=== PATIENT | female | born 1990 | race Caucasian/White ===

== ENCOUNTER → 2016-10-25 | Outpatient (CLI) | payer BC | END | disposition home or self-care (01) | LOC: LABWHC1 12:43 | PROVIDERS: ATTEND Internal Medicine Endocrinology, Diabetes & Metabolism | DX: E03.9 Hypothyroidism, unspecified (principal); E55.9 Vitamin D deficiency, unspecified | CPT/HCPCS: 36415; 82306; 84443 ==

== ENCOUNTER → 2017-03-13 | Outpatient (CLI) | payer BC ==
[2017-03-13 13:31] VITALS: BP 120/85; PULSE 75; RESP 16; TEMP 97.6; BMI 38.8
--- NOTE | 2017-03-13 15:03 | P.HPBAR ---
Bariatric H&P - History & Physicial H&P Date: 03/13/17 History & Physicial: Visit/CC: sleeve consult Patient initial contact: Initial weight: 97.069 kg Initial weight in pounds: 214.00 Height: 5 ft 2.25 in Initial BMI: 38.8 Last weight: Current weight: 97.069 kg Current weight in pounds: 214.00 Current BMI: 38.8 [place] body weight (based on NIH guidelines): 50.462 kg Excess body weight loss: 0.0% The patient is a 26 year-old F who presents for Bariatric Assessment. Patient presents today to discuss bariatric surgery. She has been investigating weight loss surgery for quite some time. She has a close friend who underwent sleeve gastrectomy in the past. She went to a recent bariatric seminar. She is interested in sleeve gastrectomy at this time. She has tried a variety of different weight loss programs thus far without any sustained success. She complains of mild GERD symptoms at times depending on what she eats. No history of DVT or dysphagia. She just recently began her 6 month supervised weight loss program. She has a history of microscopic colitis and was taking Asacol for a while. No history of ulcerative colitis or Crohn's. She has infertility issues and she is hoping that her weight loss will improve that. Review of Systems The patient denies any acute changes in vision or hearing, no dysphagia or odynophagia, no chest pain or shortness of breath, no dysuria or hematuria, no headache, no runny nose, no rectal bleeding or melena, no unexplained weight loss Past Medical History Past Medical History: Sleep Apnea/CPAP/BIPAP, Thyroid Disorder Additional Past Medical History / Comment(s): infertility, "Microscopic" colitis History of Any Multi-Drug Resistant Organisms: None Reported Past Surgical History: Orthopedic Surgery Additional Past Surgical History / Comment(s): bilateral bunyon surgery, plastic surgery from dog attack Past Anesthesia/Blood Transfusion Reactions: Previous Problems w/ Anesthesia Additional Past Anesthesia/Blood Transfusion Reaction / Comm: post anesthesia low heart rate agitation Past Psychological History: No Psychological Hx Reported Smoking Status: Former smoker - Past Family History Mother Additional Family Medical History / Comment(s): morbid obesity, has had bariatric sx Surgical - Exam Vital Signs Temp Pulse Resp BP 97.6 F 75 16 120/85 03/13/17 13:15 03/13/17 13:15 03/13/17 13:15 03/13/17 13:15 Physical exam: General: Well-developed, well-nourished HEENT: Normocephalic, sclerae nonicteric Abdomen: Nontender, nondistended Extremities: No edema Neuro: Alert and oriented Bariatric Assessment & Plan (1) Obesity (BMI 35.0-39.9 without comorbidity) Narrative/Plan: Patient will complete her 6 month supervised weight loss program. We will tentatively schedule patient for upper endoscopy in June. The surgical procedures were once again discussed along with their risks and benefits in detail. All questions were appropriately answered. The patient will contact me if any additional questions arise. Status: Acute Bariatric Checklist Checklist: Plan: Checklist: EGD: 1. Hiatal hernia: 2. H. Pylori: HgbA1c: Vitamin D: Smoking: Former smoker Primary care physician referral: Rafal Goetz Psychiatry clearance: Cardiology clearance: Sleep study: Diet journal: VTE risk score: VTE risk level: Rehab needs at discharge:
== END | disposition home or self-care (01) ==
LOC: BARWHC3 13:03
PROVIDERS: ATTEND Surgery
DX: E66.9 Obesity, unspecified (principal); Z68.38 Body mass index [BMI] 38.0-38.9, adult; Z87.891 Personal history of nicotine dependence
CPT/HCPCS: 99201

== ENCOUNTER → 2017-03-14 | Outpatient (CLI) | payer BC | END | disposition home or self-care (01) | LOC: LABWHC1 07:36 | PROVIDERS: ATTEND Internal Medicine Endocrinology, Diabetes & Metabolism | DX: E55.9 Vitamin D deficiency, unspecified (principal); E03.8 Other specified hypothyroidism; R53.83 Other fatigue; Z13.220 Encounter for screening for lipoid disorders; Z13.1 Encounter for screening for diabetes mellitus | CPT/HCPCS: 36415; 80061; 82306; 82533; 82947; 84443 ==

== ENCOUNTER 2017-05-01 19:21 | Emergency (ER) | payer BC ==
[2017-05-01 19:51] VITALS: RESP 18
[2017-05-01] MEDS ORDERED: SODIUM CHLORIDE 0.9% 1,000 ML IV STA (20:16)
[2017-05-01] MEDS ORDERED: HYDROmorphone 1 MG/ML 1 ML SYRINGE IVP STA (20:16)
[2017-05-01] MEDS ORDERED: ONDANSETRON 4 MG/2 ML VIAL IVP STA (20:16)
--- NOTE | 2017-05-01 20:46 | XR ---
EXAMINATION TYPE: XR KUB DATE OF EXAM: 05/01/2017 COMPARISON: NONE HISTORY: Pain TECHNIQUE: Single supine KUB image of the abdomen is obtained FINDINGS: Small bowel demonstrates no evidence for dilatation or air fluid levels. Gas and fecal material is seen in non-distended colon. No convincing evidence for pneumoperitoneum. No unusual calcifications. The lung bases are clear. The osseous structures are intact. IMPRESSION: 1. Overall nonobstructive bowel gas pattern.
[2017-05-01 20:47] LABS: Basophils # (A) 0.1 k/uL (0-0.2); Basophils % (A) 0 %; CH 31.8; CHCM 34.4; Eosinophils # (A) 0.1 k/uL (0-0.7); Eosinophils % (A) 1 %; HCT 39.3 % (34.0-46.0); HDW 2.61; HGB 13.1 gm/dL (11.4-16.0); Luc # (Auto) 0.16; Luc % (Auto) 1; Lymphocytes # (A) 1.5 k/uL (1.0-4.8); Lymphocytes % (A) 10 %; MCH 31.1 pg (25.0-35.0); MCHC 33.4 g/dL (31.0-37.0); Mean Platelet Volume 7.1; Monocytes # (A) 0.5 k/uL (0-1.0); Monocytes % (A) 3 %; Neutrophils # (A) 12.6 k/uL (1.3-7.7); Neutrophils % (A) 84 %; RBC 4.23 m/uL (3.80-5.40); RDW 13.1 % (11.5-15.5); WBC (Perox) 14.28
[2017-05-01 20:56] LABS: ALT 35 U/L (9-52); AST 20 U/L (14-36); Alkaline Phosphatase 84 U/L (38-126); Amylase 31 U/L (30-110); Anion Gap 9 mmol/L; Blood Urea Nitrogen 12 mg/dL (7-17); Calcium 9.3 mg/dL (8.4-10.2); Carbon Dioxide 24 mmol/L (22-30); Chloride 105 mmol/L (98-107); Glucose 110 mg/dL (74-99); Iron 42 ug/dL (37-170); Non-African American GFR(MDRD) >60 (>60 ml/min/1.73 sqM); Potassium 4.3 mmol/L (3.5-5.1); Sodium 138 mmol/L (137-145); Total Bilirubin 0.4 mg/dL (0.2-1.3); Total Protein 6.9 g/dL (6.3-8.2)
[2017-05-01 20:59] LABS: Appearance,Urine Clear (Clear); Bacteria,Urine Rare /hpf; Bilirubin,Urine Negative (Negative); Glucose,Urine (UA) Negative (Negative); Ketones,Urine Negative (Negative); Leukocyte Esterase,Urine Small (Negative); Mucus,Urine Rare /hpf; Nitrite,Urine Negative (Negative); PH, Urine 5.5 (5.0-8.0); Particle Count 4855; Protein,Urine Trace (Negative); RBC,Urine <1 /hpf (0-5); Specific Gravity,Urine 1.026 (1.001-1.035); Squamous Epithelial Cell,Urine 4 /hpf (0-4); UA Billing (MACRO vs. MICRO) MICRO; Urobilinogen,Urine <2.0 mg/dL (<2.0); WBC,Urine 2 /hpf (0-5)
[2017-05-01 21:05] LABS: % Iron Saturation 13.8 % (20-50); Total Iron Binding Capacity 305 ug/dL (265-497)
--- NOTE | 2017-05-01 22:47 | ED ---
Abdominal Pain HPI <Esau Kelly - Last Filed: 05/02/17 00:18> - General Source: patient, family Mode of arrival: ambulatory Limitations: no limitations <Mabel Weinstein - Last Filed: 05/02/17 04:43> - General Chief Complaint: Abdominal Pain Stated Complaint: Abd Pain Time Seen by Provider: 05/01/17 19:57 - History of Present Illness Initial Comments: 26 year-old female patient presents to emergency department today for complaints of severe lower abdominal pain. The patient states that she had a few episodes of diarrhea and some abdominal cramping while at work today. Patient states when she came home she had a very large forceful liquid bowel movement, and immediate pain across her lower abdomen. Patient states the pain is sharp and severe. Patient states the pain worsens with any movement. 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 Patient denies any dysuria, hematuria, urinary urgency or frequency. Denies any abnormal vaginal discharge. Patient denies any fever, chills, chest pain, shortness of breath, dizziness, weakness, nausea, vomiting, or constipation. Patient states that her bowel movements are usually regular. Mother is in room with patient and is concerned because there is a family history of hemachromatosis. Patient was seen at urgent care clinic today and was sent here for concerns of rule out appendicitis and ectopic as patient has been trying to become . Patient states she has been trying for the last 2 years to become without success. Patient states she did have a procedure done to her right fallopian tube and the pain feels similar to that. Patient denies any history of . (Mabel Weinstein) - Related Data Home Medications Medication Instructions Recorded Confirmed Cholecalciferol [Vitamin D3] 5,000 unit PO DAILY 03/12/17 05/01/17 Levothyroxine Sodium [Synthroid] 50 mcg PO QAM 03/12/17 05/01/17 Ergocalciferol [Vitamin D2] 50,000 unit PO MO 05/01/17 05/01/17 Allergies Allergy/AdvReac Type Severity Reaction Status Date / Time dimethicone Allergy Rash/Hives Verified 05/01/17 20:18 [From A and D Emollient] glycerin Allergy Rash/Hives Verified 05/01/17 20:18 [From A and D Emollient] neomycin Allergy Rash/Hives Verified 05/01/17 19:51 stearyl alcohol Allergy Rash/Hives Verified 05/01/17 20:18 [From A and D Emollient] Review of Systems ROS Other: All systems not noted in ROS Statement are negative. <KellyEsau - Last Filed: 05/02/17 00:18> ROS Other: All systems not noted in ROS Statement are negative. <Mabel Weinstein - Last Filed: 05/02/17 04:43> ROS Statement: Those systems with pertinent positive or pertinent negative responses have been documented in the HPI. Past Medical History Past Medical History: Sleep Apnea/CPAP/BIPAP, Thyroid Disorder Additional Past Medical History / Comment(s): infertility, "Microscopic" colitis History of Any Multi-Drug Resistant Organisms: None Reported Past Surgical History: Orthopedic Surgery Additional Past Surgical History / Comment(s): bilateral bunyon surgery, plastic surgery from dog attack Past Anesthesia/Blood Transfusion Reactions: Previous Problems w/ Anesthesia Additional Past Anesthesia/Blood Transfusion Reaction / Comment(s): post anesthesia low heart rate agitation Past Psychological History: No Psychological Hx Reported Smoking Status: Former smoker Past Alcohol Use History: Rare Past Drug Use History: None Reported - Past Family History Mother Additional Family Medical History / Comment(s): morbid obesity, has had bariatric sx <Mabel Weinstein - Last Filed: 05/02/17 04:43> General Exam Limitations: no limitations General appearance: alert, in distress (Mild) Eye exam: Present: normal appearance, PERRL, EOMI. Absent: scleral icterus, conjunctival injection, periorbital swelling ENT exam: Present: normal exam, mucous membranes moist Neck exam: Present: normal inspection. Absent: tenderness, meningismus, lymphadenopathy Respiratory exam: Present: normal lung sounds bilaterally. Absent: respiratory distress, wheezes, rales, rhonchi, stridor Cardiovascular Exam: Present: regular rate, normal rhythm, normal heart sounds. Absent: systolic murmur, diastolic murmur, rubs, gallop, clicks GI/Abdominal exam: Present: soft, tenderness (Extremely tender to palpation to the right lower quadrant and left lower quadrant.), guarding, normal bowel sounds. Absent: distended, rebound, rigid External exam: Present: normal external exam. Absent: erythema, swelling, lesions, lacerations, ecchymosis Speculum exam: Present: normal speculum exam, vaginal discharge (White physiologic discharge). Absent: erythema, cervical discharge, vaginal bleeding , tissue By manual exam: Present: cervical motion tenderness, adnexal tenderness (Left), uterine tenderness. Absent: normal by manual exam, adnexal mass, uterine enlargement Extremities exam: Present: normal inspection, full ROM, normal capillary refill. Absent: tenderness, pedal edema, joint swelling, calf tenderness Back exam: Present: normal inspection. Absent: CVA tenderness (R), CVA tenderness (L) Neurological exam: Present: alert, oriented X3, CN II-XII intact Psychiatric exam: Present: normal affect, normal mood Skin exam: Present: warm, dry, intact, normal color. Absent: rash <Mabel Weinstein - Last Filed: 05/02/17 04:43> Course <Esau Kelly - Last Filed: 05/02/17 00:18> <Mabel Weinstein - Last Filed: 05/02/17 04:43> Vital Signs 05/01/17 05/01/17 05/02/17 19:48 20:11 00:42 Temperature 99.0 F 98.3 F Pulse Rate 94 71 61 Respiratory 18 18 18 Rate Blood Pressure 133/81 139/89 105/55 O2 Sat by Pulse 100 100 99 Oximetry - Reevaluation(s) Reevaluation #1: 05/02/17 00:18 Patient reevaluated by myself, Dr. Kelly. Patient resting comfortably in bed. Abdomen is soft with mild left lower pelvic tenderness. Patient is made aware of ultrasound findings. Patient is also aware of beta hCG. Case was discussed in detail with Dr. Skinner, covering for Dr. zaldivar to yair who does recommend repeat beta hCG in 48 hours and follow up following that. Patient is made aware specifically that ectopic has not been ruled out at this time. Patient is advised to return if she has increased pain, vaginal bleeding, shortness of breath, lightheadedness or dizziness, feeling like she is going to pass out or worsening symptoms. (Esau Kelly) Medical Decision Making - Lab Data Result diagrams: 05/01/17 20:32 05/01/17 20:32 <Esau Kelly - Last Filed: 05/02/17 00:18> - Lab Data Result diagrams: 05/01/17 20:32 05/01/17 20:32 - Radiology Data Radiology results: report reviewed, image reviewed <Mabel Weinstein - Last Filed: 05/02/17 04:43> - Medical Decision Making 26 year-old female patient presented for evaluation of pelvic pain and diarrhea. KUB x-ray of the abdomen was obtained prior to hCG showed no overall nonobstructive bowel gas pattern. Lab work was unremarkable but did show a beta hCG level of 76, and a white blood cell count was elevated at 15. Urine was sent for culture. Pelvic ultrasound was obtained and did show a 4.6 cm mass on the left ovary, there was also some free fluid in the pelvis thought to possibly a ruptured hemorrhagic cyst. They were unable to rule out ectopic . Dr. Kelly my attending did speak to Dr. Skinner the chief station engineer on- call for Dr. Larson who states that patient can be discharged home at this time to follow-up in the office after repeat B-HCG. Also recommended a repeat beta hCG Quant in 48 hours. Patient was instructed to use Tylenol for pain control. Instructed to follow-up with her primary care physician as well as Dr. INSURANCE LOSS ADJUSTER in one to 2 days. Instructed to return here immediately for any new , worsening, or concerning symptoms. Patient verbalized understanding and agreed with this plan. (Mabel Weinstein) - Lab Data Lab Results 05/01/17 05/01/17 05/01/17 Range/Units 20:32 20:32 20:32 WBC 15.0 H (3.8-10.6) k/uL RBC 4.23 (3.80-5.40) m/uL Hgb 13.1 (11.4-16.0) gm/dL Hct 39.3 (34.0-46.0) % MCV 93.0 (80.0-100.0) fL MCH 31.1 (25.0-35.0) pg MCHC 33.4 (31.0-37.0) g/dL RDW 13.1 (11.5-15.5) % Plt Count 338 (150-450) k/uL Neutrophils % 84 % Lymphocytes % 10 % Monocytes % 3 % Eosinophils % 1 % Basophils % 0 % Neutrophils # 12.6 H (1.3-7.7) k/uL Lymphocytes # 1.5 (1.0-4.8) k/uL Monocytes # 0.5 (0-1.0) k/uL Eosinophils # 0.1 (0-0.7) k/uL Basophils # 0.1 (0-0.2) k/uL Sodium 138 (137-145) mmol/L Potassium 4.3 (3.5-5.1) mmol/L Chloride 105 (98-107) mmol/L Carbon Dioxide 24 (22-30) mmol/L Anion Gap 9 mmol/L BUN 12 (7-17) mg/dL Creatinine 0.70 (0.52-1.04) mg/dL Est GFR (MDRD) Af Amer >60 (>60 ml/min/1.73 sqM) Est GFR (MDRD) Non-Af >60 (>60 ml/min/1.73 sqM) Glucose 110 H (74-99) mg/dL Plasma Lactic Acid Peter (0.7-2.0) mmol/L Calcium 9.3 (8.4-10.2) mg/dL Iron 42 (37-170) ug/dL TIBC 305 (265-497) ug/dL % Saturation 13.8 L (20-50) % Total Bilirubin 0.4 (0.2-1.3) mg/dL AST 20 (14-36) U/L ALT 35 (9-52) U/L Alkaline Phosphatase 84 (38-126) U/L Total Protein 6.9 (6.3-8.2) g/dL Albumin 4.2 (3.5-5.0) g/dL Amylase 31 (30-110) U/L Lipase 22 L (23-300) U/L HCG, Quant mIU/mL Urine Color Yellow Urine Appearance Clear (Clear) Urine pH 5.5 (5.0-8.0) Ur Specific Parker 1.026 (1.001-1.035) Urine Protein Trace H (Negative) Urine Glucose (UA) Negative (Negative) Urine Ketones Negative (Negative) Urine Blood Negative (Negative) Urine Nitrite Negative (Negative) Urine Bilirubin Negative (Negative) Urine Urobilinogen <2.0 (<2.0) mg/dL Ur Leukocyte Esterase Small H (Negative) Urine RBC <1 (0-5) /hpf Urine WBC 2 (0-5) /hpf Ur Squamous Epith Cells 4 (0-4) /hpf Urine Bacteria Rare H (None) /hpf Urine Mucus Rare H (None) /hpf Urine HCG, Qual (Not Detectd) 05/01/17 05/01/17 05/01/17 Range/Units 20:32 20:32 20:32 WBC (3.8-10.6) k/uL RBC (3.80-5.40) m/uL Hgb (11.4-16.0) gm/dL Hct (34.0-46.0) % MCV (80.0-100.0) fL MCH (25.0-35.0) pg MCHC (31.0-37.0) g/dL RDW (11.5-15.5) % Plt Count (150-450) k/uL Neutrophils % % Lymphocytes % % Monocytes % % Eosinophils % % Basophils % % Neutrophils # (1.3-7.7) k/uL Lymphocytes # (1.0-4.8) k/uL Monocytes # (0-1.0) k/uL Eosinophils # (0-0.7) k/uL Basophils # (0-0.2) k/uL Sodium (137-145) mmol/L Potassium (3.5-5.1) mmol/L Chloride (98-107) mmol/L Carbon Dioxide (22-30) mmol/L Anion Gap mmol/L BUN (7-17) mg/dL Creatinine (0.52-1.04) mg/dL Est GFR (MDRD) Af Amer (>60 ml/min/1.73 sqM) Est GFR (MDRD) Non-Af (>60 ml/min/1.73 sqM) Glucose (74-99) mg/dL Plasma Lactic Acid Peter 1.4 (0.7-2.0) mmol/L Calcium (8.4-10.2) mg/dL Iron (37-170) ug/dL TIBC (265-497) ug/dL % Saturation (20-50) % Total Bilirubin (0.2-1.3) mg/dL AST (14-36) U/L ALT (9-52) U/L Alkaline Phosphatase (38-126) U/L Total Protein (6.3-8.2) g/dL Albumin (3.5-5.0) g/dL Amylase (30-110) U/L Lipase (23-300) U/L HCG, Quant 76.2 mIU/mL Urine Color Urine Appearance (Clear) Urine pH (5.0-8.0) Ur Specific Parker (1.001-1.035) Urine Protein (Negative) Urine Glucose (UA) (Negative) Urine Ketones (Negative) Urine Blood (Negative) Urine Nitrite (Negative) Urine Bilirubin (Negative) Urine Urobilinogen (<2.0) mg/dL Ur Leukocyte Esterase (Negative) Urine RBC (0-5) /hpf Urine WBC (0-5) /hpf Ur Squamous Epith Cells (0-4) /hpf Urine Bacteria (None) /hpf Urine Mucus (None) /hpf Urine HCG, Qual Detected (Not Detectd) - Radiology Data KUB x-ray of the abdomen shows small bowel damages no evidence for dilation or air-fluid levels. Gas and fecal material seen in nondistended colon. No convincing evidence for pneumoperitoneum. No unusual calcifications. The lung bases are clear. The osseous structures are intact. Impression by Dr. Dugan showed overall nonobstructive bowel gas pattern. Transvaginal ultrasound of the pelvis shows there is no IUP seen at this time. Cannot exclude ectopic . Placenta and amniotic fluid cannot be adequately evaluated due to the early gestational age. Uterus and cervix are unremarkable with no myometrial mass. Ovaries show 4.6 sonometer isoechoic mass to the left ovary could reflect a complex cyst. No sonographic findings of torsion. Right ovary is not identified. No clear adnexal mass. There is complex material in the pelvic cul-de-sac, likely blood clot surrounded by serosanguineous fluid. Impression by Dr. Edwards shows no IUP. Complex free pelvic fluid is likely hemorrhagic. Question rupture of a 4.6 on May left ovarian mass, potentially a complex cyst. Ruptured ectopic is not fully excluded, but seems unlikely with a beta hCG of less than 100. Recommend clinical follow-up. (Mabel Weinstein) Disposition <Esau Kelly - Last Filed: 05/02/17 00:18> Time of Disposition: 00:29 <Mabel Weinstein - Last Filed: 05/02/17 04:43> Clinical Impression: Pelvic pain Disposition: HOME SELF-CARE Condition: Good Instructions: Ectopic (ED), Pelvic Pain in Women (ED), Abdominal Pain in (ED) Additional Instructions: Return to lab for repeat hCG level in 48 hours. Ectopic has not been ruled out at this point. Also concerned for ruptured ovarian cyst. Call tomorrow to make appointment for follow-up with Dr. Larson. Follow up with primary care physician for recheck in 1-2 days. Return immediately for any new , worsening, or concerning symptoms. Referrals: Rafal Goetz MD [Primary Care Provider] - 1-2 days Elsy Larson MD [STAFF PHYSICIAN] - 1-2 days
--- NOTE | 2017-05-01 23:41 | US ---
EXAM: US , Transvaginal CLINICAL HISTORY: Reason: Pain TECHNIQUE: Real-time transvaginal obstetrical ultrasound of the maternal pelvis and a first trimester with image documentation. Transvaginal imaging was used for better evaluation of the fetus and adnexa. COMPARISON: No relevant prior studies available. FINDINGS: Gestation: No IUP. Cannot exclude ectopic . Placenta/amniotic fluid: Cannot be adequately evaluated due to the early gestational age. Uterus/cervix: Unremarkable. No myometrial mass. Ovaries: 4.6 cm isoechoic mass to the left ovary could reflect a complex cyst. No sonographic findings of torsion. Right ovary is not identified. No clear adnexal mass. Free fluid: Complex material in the pelvic cul-de-sac, likely blood clot surrounded by serosanguinous fluid. IMPRESSION: No IUP. Complex free pelvic fluid is likely hemorrhagic. Question rupture of a 4.6 cm left ovarian mass, potentially a complex cyst. Ruptured ectopic is not fully excluded, but seems unlikely with a beta-hCG of less than 100. Recommend clinical follow-up. Critical Value Communications 05/01/17 23:26 Call From [facility] 05/01/17 23:46 Verify Receipt Verified receipt with FLORENCIO Zuñiga in the ER for SUZI Xie @ [phone]
[2017-05-01] MEDS ORDERED: MORPHINE SULFATE 4 MG/ML SYRINGE IVP STA (23:42)
[2017-05-02 00:44] VITALS: BP 105/55; PULSE 61; TEMP 98.3
== END 2017-05-02 00:43 | disposition home or self-care (01) ==
LOC: EC 19:21
DX: R10.2 Pelvic and perineal pain (principal); R10.30 Lower abdominal pain, unspecified; R19.7 Diarrhea, unspecified; E07.9 Disorder of thyroid, unspecified; N83.9 Noninflammatory disorder of ovary, fallopian tube and broad ligament, unspecified; G47.30 Sleep apnea, unspecified; Z87.891 Personal history of nicotine dependence; Z99.89 Dependence on other enabling machines and devices; Z98.890 Other specified postprocedural states; Z79.899 Other long term (current) drug therapy; Z88.1 Allergy status to other antibiotic agents; Z88.8 Allergy status to other drugs, medicaments and biological substances; Z53.9 Procedure and treatment not carried out, unspecified reason
CPT/HCPCS: 96375 ×3; 96361 ×3; 96374 ×2; 99284 ×2; 36415; 80053; 82150; 83540; 83550; 83605; 83690; 85025; 81001; 81025; 84702; 87086; 74000; 76817; J2270; J2405; J1170; 76801

== ENCOUNTER → 2017-05-03 | Outpatient (CLI) | payer BC | END | disposition home or self-care (01) | LOC: LABWHC1 12:53 | PROVIDERS: ATTEND Nurse Practitioner | DX: R10.2 Pelvic and perineal pain (principal) | CPT/HCPCS: 36415; 84702 ==

== ENCOUNTER → 2017-05-05 | Outpatient (CLI) | payer BC | END | disposition home or self-care (01) | LOC: LABWHC1 14:31 | PROVIDERS: ATTEND Obstetrics & Gynecology Obstetrics | DX: N91.2 Amenorrhea, unspecified (principal) | CPT/HCPCS: 36415; 84144; 84439; 84443; 84702 ==

== ENCOUNTER → 2017-05-16 | Outpatient (CLI) | payer BC ==
--- NOTE | 2017-05-16 11:21 | US ---
EXAMINATION TYPE: US OB <=14 wks transvag DATE OF EXAM: 05/16/2017 COMPARISON: 05/01/2017 CLINICAL HISTORY: R68.89 LT LOWER QUADRANT PAIN,ABN CLINICAL FINDINGS. EXAM PERFORMED: Transvaginal (TV) and Transabdominal (TA) EXAM MEASUREMENTS: GESTATIONAL AGE / DATING Physician Established: none Dates by LMP: (7 weeks/3 days) EDC: 12/30/2017 Dates by First Scan: no previous Dates by Current Scan for: (5 weeks/5 days) EDC: 01/11/2018 MATERNAL ANATOMY Uterus: 9.8 x 4.3 x 5.3 cm Right Ovary: not visualized Left Ovary: 5.7 x 4.0 x 5.4 cm Post CDS / Adnexa: wnl Presence of free fluid: no Presence of corpus luteal cyst: probable, 2 simple cyst, 1 hemorraghic cyst Presence of subchorionic bleed: no GESTATION / SURVEY CRL: 0.2 (5 weeks/5 days) MSD: 1.4 (5 weeks/4 days) Yolk Sac (normal less than 6mm): 4 Heart Rate: 106 bpm Rhythm: Normal IUP: Viable IUP Date of LMP: 03/25/2017 3 cysts on left ovary 2 simple measuring 2.9 x 2.9 x 2.8 cm and 2.0 x 1.7 x 2.2 cm, hemorraghic measu ring 3.3 x 3.1 x 2.5 cm Single live intrauterine gestation is now identified as gestational sac, yolk sac, and pole are present. No free fluid is seen in pelvic cul-de-sac. Right ovary is not clearly seen on today's study. Left ovary is identified. Within left ovary on curr ent study there is 3.3 cm oval anechoic lesion with internal low lying echoes felt to reflect new hem orrhagic cyst. 2 additional small simple appearing cysts in left ovary are identified. IMPRESSION: Single live intrauterine gestation is now confirmed. There is new 3.3 cm hemorrhagic cyst within left ovary. There is interval resolution of nonsimple fluid in the pelvic cul-de-sac.
== END | disposition home or self-care (01) ==
LOC: RADUSWWP 10:03
PROVIDERS: ATTEND Obstetrics & Gynecology Obstetrics
DX: O26.891 Other specified pregnancy related conditions, first trimester (principal); N83.202 Unspecified ovarian cyst, left side; Z3A.01 Less than 8 weeks gestation of pregnancy
CPT/HCPCS: 76801; 76817

== ENCOUNTER → 2017-06-07 | Outpatient (CLI) | payer BC | END | disposition home or self-care (01) | LOC: LABWHC1 09:50 | PROVIDERS: ATTEND Internal Medicine Endocrinology, Diabetes & Metabolism | DX: E03.8 Other specified hypothyroidism (principal) | CPT/HCPCS: 36415; 84443 ==

== ENCOUNTER → 2017-10-06 | Outpatient (CLI) | payer BC ==
[~2017-10-06] MED LIST: Pre Op ABX Message 1 EACH MISC MISCELLANE ONE
== END | disposition home or self-care (01) ==
LOC: LABWHC1 08:21
PROVIDERS: ATTEND Internal Medicine Endocrinology, Diabetes & Metabolism
DX: E55.9 Vitamin D deficiency, unspecified (principal); E03.8 Other specified hypothyroidism
CPT/HCPCS: 36415; 82306; 84443

== ENCOUNTER → 2017-11-14 | Outpatient (CLI) | payer BC | END | disposition home or self-care (01) | LOC: LABWHC1 08:21 | PROVIDERS: ATTEND Internal Medicine Endocrinology, Diabetes & Metabolism | DX: E55.9 Vitamin D deficiency, unspecified (principal); E03.8 Other specified hypothyroidism | CPT/HCPCS: 36415; 82306; 84443 ==

== ENCOUNTER 2017-12-28 23:08 | Outpatient (CLI) | payer BC ==
[2017-12-29 00:02] VITALS: BP 124/79; PULSE 75; RESP 16; TEMP 98
--- NOTE | 2018-01-01 08:12 | P.MSEPDOC ---
Presenting Problems - Arrival Data Date of Arrival on Unit: 12/28/17 Time of Arrival on Unit: 23:08 Mode of Transport: Ambulatory - Complaint OB-Reason for Admission/Chief Complaint: Decreased Movement Medical History - Information : 1 Para: 0 Term: 0 : 0 Abortions: Spontaneous or Elective: 0 Number of Living Children: 0 - Gestational Age Gestational Age by SHABBIR (wks/days): 38 Weeks and 1 Days Review of Systems - Review of Systems Constitutional: No problems Breast: No problems ENT: No problems Cardiovascular: No problems Respiratory: No problems Gastrointestinal: No problems Genitourinary: No problems Musculoskeletal: No problems Neurological: No problems Skin: No problems Vital Signs - Temperature Temperature: 98.0 F - Pulse Right Supine Brachial Pulse Rate: 75 Pulse Assessment Method: Automatic Cuff - Respirations Respiratory Rate: 16 Oxygen Delivery Method: Room Air O2 Sat by Pulse Oximetry: 99 - Blood Pressure Right Arm Supine Blood Pressure: 124/79 Blood Pressure Mean: 94 Medical Screen Scoring (Pre) - Cervical Exam Dilation: Exam Deferred Effacement: Exam Deferred Membranes: Intact - Uterine Contractions Frequency: > 5 minutes apart = 1 - Maternal Vital Signs Maternal Temperature: N/A Maternal Blood Pressure: N/A Signs of Preeclampsia: N/A Maternal Respirations: N/A - Pain Assessment Pain Scale Used: Numeric (1 - 10) Pain Intensity: 0 Pain Behavior: None Exhibited - Maternal Trauma Maternal Trauma: N/A - Assessment Baseline FHR: 125 Heart Rate - NICHD Category: Category I (Normal) = 0 NST: Reactive Station: N/A - Total Score Total Score (Pre): 1 - Level of Risk Level of Risk: Low (0-5) Physician Notification (Pre) - Physician Notified Physician Notified Date: 12/28/17 Physician Notified Time: 23:41 Physician/Practitioner Notifed:: Susanne Spoke With: Susanne New Order Received: Yes - Notification Comment Comment: Discharge to home Disposition - Disposition OB Disposition: Discharge to home Transferred to:: Home Discharge Date: 12/28/17 Discharge Time: 23:45 I agree with the RN Medical Screening Exam: Yes Risk & Benefit of care provided described in d/c instruction: Yes Diagnosis: DECREASED MOVEMENTS, THIRD TRIMESTER, UNSP
== END 2017-12-28 23:45 | disposition home or self-care (01) ==
LOC: FBPOP 23:08
PROVIDERS: ATTEND Obstetrics & Gynecology Obstetrics
DX: O36.8130 Decreased fetal movements, third trimester, not applicable or unspecified (principal); Z3A.38 38 weeks gestation of pregnancy
CPT/HCPCS: 59025; 99213

== ENCOUNTER 2017-12-29 12:36 | Outpatient (CLI) | payer BC ==
[2017-12-29 13:59] LABS: Appearance,Urine Cloudy (Clear); Bacteria,Urine Rare /hpf; Bilirubin,Urine Negative (Negative); Blood,Urine Negative (Negative); Color,Urine Yellow; Glucose,Urine (UA) Negative (Negative); Ketones,Urine Negative (Negative); Leukocyte Esterase,Urine Large (Negative); Mucus,Urine Occasional /hpf; Nitrite,Urine Negative (Negative); PH, Urine 5.5 (5.0-8.0); Protein,Urine Trace (Negative); RBC,Urine 2 /hpf (0-5); Specific Gravity,Urine 1.019 (1.001-1.035); Squamous Epithelial Cell,Urine 4 /hpf (0-4); Urobilinogen,Urine <2.0 mg/dL (<2.0); WBC,Urine 10 /hpf (0-5)
[2017-12-29 14:04] VITALS: BP 125/84; PULSE 69; RESP 16; TEMP 97.7
[2017-12-29 14:07] LABS: Basophils % (A) 0 %; Eosinophils # (A) 0.1 k/uL (0-0.7); Eosinophils % (A) 1 %; HCT 36.2 % (34.0-46.0); HGB 11.6 gm/dL (11.4-16.0); Lymphocytes # (A) 1.6 k/uL (1.0-4.8); Lymphocytes % (A) 17 %; MCH 27.7 pg (25.0-35.0); MCV 86.6 fL (80.0-100.0); Mean Platelet Volume 7.6; Monocytes # (A) 0.5 k/uL (0-1.0); Monocytes % (A) 5 %; Neutrophils % (A) 75 %; Platelet Count 247 k/uL (150-450); RBC 4.18 m/uL (3.80-5.40); RDW 13.6 % (11.5-15.5); WBC 9.3 k/uL (3.8-10.6)
[2017-12-29 14:17] LABS: ALT 27 U/L (9-52); AST 21 U/L (14-36); Blood Urea Nitrogen 7 mg/dL (7-17); LDH 510 U/L (313-618); Uric Acid 5.2 mg/dL (3.7-7.4)
--- NOTE | 2018-01-01 08:11 | P.MSEPDOC ---
Presenting Problems - Arrival Data Date of Arrival on Unit: 12/29/17 Time of Arrival on Unit: 12:50 Mode of Transport: Ambulatory - Complaint OB-Reason for Admission/Chief Complaint: Decreased Movement, Headache, Visual Disturbances, Other Comment: lt eye line through Medical History - Information : 1 Para: 0 Term: 0 : 0 Abortions: Spontaneous or Elective: 0 Number of Living Children: 0 - Gestational Age Gestational Age by SHABBIR (wks/days): 38 Weeks and 1 Days - History Comment: no preg. complications Review of Systems - Review of Systems Constitutional: No problems Breast: No problems ENT: No problems Cardiovascular: No problems Respiratory: No problems Gastrointestinal: No problems Genitourinary: No problems Musculoskeletal: No problems Neurological: No problems Skin: No problems Vital Signs - Temperature Temperature: 97.7 F Temperature Source: Oral - Pulse Apical Pulse Rate: 69 Pulse Assessment Method: Auscultation - Respirations Respiratory Rate: 16 Oxygen Delivery Method: Room Air O2 Sat by Pulse Oximetry: 98 - Blood Pressure Right Arm Blood Pressure: 125/84 Blood Pressure Mean: 97 Blood Pressure Source: Automatic Cuff Medical Screen Scoring (Pre) - Cervical Exam Dilation: Exam Deferred - Uterine Contractions Frequency: N/A Duration: N/A Intensity: N/A - Maternal Vital Signs Maternal Temperature: N/A Maternal Blood Pressure: N/A Signs of Preeclampsia: N/A Maternal Respirations: N/A - Pain Assessment Pain Location and Character: Head Pain Scale Used: Numeric (1 - 10) Pain Intensity: 5 Pain Description: Aching Pain Frequency: today, increasing Pain Behavior: Vocalization Pain Aggravating Factors: Activity, Bright Light Non-Pharmacological Interventions: Darkened Room - Maternal Trauma Maternal Trauma: N/A - Assessment Baseline FHR: 120 Heart Rate - NICHD Category: Category I (Normal) = 0 NST: Reactive Position: N/A Station: N/A - Total Score Total Score (Pre): 0 - Level of Risk Level of Risk: Low (0-5) Physician Notification (Pre) - Physician Notified Physician Notified Date: 12/29/17 Physician Notified Time: 13:15 Physician/Practitioner Notifed:: kelly/ ya Spoke With: jannie New Order Received: Yes (triage /lab work) Medical Screen Scoring (Post) - Uterine Contractions Frequency: N/A Duration: N/A Intensity: N/A - Maternal Vital Signs Maternal Temperature: N/A Maternal Blood Pressure: N/A Signs of Preeclampsia: N/A Maternal Respirations: N/A - Pain Assessment Pain Location and Character: Head Pain Scale Used: Numeric (1 - 10) Pain Intensity: 3 Pain Description: *Acute, Aching Pain Frequency: decreasing Pain Behavior: Vocalization - Maternal Trauma Maternal Trauma: N/A - Assessment Heart Rate: 120 Heart Rate - NICHD Category: Category I (Normal) = 0 NST: Reactive Position: N/A Station: N/A - Total Score Total Score (Post): 0 - Post Treatment Level of Risk Post Treatment Level of Risk: Low (0-5) Physician Notification (Post) - Physician Notified Physician Notified Date: 12/29/17 Physician Notified Time: 15:05 Physician/Practitioner Notified:: ya Spoke With: ya New Order Received: Yes (discharge home) Disposition - Disposition OB Disposition: Discharge to home Discharge Date: 12/29/17 Discharge Time: 15:05 I agree with the RN Medical Screening Exam: Yes Risk & Benefit of care provided described in d/c instruction: Yes Diagnosis: DECREASED MOVEMENTS, THIRD TRIMESTER, UNSP
== END 2017-12-29 15:05 | disposition home or self-care (01) ==
LOC: FBPOP 12:36
PROVIDERS: ATTEND Obstetrics & Gynecology Obstetrics
DX: O36.8190 Decreased fetal movements, unspecified trimester, not applicable or unspecified (principal); Z3A.38 38 weeks gestation of pregnancy
CPT/HCPCS: 59025; 81001; 82565; 83615; 84450; 84460; 84520; 84550; 85025; 99215

== ENCOUNTER 2018-01-04 22:26 | Inpatient (IN) | payer BC ==
[2018-01-04] MEDS ORDERED: CARBOPROST TROMETHAMINE 250 MCG/ML 1 ML AMP IM PRN (23:14)
[2018-01-04] MEDS ORDERED: TERBUTALINE 1 MG/ML VIAL SQ PRN (23:14)
[2018-01-04] MEDS ORDERED: OXYTOCIN 10 UNIT/ML 1 ML VIAL IM PRN (23:14)
[2018-01-04] MEDS ORDERED: LIDOCAINE 1% (PF) 10 MG/ML (30 ML SDV) SQ PRN (23:14)
[2018-01-04] MEDS ORDERED: METHYLERGONOVINE 0.2 MG/ML 1 ML AMP IM PRN (23:14)
[2018-01-04] MEDS: LACTATED RINGERS 1,000 ML IV SCH (23:41)
[2018-01-04 23:43] VITALS: BMI 41.8
[2018-01-05 00:08] LABS: Basophils % (A) 0 %; Eosinophils # (A) 0.1 k/uL (0-0.7); Eosinophils % (A) 1 %; HCT 33.6 % (34.0-46.0); HGB 11.3 gm/dL (11.4-16.0); Lymphocytes # (A) 1.6 k/uL (1.0-4.8); Lymphocytes % (A) 13 %; MCH 29.2 pg (25.0-35.0); MCHC 33.7 g/dL (31.0-37.0); MCV 86.6 fL (80.0-100.0); Mean Platelet Volume 7.6; Monocytes # (A) 0.5 k/uL (0-1.0); Monocytes % (A) 5 %; Neutrophils # (A) 9.5 k/uL (1.3-7.7); Neutrophils % (A) 79 %; Platelet Count 249 k/uL (150-450); RBC 3.88 m/uL (3.80-5.40); RDW 13.8 % (11.5-15.5)
[2018-01-05] MEDS ORDERED: BUTORPHANOL 1 MG/ML 1 ML VIAL IV PRN (00:46)
[2018-01-05] MEDS ORDERED: OXYTOCIN 20 UNITS/1000 ML NS 1,000 ML IV SCH ×2 (05:45→16:45)
[2018-01-05] MEDS: LACTATED RINGERS 1,000 ML IV SCH ×3 (06:37→17:57)
[2018-01-05] MEDS ORDERED: ePHEDrine SULFATE/0.9% NACL/PF 50 MG/5 ML SYRINGE IV ONE (09:37)
[2018-01-05] MEDS ORDERED: fentaNYL (PF) 50 MCG/ML 5 ML AMP ONE (09:37)
[2018-01-05] MEDS ORDERED: BUPIVACAINE (PF) 0.25% 30 ML VIAL ONE (09:37)
[2018-01-05] MEDS ORDERED: SODIUM CHLORIDE 0.9% 100 ML BAG ONE (09:37)
--- NOTE | 2018-01-05 09:55 | P.HPOB ---
History of Present Illness H&P Date: 01/05/18 Chief Complaint: IUP at 39 and 1, This is a 27-year-old 1 para 0 at 39 1/7 weeks EDC of 01/11/2018. that presented to labor and delivery last evening with complaints of contractions. She progressed slowly and this morning was noted to be 4 cm. On admission she was approximately 2-3 cms. She denied loss of fluid or vaginal bleeding, and is noting good movement. Her care has been uneventful. On blood work her blood type was noted to be O+, rubella immune, RPR nonreactive, hepatitis B surface antigen negative, HIV negative, she did pass her GDS, group beta strep negative on 12/11/2017. Review of Systems Constitutional: Reports fatigue, Denies chills, Denies fever Cardiovascular: Reports edema, Denies chest pain Respiratory: Denies cough, Denies dyspnea Gastrointestinal: Denies constipation, Denies diarrhea Genitourinary: Reports Past Medical History Past Medical History: Sleep Apnea/CPAP/BIPAP, Thyroid Disorder Additional Past Medical History / Comment(s): infertility, "Microscopic" colitis History of Any Multi-Drug Resistant Organisms: None Reported Past Surgical History: Orthopedic Surgery Additional Past Surgical History / Comment(s): bilateral bunyon surgery, plastic surgery from dog attack Past Anesthesia/Blood Transfusion Reactions: Previous Problems w/ Anesthesia Additional Past Anesthesia/Blood Transfusion Reaction / Comment(s): post anesthesia low heart rate agitation Past Psychological History: No Psychological Hx Reported Smoking Status: Never smoker Past Alcohol Use History: Rare Additional Past Alcohol Use History / Comment(s): quit with Past Drug Use History: None Reported - Past Family History Mother Additional Family Medical History / Comment(s): morbid obesity, has had bariatric sx Medications and Allergies Home Medications Medication Instructions Recorded Confirmed Type Levothyroxine Sodium [Synthroid] 75 mcg PO QAM 03/12/17 01/04/18 History Ranitidine HCl [Zantac] 150 mg PO BID 12/28/17 01/04/18 History Allergies Allergy/AdvReac Type Severity Reaction Status Date / Time dimethicone Allergy Rash/Hives Verified 01/04/18 23:10 [From A and D Emollient] glycerin Allergy Rash/Hives Verified 01/04/18 23:10 [From A and D Emollient] neomycin Allergy Rash/Hives Verified 01/04/18 23:10 stearyl alcohol Allergy Rash/Hives Verified 01/04/18 23:10 [From A and D Emollient] Exam Osteopathic Statement: *. No significant issues noted on an osteopathic structural exam other than those noted in the History and Physical/Consult. - Vital Signs Vital signs: Vital Signs Temp Pulse Resp BP Pulse Ox 01/04/18 23:13 96.7 F L 66 16 131/83 01/04/18 23:09 96.7 F L 66 16 131/83 100 Intake and Output 01/04/18 01/05/18 01/05/18 22:59 06:59 14:59 Intake Total 1000 Balance 1000 Intake: Intake, IV Titration 1000 Amount Oxytocin 20 Units/1000 ml 1000 Ns 1,000 ml @ 1 MILLIUNIT/MIN 3 mls/hr IV .Q24H [facility] Rx#:[id number] Other: Weight 103.873 kg - OBG Physical Exam Abdomen: gravid Cervix: 4/70/-2 amniotomy with clear fluid noted. Uterus: enlarged Results Result Diagrams: 01/04/18 23:52 Abnormal Lab Results - Last 24 Hours (Table) 01/04/18 Range/Units 23:52 WBC 12.0 H (3.8-10.6) k/uL Hgb 11.3 L (11.4-16.0) gm/dL Hct 33.6 L (34.0-46.0) % Neutrophils # 9.5 H (1.3-7.7) k/uL Assessment and Plan (1) Term Current Visit: Yes Status: Acute Code(s): Z34.80 - ENCOUNTER FOR SUPRVSN OF NORMAL , UNSP TRIMESTER SNOMED Code(s): 60829886 Plan: Pitocin augmentation of labor was started this morning. Amniotomy was performed this morning clear fluid was obtained. Epidural as requested per patient. Anticipate spontaneous vaginal delivery later this afternoon Time with Patient: Less than 30
[2018-01-05] MEDS ORDERED: HYDROCORTISONE 2.5% RECTAL CREAM 30 GM TUBE RECTAL PRN (16:35)
[2018-01-05] MEDS ORDERED: diphenhydrAMINE 50 MG/ML 1 ML VIAL IVP PRN ×2 (16:35)
[2018-01-05] MEDS ORDERED: diphenhydrAMINE 50 MG CAP PO PRN (16:35)
[2018-01-05] MEDS ORDERED: WITCH HAZEL 1 EACH MED..PAD TOPICAL PRN (16:35)
[2018-01-05] MEDS ORDERED: SIMETHICONE 80 MG CHEWABLE PO PRN (16:35)
[2018-01-05] MEDS ORDERED: ZOLPIDEM 5 MG TAB PO PRN (16:35)
[2018-01-05] MEDS ORDERED: BENZOCAINE/MENTHOL SPRAY 1 GM/SPRAY AEROSOL TOPICAL PRN (16:35)
[2018-01-05] MEDS ORDERED: diphenhydrAMINE 25 MG CAP PO PRN (16:35)
[2018-01-05] MEDS ORDERED: IBUPROFEN 600 MG TAB PO PRN (16:35)
[2018-01-05] MEDS ORDERED: LANOLIN CREAM 5 GM TUBE TOPICAL PRN (16:35)
--- NOTE | 2018-01-05 16:40 | P.PROBDLV ---
Vaginal Delivery Note - . Vaginal Delivery Note: This is a very pleasant 27-year-old 1 para 0 that presented last night and latent labor. Patient progressed slowly through labor Pitocin augmentation of labor was begun early this morning. Patient progressed through labor amniotomy was performed and clear fluid was obtained. She eventually requested an epidural which was placed without difficulty by the anesthesia department. She progressed to complete and began pushing and had a normal spontaneous vaginal delivery of a viable male at 1613. Weight of 7 lbs. 12 oz. Apgars of 9 and 9 at one and 5 minutes respectively. Next para patient was noted to be the head was delivered without difficulty, slight downward traction delivered the anterior shoulder followed by post slight upward traction for delivery of the posterior shoulder. The the infant's body was then delivered and placed on the maternal abdomen. A spontaneous cry was noted at . The cord was then doubly clamped and cut after a 2 minute delay. The placenta was then delivered intact and inspected with three-vessel cord. The vaginal vault was then inspected, a second-degree midline vaginal laceration was was noted, and repaired in the usual fashion with 3-0 Rapide. Estimated blood loss was 300 mL, the bladder was drained after the repair was complete for approximately 100 mL of clear yellow urine. A rectal exam was performed and normal sphincter tone and mucosa was noted no defects were appreciated. Mother and tolerated delivery well and are resting comfortably.
[2018-01-05] MEDS: ACETAMINOPHEN TAB 325 MG TAB PO PRN (16:57)
[2018-01-05] MEDS ORDERED: MISOPROSTOL 200 MCG TAB RECTAL STA (17:41)
[2018-01-05] MEDS ORDERED: IBUPROFEN IV 800 MG in SODIUM CHLORIDE 0.9% 250 ML IV ONE (17:44)
[2018-01-05] MEDS: SENNOSIDES-DOCUSATE SODIUM 1 EACH TAB PO SCH (22:21)
[2018-01-06 05:38] LABS: Basophils % (A) 0 %; Eosinophils % (A) 0 %; HCT 23.3 % (34.0-46.0); Lymphocytes # (A) 1.9 k/uL (1.0-4.8); Lymphocytes % (A) 15 %; MCH 28.9 pg (25.0-35.0); MCHC 33.6 g/dL (31.0-37.0); MCV 86.2 fL (80.0-100.0); Mean Platelet Volume 8.3; Monocytes # (A) 0.7 k/uL (0-1.0); Monocytes % (A) 5 %; Neutrophils # (A) 10.3 k/uL (1.3-7.7); Neutrophils % (A) 79 %; Platelet Count 196 k/uL (150-450); WBC 13.1 k/uL (3.8-10.6)
[2018-01-06 05:44] LABS: HGB 7.8 gm/dL (11.4-16.0)
[2018-01-06] MEDS: ACETAMINOPHEN TAB 325 MG TAB PO PRN (06:25)
[2018-01-06] MEDS ORDERED: LEVOTHYROXINE 75 MCG TAB PO SCH (06:30)
--- NOTE | 2018-01-06 08:32 | P.DS ---
Providers Date of admission: 01/04/18 22:43 Expected date of discharge: 01/06/18 Attending physician: Rabia Skinner Primary care physician: Rabia Skinner - Discharge Diagnosis(es) (1) Term Current Visit: Yes Status: Acute (2) Status post vaginal delivery Current Visit: Yes Status: Acute (3) Acute blood loss anemia Current Visit: Yes Status: Acute (4) hemorrhage Current Visit: Yes Status: Acute Hospital Course: This is a very pleasant 27-year-old 1 para 0 that presented on 4:30 with complaints of contractions. She was admitted to labor and delivery made slow progress through labor Pitocin augmentation of labor was needed to enter the active phase of labor. Amniotomy was performed clear fluid was obtained, epidural was requested per patient for analgesia. Patient progressed to complete and had a normal spontaneous vaginal delivery of a viable male weight of 7 lbs. 13 oz. Apgars of 9 and 9 at one and 5 minutes respectively. Patient's course was complicated with hemorrhage. Approximately 1 hour after delivery patient was noted to be uncomfortable, painful with continued bleeding noted. Manual extraction was done for a large amount of clot 700 mL of blood was noted total. Afterwards patient felt well and bleeding was minimal. Patient's post course following manual extraction has been uneventful. This morning she is ambulating and voiding without difficulty she denies dizziness. She is breast-feeding without difficulty. She is tolerating a regular diet without nausea or vomiting. She does desire discharge home at 24 hours. Patient Condition at Discharge: Good Plan - Discharge Summary New Discharge Prescriptions: No Action Levothyroxine Sodium [Synthroid] 75 mcg PO QAM Ranitidine HCl [Zantac] 150 mg PO BID Discharge Medication List Levothyroxine Sodium [Synthroid] 75 mcg PO QAM 03/12/17 [History] Ranitidine HCl [Zantac] 150 mg PO BID 12/28/17 [History] Follow up Appointment(s)/Referral(s): Rabia Skinner DO [Primary Care Provider] - 4 Weeks Patient Instructions/Handouts: Vaginal Delivery (DC) Discharge Disposition: HOME SELF-CARE
[2018-01-06] MEDS: SENNOSIDES-DOCUSATE SODIUM 1 EACH TAB PO SCH (08:37)
[2018-01-06 15:31] VITALS: BP 120/68; PULSE 95; RESP 18; TEMP 97.9
--- NOTE | 2018-01-08 08:47 | P.MSEPDOC ---
Presenting Problems - Arrival Data Date of Arrival on Unit: 01/04/18 Time of Arrival on Unit: 22:34 Mode of Transport: Wheelchair - Complaint OB-Reason for Admission/Chief Complaint: Possible Onset of Labor Comment: contractions since 2129 Medical History - Information : 1 Para: 0 Term: 0 : 0 Abortions: Spontaneous or Elective: 0 Number of Living Children: 0 - Gestational Age Gestational Age by SHABBIR (wks/days): 39 Weeks and 2 Days Review of Systems - Review of Systems Constitutional: No problems Breast: No problems ENT: No problems Cardiovascular: No problems Respiratory: No problems Gastrointestinal: No problems Genitourinary: No problems Musculoskeletal: No problems Neurological: No problems Skin: No problems Vital Signs - Temperature Temperature: 97.9 F Temperature Source: Axillary - Pulse Right Brachial Pulse Rate: 95 Pulse Assessment Method: Automatic Cuff - Respirations Respiratory Rate: 18 Oxygen Delivery Method: Room Air - Blood Pressure Right Arm Blood Pressure: 120/68 Blood Pressure Mean: 85 Blood Pressure Source: Automatic Cuff Medical Screen Scoring (Pre) - Cervical Exam Dilation: 1-3 cm = 1 Effacement: More than 50% = 2 Membranes: Intact - Uterine Contractions Frequency: > or = 36 weeks =2 Duration: > 40 seconds = 2 Intensity: N/A - Maternal Vital Signs Maternal Temperature: N/A Maternal Blood Pressure: N/A Signs of Preeclampsia: N/A Maternal Respirations: N/A - Pain Assessment Pain Location and Character: Abdomen Pain Scale Used: Numeric (1 - 10) Pain Intensity: 6 Pain Management Goal: 2 Pain Description: *Acute, Tightness Pain Frequency: Intermittent Pain Duration: 1 Pain Duration Units: Hours Pain Behavior: None Exhibited Pain Aggravating Factors: Contractions - Assessment Baseline FHR: 140 Heart Rate - NICHD Category: Category I (Normal) = 0 NST: Reactive Position: N/A Station: N/A - Total Score Total Score (Pre): 7 - Level of Risk Level of Risk: Medium (6-9) Physician Notification (Pre) - Physician Notified Physician Notified Date: 01/04/18 Physician Notified Time: 22:38 Spoke With: Jeb New Order Received: Yes (admit for labor) - Notification Comment Comment: may have stadol and then epidural when making change or water breaks Disposition - Disposition OB Disposition: Admit, Triage Discharge Date: 01/06/18 Discharge Time: 18:50 I agree with the RN Medical Screening Exam: Yes Risk & Benefit of care provided described in d/c instruction: Yes Diagnosis: ENCOUNTER FOR FULL-TERM UNCOMPLICATED DELIVERY
== END 2018-01-06 18:50 | disposition home or self-care (01) | DRG 774 ==
LOC: FBPOP 22:26 → 4FBP 22:43
PROVIDERS: ADMIT Obstetrics & Gynecology; ATTEND Obstetrics & Gynecology Obstetrics
PROC: 0KQM0ZZ Repair Perineum Muscle, Open Approach (ICD-10-PCS; principal; 2018-01-05)
PROC: 10E0XZZ Delivery of Products of Conception, External Approach (ICD-10-PCS; 2018-01-05)
PROC: 10907ZC Drainage of Amniotic Fluid, Therapeutic from Products of Conception, Via Natural or Artificial Opening (ICD-10-PCS; 2018-01-05)
PROC: 0UC97ZZ Extirpation of Matter from Uterus, Via Natural or Artificial Opening (ICD-10-PCS; 2018-01-05)
PROC: 00HU33Z Insertion of Infusion Device into Spinal Canal, Percutaneous Approach (ICD-10-PCS; 2018-01-05)
PROC: 3E0R3NZ Introduction of Analgesics, Hypnotics, Sedatives into Spinal Canal, Percutaneous Approach (ICD-10-PCS; 2018-01-05)
DX: O70.1 Second degree perineal laceration during delivery (principal); O72.1 Other immediate postpartum hemorrhage; Z37.0 Single live birth; D62 Acute posthemorrhagic anemia; O99.284 Endocrine, nutritional and metabolic diseases complicating childbirth; E07.9 Disorder of thyroid, unspecified; G47.30 Sleep apnea, unspecified; O99.52 Diseases of the respiratory system complicating childbirth; Z3A.39 39 weeks gestation of pregnancy; Z79.890 Hormone replacement therapy; Z79.899 Other long term (current) drug therapy; Z99.89 Dependence on other enabling machines and devices; Z88.1 Allergy status to other antibiotic agents; Z88.8 Allergy status to other drugs, medicaments and biological substances
CPT/HCPCS: 85025; 88307

== ENCOUNTER 2018-01-21 11:02 | Emergency (ER) | payer BC ==
[2018-01-21] MEDS ORDERED: SODIUM CHLORIDE 0.9% 1,000 ML IV STA (11:21)
--- NOTE | 2018-01-21 11:25 | ED ---
General Adult HPI - General Chief complaint: Abdominal Pain Stated complaint: Abdominal pain Time Seen by Provider: 01/21/18 11:12 Source: patient, RN notes reviewed Mode of arrival: ambulatory Limitations: no limitations - History of Present Illness Initial comments: Patient's a 27-year-old female exposed post treatment today with a chief complaint of abdominal pain with episode of nausea. Patient states pain on the sides of the abdomen around the around to the front. Patient denies any other complaints. States had similar symptoms when she was in the hospital 2 weeks ago. Patient denies any other complaints. Currently Rates Pain 4/10. States Pain Seems to Come and Go. Patient denies any recent fever, chills, shortness of breath, chest pain, numbness or tingling, dysuria or hematuria, constipation or diarrhea, headaches or visual changes, or any other complaints. - Related Data Home Medications Medication Instructions Recorded Confirmed Levothyroxine Sodium [Synthroid] 75 mcg PO QAM 03/12/17 01/21/18 Dicloxacillin Sodium 500 mg PO Q6HR 01/21/18 01/21/18 Ferrous Sulfate [Feosol] 325 mg PO BID 01/21/18 01/21/18 Allergies Allergy/AdvReac Type Severity Reaction Status Date / Time dimethicone Allergy Rash/Hives Verified 01/21/18 11:36 [From A and D Emollient] glycerin Allergy Rash/Hives Verified 01/21/18 11:36 [From A and D Emollient] neomycin Allergy Rash/Hives Verified 01/21/18 11:36 stearyl alcohol Allergy Rash/Hives Verified 01/21/18 11:36 [From A and D Emollient] Review of Systems ROS Statement: Those systems with pertinent positive or pertinent negative responses have been documented in the HPI. ROS Other: All systems not noted in ROS Statement are negative. Past Medical History Past Medical History: Sleep Apnea/CPAP/BIPAP, Thyroid Disorder Additional Past Medical History / Comment(s): infertility, "Microscopic" colitis History of Any Multi-Drug Resistant Organisms: None Reported Past Surgical History: Orthopedic Surgery Additional Past Surgical History / Comment(s): bilateral bunyon surgery, plastic surgery from dog attack Past Anesthesia/Blood Transfusion Reactions: Previous Problems w/ Anesthesia Additional Past Anesthesia/Blood Transfusion Reaction / Comment(s): post anesthesia low heart rate agitation Past Psychological History: No Psychological Hx Reported Smoking Status: Never smoker Past Alcohol Use History: Rare Past Drug Use History: None Reported - Past Family History Mother Additional Family Medical History / Comment(s): morbid obesity, has had bariatric sx General Exam - General Exam Comments Initial Comments: General: The patient is awake and alert, in no distress, and does not appear acutely ill. Eye: Pupils are equal, round and reactive to light, extra-ocular movements are intact. No nystagmus. There is normal conjunctiva bilaterally. Ears, nose, mouth and throat: There are moist mucous membranes and no oral lesions. Neck: The neck is supple, there is no tenderness or JVD. Cardiovascular: There is a regular rate and rhythm. No murmur, rub or gallop is appreciated. Respiratory: Lungs are clear to auscultation, respirations are non-labored, breath sounds are equal. No wheezes, stridor, rales, or rhonchi. Gastrointestinal: Abdomen soft on palpation. No specific tenderness. No rebound tenderness. No CVA tenderness. Musculoskeletal: Normal ROM, no tenderness. Strength 5/5. Sensation intact. Neurological: A&O x 3. CN II-XII intact, There are no obvious motor or sensory deficits. Coordination appears grossly intact. Speech is normal. Skin: Skin is warm and dry and no rashes or lesions are noted. Psychiatric: Cooperative, appropriate mood & affect, normal judgment. Limitations: no limitations Course Vital Signs 01/21/18 11:07 Temperature 99.5 F Pulse Rate 82 Respiratory 20 Rate Blood Pressure 131/81 O2 Sat by Pulse 100 Oximetry Medical Decision Making - Medical Decision Making Case discussed in detail with attending physician Dr. Hutton. Patient reexamined at this time shows no signs of distress resting comfortably. Labs reviewed shows hemoglobin 9.3. This is improved from previous lab draw approximately 2 weeks ago. Patient urinalysis shows possible infection. Patient is currently on antibiotics. We will wait for culture. Patient's ultrasound shows no evidence of retained products or other acute abnormalities. Results were discussed with patient. - Lab Data Result diagrams: 01/21/18 11:30 01/21/18 11:30 Lab Results 01/21/18 01/21/18 01/21/18 Range/Units 11:30 11:30 11:30 WBC 6.4 (3.8-10.6) k/uL RBC 3.41 L (3.80-5.40) m/uL Hgb 9.3 L D (11.4-16.0) gm/dL Hct 29.2 L (34.0-46.0) % MCV 85.6 (80.0-100.0) fL MCH 27.4 (25.0-35.0) pg MCHC 32.0 (31.0-37.0) g/dL RDW 13.4 (11.5-15.5) % Plt Count 415 D (150-450) k/uL Neutrophils % 68 % Lymphocytes % 22 % Monocytes % 4 % Eosinophils % 3 % Basophils % 0 % Neutrophils # 4.3 (1.3-7.7) k/uL Lymphocytes # 1.4 (1.0-4.8) k/uL Monocytes # 0.3 (0-1.0) k/uL Eosinophils # 0.2 (0-0.7) k/uL Basophils # 0.0 (0-0.2) k/uL Hypochromasia Moderate PT (9.0-12.0) sec INR (<1.2) APTT (22.0-30.0) sec Sodium 144 (137-145) mmol/L Potassium 4.4 (3.5-5.1) mmol/L Chloride 107 (98-107) mmol/L Carbon Dioxide 26 (22-30) mmol/L Anion Gap 11 mmol/L BUN 13 (7-17) mg/dL Creatinine 0.81 (0.52-1.04) mg/dL Est GFR (CKD-EPI)AfAm >90 (>60 ml/min/1.73 sqM) Est GFR (CKD-EPI)NonAf >90 (>60 ml/min/1.73 sqM) Glucose 88 (74-99) mg/dL Calcium 8.6 (8.4-10.2) mg/dL Total Bilirubin 0.2 (0.2-1.3) mg/dL AST 18 (14-36) U/L ALT 32 (9-52) U/L Alkaline Phosphatase 90 (38-126) U/L Total Protein 6.1 L (6.3-8.2) g/dL Albumin 3.7 (3.5-5.0) g/dL Urine Color Yellow Urine Appearance Clear (Clear) Urine pH 6.0 (5.0-8.0) Ur Specific [place] 1.021 (1.001-1.035) Urine Protein Negative (Negative) Urine Glucose (UA) Negative (Negative) Urine Ketones Negative (Negative) Urine Blood Moderate H (Negative) Urine Nitrite Negative (Negative) Urine Bilirubin Negative (Negative) Urine Urobilinogen <2.0 (<2.0) mg/dL Ur Leukocyte Esterase Large H (Negative) Urine RBC 6 H (0-5) /hpf Urine WBC 32 H (0-5) /hpf Ur Squamous Epith Cells 10 H (0-4) /hpf Urine Bacteria Occasional H (None) /hpf Urine Mucus Rare H (None) /hpf 01/21/18 Range/Units 11:30 WBC (3.8-10.6) k/uL RBC (3.80-5.40) m/uL Hgb (11.4-16.0) gm/dL Hct (34.0-46.0) % MCV (80.0-100.0) fL MCH (25.0-35.0) pg MCHC (31.0-37.0) g/dL RDW (11.5-15.5) % Plt Count (150-450) k/uL Neutrophils % % Lymphocytes % % Monocytes % % Eosinophils % % Basophils % % Neutrophils # (1.3-7.7) k/uL Lymphocytes # (1.0-4.8) k/uL Monocytes # (0-1.0) k/uL Eosinophils # (0-0.7) k/uL Basophils # (0-0.2) k/uL Hypochromasia PT 11.4 (9.0-12.0) sec INR 1.2 H (<1.2) APTT 23.0 (22.0-30.0) sec Sodium (137-145) mmol/L Potassium (3.5-5.1) mmol/L Chloride (98-107) mmol/L Carbon Dioxide (22-30) mmol/L Anion Gap mmol/L BUN (7-17) mg/dL Creatinine (0.52-1.04) mg/dL Est GFR (CKD-EPI)AfAm (>60 ml/min/1.73 sqM) Est GFR (CKD-EPI)NonAf (>60 ml/min/1.73 sqM) Glucose (74-99) mg/dL Calcium (8.4-10.2) mg/dL Total Bilirubin (0.2-1.3) mg/dL AST (14-36) U/L ALT (9-52) U/L Alkaline Phosphatase (38-126) U/L Total Protein (6.3-8.2) g/dL Albumin (3.5-5.0) g/dL Urine Color Urine Appearance (Clear) Urine pH (5.0-8.0) Ur Specific [place] (1.001-1.035) Urine Protein (Negative) Urine Glucose (UA) (Negative) Urine Ketones (Negative) Urine Blood (Negative) Urine Nitrite (Negative) Urine Bilirubin (Negative) Urine Urobilinogen (<2.0) mg/dL Ur Leukocyte Esterase (Negative) Urine RBC (0-5) /hpf Urine WBC (0-5) /hpf Ur Squamous Epith Cells (0-4) /hpf Urine Bacteria (None) /hpf Urine Mucus (None) /hpf Disposition Clinical Impression: Abdominal pain Disposition: HOME SELF-CARE Condition: Good Instructions: Abdominal Pain (ED) Additional Instructions: Please follow-up with PROCESSING REP/family doctor in the next 2 days of symptoms have not improved. Please return to emergency room if the symptoms increase or worsen or for any other concerns. Is patient prescribed a controlled substance at d/c from ED?: No Referrals: Rafal Goetz MD [Primary Care Provider] - 1-2 days Time of Disposition: 13:50
[2018-01-21 11:43] LABS: Basophils % (A) 0 %; Eosinophils # (A) 0.2 k/uL (0-0.7); Eosinophils % (A) 3 %; HCT 29.2 % (34.0-46.0); Hypochromasia Moderate; Lymphocytes # (A) 1.4 k/uL (1.0-4.8); Lymphocytes % (A) 22 %; MCH 27.4 pg (25.0-35.0); MCV 85.6 fL (80.0-100.0); Mean Platelet Volume 6.2; Monocytes # (A) 0.3 k/uL (0-1.0); Monocytes % (A) 4 %; Neutrophils # (A) 4.3 k/uL (1.3-7.7); Neutrophils % (A) 68 %; RBC 3.41 m/uL (3.80-5.40); RDW 13.4 % (11.5-15.5); WBC 6.4 k/uL (3.8-10.6)
[2018-01-21 11:46] LABS: Appearance,Urine Clear (Clear); Bacteria,Urine Occasional /hpf; Bilirubin,Urine Negative (Negative); Blood,Urine Moderate (Negative); Color,Urine Yellow; Glucose,Urine (UA) Negative (Negative); Ketones,Urine Negative (Negative); Leukocyte Esterase,Urine Large (Negative); Mucus,Urine Rare /hpf; Nitrite,Urine Negative (Negative); Protein,Urine Negative (Negative); RBC,Urine 6 /hpf (0-5); Specific Gravity,Urine 1.021 (1.001-1.035); Squamous Epithelial Cell,Urine 10 /hpf (0-4); Urobilinogen,Urine <2.0 mg/dL (<2.0); WBC,Urine 32 /hpf (0-5)
[2018-01-21 11:49] LABS: HGB 9.3 gm/dL (11.4-16.0); Platelet Count 415 k/uL (150-450)
[2018-01-21 11:50] LABS: ALT 32 U/L (9-52); AST 18 U/L (14-36); Albumin 3.7 g/dL (3.5-5.0); Alkaline Phosphatase 90 U/L (38-126); Anion Gap 11 mmol/L; Blood Urea Nitrogen 13 mg/dL (7-17); Calcium 8.6 mg/dL (8.4-10.2); Carbon Dioxide 26 mmol/L (22-30); Chloride 107 mmol/L (98-107); Glucose 88 mg/dL (74-99); Potassium 4.4 mmol/L (3.5-5.1); Sodium 144 mmol/L (137-145); Total Bilirubin 0.2 mg/dL (0.2-1.3); Total Protein 6.1 g/dL (6.3-8.2)
[2018-01-21 11:58] LABS: INR 1.2 (<1.2); Prothrombin Time 11.4 sec (9.0-12.0)
--- NOTE | 2018-01-21 13:27 | US ---
EXAMINATION TYPE: US transvaginal DATE OF EXAM: 01/21/2018 COMPARISON: US 2017 CLINICAL HISTORY: pain. Post x 2 weeks, c/o MUQ pain TECHNIQUE: . Transvaginal sonographic images were medically necessary to better assess the followi ng anatomy: Date of LMP: Post bleeding ongoing EXAM MEASUREMENTS: Uterus: 10.7 x 7.6 x6.9 cm Endometrial Stripe: 1.0 cm Right Ovary: 2.1 x 1.9 x 1.6 cm Left Ovary: 2.7 x 1.9 x 1.9 cm 1. Uterus: Myometrium heterogeneous and hyper vascular. Cervical cyst = 1.4 x 1.3 x 1.2 cm 2. Endometrium: fluid filled with echogenic foci within. 3. Right Ovary: Obscured by overlying bowel gas, very poor visualization. Unable to see arterial [place] w. 4. Left Ovary: wnl, with follicles Spectral, color and waveform doppler imaging shows good arterial and venous flow within the ovaries ; 5. Bilateral Adnexa: wnl 6. Posterior cul-de-sac: wnl Suboptimal exam of right ovary. Patient unable to tolerate TV exam of right side. Technologist barron 1.3 cm nabothian cyst in cervix. There is fluid in the endometrial canal. Fluid is not completely anechoic suggesting possible blood product. Uterine myometrium is heterogeneous with vascularity not overtly suspicious in patient that was recently . No suspicious thickening or vascularity of the endometrium is identified. No free fluid is seen in pelvis. Left ovary is unremarkable. Right ovary towards end of study appears within normal limits. IMPRESSION: No ultrasound evidence for retained products of conception, no significant ultrasound fin ding is seen to account for patient's symptoms of pain and ongoing bleeding.
[2018-01-21 14:09] VITALS: BP 109/70; PULSE 62; RESP 18; TEMP 97.9
== END 2018-01-21 14:10 | disposition home or self-care (01) ==
LOC: EC 11:02
DX: R10.9 Unspecified abdominal pain (principal); R11.0 Nausea; G47.30 Sleep apnea, unspecified; E07.9 Disorder of thyroid, unspecified; Z99.89 Dependence on other enabling machines and devices; Z98.890 Other specified postprocedural states; Z87.19 Personal history of other diseases of the digestive system; Z79.899 Other long term (current) drug therapy; Z88.1 Allergy status to other antibiotic agents; Z88.8 Allergy status to other drugs, medicaments and biological substances
CPT/HCPCS: 36415; 76830; 80053; 81001; 85025; 85610; 85730; 87086; 93975; 99284

== ENCOUNTER → 2018-01-26 | Outpatient (CLI) | payer BC | LOC: LABWHC1 13:28 | PROVIDERS: ATTEND Internal Medicine Endocrinology, Diabetes & Metabolism | DX: E03.8 Other specified hypothyroidism (principal); E55.9 Vitamin D deficiency, unspecified | CPT/HCPCS: 36415; 82306; 84443 ==

== ENCOUNTER → 2018-04-03 | Outpatient (CLI) | payer BC | END | disposition home or self-care (01) | LOC: LABWHC1 08:19 | PROVIDERS: ATTEND Internal Medicine Endocrinology, Diabetes & Metabolism | DX: E03.9 Hypothyroidism, unspecified (principal) | CPT/HCPCS: 36415; 84443 ==

== ENCOUNTER → 2018-04-15 | Outpatient (CLI) | payer BC ==
[2018-04-15 18:16] LABS: T4, Free (Free Thyroxine) 1.15 ng/dL (0.78-2.19)
== END | disposition home or self-care (01) ==
LOC: LABWHC1 17:07
PROVIDERS: ATTEND Internal Medicine Endocrinology, Diabetes & Metabolism
DX: E55.9 Vitamin D deficiency, unspecified (principal); E03.8 Other specified hypothyroidism
CPT/HCPCS: 36415; 84439; 84443; 84481

== ENCOUNTER → 2018-05-19 | Outpatient (CLI) | payer BC ==
--- NOTE | 2018-05-19 08:07 | US ---
EXAMINATION TYPE: US abdomen complete DATE OF EXAM: 05/19/2018 COMPARISON: NONE CLINICAL HISTORY: R10.9 abd pain. Pt states lower ABD pain and cramping EXAM MEASUREMENTS: Liver Length: 16.5 cm Gallbladder Wall: 0.2 cm CBD: 0.3 cm Spleen: 12.4 cm Right Kidney: 10.2 x 4.3 x 5.2 cm Left Kidney: 10.9 x 3.9 x 4.9 cm Pancreas: Obscured by bowel gas Liver: Heterogeneous Gallbladder: wnl Evidence for sonographic Wooten's sign: No CBD: wnl Spleen: wnl Right Kidney: wnl Left Kidney: wnl Upper IVC: wnl Abd Aorta: wnl . IMPRESSION: 1. Liver is heterogeneous which is nonspecific and be seen with fatty infiltration, hepatitis or diff use hepatocellular disease.
--- NOTE | 2018-05-19 08:15 | US ---
EXAMINATION TYPE: US pelvic complete DATE OF EXAM: 05/19/2018 COMPARISON: 01/21/2018 CLINICAL HISTORY: R10.9 abd pain. Pelvic pain, cramping TECHNIQUE: Transabdominal (TA). Transabdominal sonographic images of the pelvis were acquired. Date of LMP: March 2017 EXAM MEASUREMENTS: Uterus: 8.0 x 3.3 x 4.0 cm Endometrial Stripe: 0.8 cm Right Ovary: 3.6 x 1.7 x 2.6 cm Left Ovary: 2.2 x 2.4 x 2.5 cm 1. Uterus: Anteverted Heterogeneous 2. Endometrium: Calcifications within endo 3. Right Ovary: wnl, follicles 4. Left Ovary: wnl, follicles 5. Bilateral Adnexa: wnl 6. Posterior cul-de-sac: wnl No abnormality visualized to account for pt's symptoms IMPRESSION: 1. Uterine myometrium is heterogeneous which is nonspecific. Additionally there are calcifications wi thin the endometrium. Correlate clinically. Findings were also noted on the previous exam.
== END | disposition home or self-care (01) ==
LOC: RADUSWWP 07:04
PROVIDERS: ATTEND Family Medicine
DX: K76.89 Other specified diseases of liver (principal)
CPT/HCPCS: 76700; 76856

== ENCOUNTER → 2018-06-05 | Outpatient (CLI) | payer BC ==
--- NOTE | 2018-06-05 18:50 | NM ---
EXAMINATION TYPE: NM hepatobiliary w EF DATE OF EXAM: 06/05/2018 COMPARISON: NONE HISTORY: TECHNIQUE: After the intravenous administration of 5 mCi Tc 99m Mebrofenin hepatobiliary scintigraphy is performed. Immediate images post injection. FINDINGS: There is satisfactory initial accumulation of tracer by the liver. The gallbladder is visualized wit hin 8 minutes. The small bowel activity is noted within 38 minutes. At one hour 8 ounces of oral en sure plus is given to mimic CCK and gallbladder ejection fraction is calculated at 80 %, in the george l range. Therefore there is no scintigraphic evidence of cystic or common bile duct obstruction to s uggest acute cholecystitis or gallbladder dyskinesia. There is no focal liver defect. IMPRESSION: Normal exam. Normal gallbladder ejection fraction.
== END | disposition home or self-care (01) ==
LOC: RADNMMAIN 14:46
PROVIDERS: ATTEND Family Medicine
DX: R10.9 Unspecified abdominal pain (principal)
CPT/HCPCS: 78226; A9537

== ENCOUNTER → 2018-09-28 | Outpatient (CLI) | payer BC | END | disposition home or self-care (01) | LOC: LABWHC1 09:26 | PROVIDERS: ATTEND Internal Medicine Endocrinology, Diabetes & Metabolism | DX: E03.8 Other specified hypothyroidism (principal); E55.9 Vitamin D deficiency, unspecified | CPT/HCPCS: 36415; 82306; 84443 ==

== ENCOUNTER → 2019-01-15 | Outpatient (CLI) | payer BC | LOC: LABWHC1 16:58 | PROVIDERS: ATTEND Internal Medicine Endocrinology, Diabetes & Metabolism | DX: E03.9 Hypothyroidism, unspecified (principal) | CPT/HCPCS: 36415; 84443 ==

== ENCOUNTER → 2019-01-26 | Outpatient (CLI) | payer BC | LOC: LABWHC1 11:20 | PROVIDERS: ATTEND Obstetrics & Gynecology Obstetrics | DX: O20.0 Threatened abortion (principal) | CPT/HCPCS: 36415; 84702 ==

== ENCOUNTER → 2019-01-28 | Outpatient (CLI) | payer BC | END | disposition home or self-care (01) | LOC: LABWHC1 08:34 | PROVIDERS: ATTEND Obstetrics & Gynecology Obstetrics | DX: O20.0 Threatened abortion (principal); Z3A.00 Weeks of gestation of pregnancy not specified | CPT/HCPCS: 36415; 84702 ==

== ENCOUNTER → 2019-04-28 | Outpatient (CLI) | payer BC | END | disposition home or self-care (01) | LOC: LABWHC1 08:59 | PROVIDERS: ATTEND Internal Medicine Endocrinology, Diabetes & Metabolism | DX: E03.8 Other specified hypothyroidism (principal) | CPT/HCPCS: 36415; 84443 ==

== ENCOUNTER → 2019-05-17 | Outpatient (CLI) | payer BC | END | disposition home or self-care (01) | LOC: LABWHC1 09:16 | PROVIDERS: ATTEND Internal Medicine Endocrinology, Diabetes & Metabolism | DX: E03.8 Other specified hypothyroidism (principal) | CPT/HCPCS: 36415; 84443 ==

== ENCOUNTER 2019-05-20 14:54 | Outpatient (CLI) | payer BC ==
[2019-05-20] MEDS ORDERED: ONDANSETRON 4 MG/2 ML VIAL IVP STA (15:56)
[2019-05-20] MEDS: LACTATED RINGERS 1,000 ML IV SCH ×2 (16:13→17:43)
[2019-05-20 16:17] LABS: Appearance,Urine Cloudy (Clear); Bacteria,Urine Rare /hpf; Bilirubin,Urine Negative (Negative); Blood,Urine Negative (Negative); Color,Urine Yellow; Glucose,Urine (UA) Negative (Negative); Ketones,Urine Negative (Negative); Leukocyte Esterase,Urine Large (Negative); Mucus,Urine Rare /hpf; Nitrite,Urine Negative (Negative); PH, Urine 6.5 (5.0-8.0); Protein,Urine Negative (Negative); RBC,Urine <1 /hpf (0-5); Specific Gravity,Urine 1.023 (1.001-1.035); Squamous Epithelial Cell,Urine 5 /hpf (0-4); Urobilinogen,Urine <2.0 mg/dL (<2.0); WBC,Urine 7 /hpf (0-5)
[2019-05-20 17:09] VITALS: BP 111/69; PULSE 62; RESP 16; TEMP 96.8
[2019-05-20] MEDS ORDERED: PROMETHAZINE SUPPOSITORY 25 MG SUPP RECTAL STA (17:19)
--- NOTE | 2019-06-27 10:18 | P.MSEPDOC ---
Presenting Problems - Arrival Data Date of Arrival on Unit: 05/20/19 Time of Arrival on Unit: 14:54 Mode of Transport: Ambulatory - Complaint OB-Reason for Admission/Chief Complaint: Hyperemesis Comment: nausea, vomitting, po zofran not working Medical History - Information : 2 Para: 1 Term: 1 : 0 Abortions: Spontaneous or Elective: 0 Number of Living Children: 1 - Gestational Age Gestational Age by SHABBIR (wks/days): 22 Weeks and 2 Days Review of Systems - Review of Systems Constitutional: No problems Breast: No problems ENT: No problems Cardiovascular: No problems Respiratory: No problems Gastrointestinal: No problems Genitourinary: No problems Musculoskeletal: No problems Neurological: No problems Skin: No problems Vital Signs - Temperature Temperature: 96.8 F Temperature Source: Oral - Pulse Right Brachial Pulse Rate: 62 Pulse Assessment Method: Automatic Cuff - Respirations Respiratory Rate: 16 Oxygen Delivery Method: Room Air - Blood Pressure Right Arm Blood Pressure: 111/69 Blood Pressure Mean: 83 Blood Pressure Source: Automatic Cuff Medical Screen Scoring (Pre) - Uterine Contractions Frequency: N/A Duration: N/A Intensity: N/A - Maternal Vital Signs Maternal Temperature: N/A Maternal Blood Pressure: N/A Signs of Preeclampsia: N/A Maternal Respirations: N/A - Maternal Trauma Maternal Trauma: N/A - Assessment - Baby A Baseline FHR: 142 Heart Rate - NICHD Category: Category I (Normal) = 0 - Total Score - Baby A Total Score - Baby A: 0 - Total Score - Baby B Total Score - Baby B: 0 - Total Score - Baby C Total Score - Baby C: 0 - Level of Risk - Baby A Level of Risk - Baby A: Low (0-5) - Level of Risk - Baby B Level of Risk - Baby B: Low (0-5) - Level of Risk - Baby C Level of Risk - Baby C: Low (0-5) Physician Notification (Pre) - Physician Notified Spoke With: ya New Order Received: Yes - Notification Comment Comment: discharge home Medical Screen Scoring (Post) - Cervical Exam Dilation: Exam Deferred Effacement: Exam Deferred Membranes: Intact - Uterine Contractions Frequency: N/A Duration: N/A Intensity: N/A - Maternal Vital Signs Maternal Temperature: N/A Maternal Blood Pressure: N/A Signs of Preeclampsia: N/A Maternal Respirations: N/A - Pain Assessment Pain Scale Used: Numeric (1 - 10) Pain Intensity: 0 - Maternal Trauma Maternal Trauma: N/A - Assessment - Baby A Heart Rate - NICHD Category: Category I (Normal) = 0 Position: N/A Station: N/A - Total Score Total Score - Baby A: 0 Total Score - Baby B: 0 Total Score - Baby C: 0 - Post Treatment Level of Risk Post Treatment Level of Risk - Baby A: Low (0-5) Post Treatment Level of Risk - Baby B: N/A Post Treatment Level of Risk - Baby C: N/A Physician Notification (Post) - Physician Notified Physician Notified Date: 05/20/19 Physician Notified Time: 18:25 Physician/Practitioner Notified:: yes Spoke With: ya New Order Received: Yes - Notification Comment Comment: disch home. 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 if ineffective to call office in am before noon for phen supp script. to eat lightly and small frqu meals and to advance slowly. to stop if n/v resumes until under control. discussed fluid intake with ptKofi pacheco Disposition - Disposition OB Disposition: Discharge to home Discharge Date: 05/20/19 Discharge Time: 18:30 I agree with the RN Medical Screening Exam: Yes Risk & Benefit of care provided described in d/c instruction: Yes Diagnosis: VOMITING OF , UNSPECIFIED
== END 2019-05-20 18:30 | disposition home or self-care (01) ==
LOC: FBPOP 14:54
PROVIDERS: ATTEND Obstetrics & Gynecology Obstetrics
DX: O21.9 Vomiting of pregnancy, unspecified (principal); Z3A.22 22 weeks gestation of pregnancy
CPT/HCPCS: 81001; J2405

== ENCOUNTER 2019-06-15 09:49 | Outpatient (CLI) | payer BC ==
[2019-06-15] MEDS ORDERED: ACETAMINOPHEN IV (For NPO) 1,000 MG in EMPTY BAG 1 BAG IVPB STA (10:24)
[2019-06-15] MEDS ORDERED: PROMETHAZINE SUPPOSITORY 25 MG SUPP RECTAL STA (10:26)
[2019-06-15] MEDS ORDERED: LACTATED RINGERS 1,000 ML IV SCH ×2 (10:30→11:15)
[2019-06-15 11:10] LABS: Basophils % (A) 0 %; Eosinophils % (A) 0 %; HCT 29.3 % (34.0-46.0); HGB 9.5 gm/dL (11.4-16.0); Hypochromasia Slight; Lymphocytes # (A) 0.8 k/uL (1.0-4.8); Lymphocytes % (A) 9 %; MCH 27.1 pg (25.0-35.0); MCHC 32.5 g/dL (31.0-37.0); MCV 83.4 fL (80.0-100.0); Mean Platelet Volume 5.9; Monocytes # (A) 0.3 k/uL (0-1.0); Monocytes % (A) 4 %; Neutrophils # (A) 8.2 k/uL (1.3-7.7); Neutrophils % (A) 86 %; Platelet Count 263 k/uL (150-450); RBC 3.51 m/uL (3.80-5.40); WBC 9.6 k/uL (3.8-10.6)
[2019-06-15 11:11] LABS: Appearance,Urine Clear (Clear); Bacteria,Urine Few /hpf; Bilirubin,Urine Negative (Negative); Blood,Urine Negative (Negative); Color,Urine Yellow; Glucose,Urine (UA) Trace (Negative); Ketones,Urine Negative (Negative); Leukocyte Esterase,Urine Moderate (Negative); Mucus,Urine Moderate /hpf; Nitrite,Urine Negative (Negative); PH, Urine 6.5 (5.0-8.0); Protein,Urine Trace (Negative); RBC,Urine <1 /hpf (0-5); Specific Gravity,Urine 1.029 (1.001-1.035); Squamous Epithelial Cell,Urine 6 /hpf (0-4); Urobilinogen,Urine <2.0 mg/dL (<2.0); WBC,Urine 6 /hpf (0-5)
[2019-06-15 11:37] VITALS: BP 114/69; PULSE 91; RESP 16; TEMP 99.5
--- NOTE | 2019-06-27 10:39 | P.MSEPDOC ---
Presenting Problems - Arrival Data Date of Arrival on Unit: 06/15/19 Time of Arrival on Unit: 09:49 Mode of Transport: Ambulatory - Complaint OB-Reason for Admission/Chief Complaint: Hyperemesis, Headache Medical History - Information : 2 Para: 1 Term: 1 : 0 Abortions: Spontaneous or Elective: 0 Number of Living Children: 1 - Gestational Age Gestational Age by SHABBIR (wks/days): 26 Weeks and 0 Days Review of Systems - Review of Systems Constitutional: Fever Breast: No problems ENT: No problems Cardiovascular: No problems Respiratory: No problems Genitourinary: No problems Musculoskeletal: No problems Neurological: No problems Skin: No problems Comment: N/V Vital Signs - Temperature Temperature: 99.5 F Temperature Source: Temporal Artery Scan - Pulse Pulse Oximetery Pulse Rate: 91 Pulse Assessment Method: Pulse Oximetry - Respirations Respiratory Rate: 16 Oxygen Delivery Method: Room Air O2 Sat by Pulse Oximetry: 97 - Blood Pressure Right Arm Blood Pressure: 114/69 Blood Pressure Mean: 84 Blood Pressure Source: Automatic Cuff Medical Screen Scoring (Pre) - Cervical Exam Dilation: Exam Deferred Effacement: Exam Deferred Membranes: Intact - Uterine Contractions Frequency: N/A Duration: N/A Intensity: N/A - Maternal Vital Signs Maternal Temperature: N/A Maternal Blood Pressure: N/A Signs of Preeclampsia: N/A Maternal Respirations: N/A - Maternal Trauma Maternal Trauma: N/A - Assessment - Baby A Baseline FHR: 180 Heart Rate - NICHD Category: Category II (Indeterminate) = 3 Position: N/A Station: N/A - Total Score - Baby A Total Score - Baby A: 3 - Total Score - Baby B Total Score - Baby B: 0 - Total Score - Baby C Total Score - Baby C: 0 - Level of Risk - Baby A Level of Risk - Baby A: Low (0-5) - Level of Risk - Baby B Level of Risk - Baby B: Low (0-5) - Level of Risk - Baby C Level of Risk - Baby C: Low (0-5) Physician Notification (Pre) - Physician Notified Physician Notified Date: 06/15/19 Physician Notified Time: 10:05 Physician/Practitioner Notifed:: Dr. Skinner Spoke With: Dr. Skinner New Order Received: Yes (1L LR, flu swab, ofirmev, phenergan suppository, 2g IV kefzol, CBC, urine) - Notification Comment Comment: Dr. Skinner on unit. Report given on maternal status, vital signs, BP 114/69,. Temp 99.5, FHR 190s, pt complains of a headache x2 days and vomitting last night. Orders. to start IV, send a urine and CBC, give 1L LR, and ofirmev. Physician Notification (Post) - Physician Notified Physician Notified Date: 06/15/19 Physician Notified Time: 12:40 Spoke With: Dr Skinner New Order Received: Yes - Notification Comment Comment: pt may go home and f/u in office on . pt needs to pick up driver her prescription on her way home Disposition - Disposition OB Disposition: Triage, Discharge to home, Written follow up instructions reviewed Discharge Date: 06/15/19 Discharge Time: 12:50 I agree with the RN Medical Screening Exam: Yes Risk & Benefit of care provided described in d/c instruction: Yes Diagnosis: VOMITING OF , UNSPECIFIED
== END 2019-06-15 12:50 | disposition home or self-care (01) ==
LOC: FBPOP 09:49
PROVIDERS: ATTEND Obstetrics & Gynecology Obstetrics
DX: O21.9 Vomiting of pregnancy, unspecified (principal); Z3A.26 26 weeks gestation of pregnancy
CPT/HCPCS: 99214; 96360; 96366; 96367; 85025; 81001; 87502; J0690; J0131; 96361

== ENCOUNTER 2019-06-17 09:35 | Observation (INO) | payer BC ==
[2019-06-17] MEDS ORDERED: ONDANSETRON 4 MG/2 ML VIAL IVP STA (09:54)
[2019-06-17] MEDS: LACTATED RINGERS 1,000 ML IV SCH ×3 (10:10→19:10)
[2019-06-17 10:46] LABS: Basophils % (A) 0 %; Eosinophils % (A) 0 %; HGB 8.6 gm/dL (11.4-16.0); Hypochromasia Slight; Lymphocytes # (A) 0.8 k/uL (1.0-4.8); Lymphocytes % (A) 9 %; MCH 27.5 pg (25.0-35.0); MCV 83.5 fL (80.0-100.0); Mean Platelet Volume 5.7; Monocytes # (A) 0.3 k/uL (0-1.0); Monocytes % (A) 3 %; Neutrophils # (A) 7.6 k/uL (1.3-7.7); Neutrophils % (A) 86 %; Platelet Count 213 k/uL (150-450); RBC 3.11 m/uL (3.80-5.40); RDW 15.1 % (11.5-15.5); WBC 8.8 k/uL (3.8-10.6)
[2019-06-17 10:57] LABS: Appearance,Urine Cloudy (Clear); Bacteria,Urine Rare /hpf; Bilirubin,Urine Negative (Negative); Blood,Urine Negative (Negative); Color,Urine Yellow; Glucose,Urine (UA) Negative (Negative); Ketones,Urine 4+ (Negative); Leukocyte Esterase,Urine Moderate (Negative); Mucus,Urine Many /hpf; Nitrite,Urine Negative (Negative); Protein,Urine 1+ (Negative); Specific Gravity,Urine 1.032 (1.001-1.035); Squamous Epithelial Cell,Urine 7 /hpf (0-4); WBC,Urine 5 /hpf (0-5)
[2019-06-17 11:01] LABS: ALT 9 U/L (9-52); AST 10 U/L (14-36); African American GFR (CKD) >90 (>60 ml/min/1.73 sqM); Albumin 2.8 g/dL (3.5-5.0); Alkaline Phosphatase 70 U/L (38-126); Anion Gap 8 mmol/L; Blood Urea Nitrogen 5 mg/dL (7-17); Calcium 7.7 mg/dL (8.4-10.2); Carbon Dioxide 21 mmol/L (22-30); Chloride 105 mmol/L (98-107); Glucose 80 mg/dL (74-99); Potassium 3.4 mmol/L (3.5-5.1); Sodium 134 mmol/L (137-145); Total Bilirubin 0.3 mg/dL (0.2-1.3); Total Protein 5.4 g/dL (6.3-8.2)
[2019-06-17] MEDS ORDERED: ONDANSETRON 4 MG/2 ML VIAL IVP PRN (12:00)
[2019-06-17] MEDS: FAMOTIDINE 20 MG/2 ML VIAL IV SCH (14:24)
--- NOTE | 2019-06-17 17:01 | P.HPOB ---
History of Present Illness H&P Date: 06/17/19 Chief Complaint: IUP 26 3/7 weeks, hyperemesis This is a 28 yo at 26 weeks that presents with c/o continued nausea and vomitting. she was seen in triage for hydration earlier in the week, and hydrated with IVF, and treated for UTI. she has been unable to keep down anything since last evening and noted a temp of 101 last PM as well. she did take tylenol and temp was normal this am at her routine visit. she is noting good FM, and denies CTX. she has been using phenergan suppositories for n/v, but they make her extremely sleepy. she states zofran stopped working for her nausea. she has a noted 3 # weight loss in the last week as well. UA done in triage today revealing 4+ ketones, labs with electrolyte abnormalities as well. she did ahve a negative flu swab this week in triage as well. Review of Systems Constitutional: Reports fatigue, Reports fever, Reports weight loss, Denies chills Ears, nose, mouth and throat: Denies headache Cardiovascular: Denies edema, Denies lightheadedness Respiratory: Denies congestion, Denies cough, Denies dyspnea Gastrointestinal: Reports nausea, Reports vomiting Genitourinary: Reports Past Medical History Past Medical History: Sleep Apnea/CPAP/BIPAP, Thyroid Disorder Additional Past Medical History / Comment(s): infertility, "Microscopic" colitis History of Any Multi-Drug Resistant Organisms: None Reported Past Surgical History: Orthopedic Surgery Additional Past Surgical History / Comment(s): bilateral bunyon surgery, plastic surgery from dog attack Past Anesthesia/Blood Transfusion Reactions: Previous Problems w/ Anesthesia Additional Past Anesthesia/Blood Transfusion Reaction / Comment(s): post anesthesia low heart rate agitation Smoking Status: Never smoker - Past Family History Mother Additional Family Medical History / Comment(s): morbid obesity, has had bariatric sx Medications and Allergies Home Medications Medication Instructions Recorded Confirmed Type Levothyroxine Sodium 88 mcg PO DAILY 05/20/19 06/17/19 History Ondansetron [Zofran] 4 mg PO Q12HR PRN 05/20/19 06/17/19 History Ranitidine HCl [Zantac] 150 mg PO DAILY PRN 05/20/19 06/17/19 History Sertraline HCl [Zoloft] 150 mg PO DAILY 05/20/19 06/17/19 History Cephalexin [Keflex] 500 mg PO Q12HR 06/17/19 06/17/19 History Promethazine Suppository 25 mg RECTAL Q12HR 06/17/19 06/17/19 History [Phenergan] Allergies Allergy/AdvReac Type Severity Reaction Status Date / Time dimethicone Allergy Rash/Hives Verified 06/17/19 09:53 [From A and D Emollient] glycerin Allergy Rash/Hives Verified 06/17/19 09:53 [From A and D Emollient] neomycin Allergy Rash/Hives Verified 06/17/19 09:53 stearyl alcohol Allergy Rash/Hives Verified 06/17/19 09:53 [From A and D Emollient] Exam Osteopathic Statement: *. No significant issues noted on an osteopathic structural exam other than those noted in the History and Physical/Consult. Vital Signs Pulse Resp BP Pulse Ox 06/17/19 14:45 96 18 106/65 99 Intake and Output 06/17/19 06/17/19 06/17/19 06:59 14:59 22:59 Other: Weight 93.44 kg in genereal this an ill appearing female in [facility], she has non labored breathing and heart has a RRR, abdomen is gravid and FHTS are reassuring for GA, no ctx are noted cervical exam is deferred at this time. Results Result Diagrams: 06/17/19 10:26 06/17/19 10:26 Abnormal Lab Results - Last 24 Hours (Table) 06/17/19 06/17/19 06/17/19 Range/Units 10:08 10:26 10:26 RBC 3.11 L (3.80-5.40) m/uL Hgb 8.6 L (11.4-16.0) gm/dL Hct 26.0 L (34.0-46.0) % Lymphocytes # 0.8 L (1.0-4.8) k/uL Sodium 134 L (137-145) mmol/L Potassium 3.4 L (3.5-5.1) mmol/L Carbon Dioxide 21 L (22-30) mmol/L BUN 5 L (7-17) mg/dL Creatinine 0.47 L (0.52-1.04) mg/dL Calcium 7.7 L (8.4-10.2) mg/dL AST 10 L (14-36) U/L Total Protein 5.4 L (6.3-8.2) g/dL Albumin 2.8 L (3.5-5.0) g/dL Urine Appearance Cloudy H (Clear) Urine Protein 1+ H (Negative) Urine Ketones 4+ H (Negative) Ur Leukocyte Esterase Moderate H (Negative) Ur Squamous Epith Cells 7 H (0-4) /hpf Urine Bacteria Rare H (None) /hpf Urine Mucus Many H (None) /hpf Assessment and Plan (1) 26 weeks gestation of Current Visit: Yes Status: Acute Code(s): Z3A.26 - 26 WEEKS GESTATION OF SNOMED Code(s): 39708190 (2) Anemia Current Visit: Yes Status: Acute Code(s): D64.9 - ANEMIA, UNSPECIFIED SNOMED Code(s): 592507716 (3) Hyperemesis Current Visit: Yes Status: Acute Code(s): R11.10 - VOMITING, UNSPECIFIED SNOMED Code(s): 692898584 Plan: patient is admitted for IVF, and monitoring she will be given her antibiotic IV (for her UTI) as she isnt able to tolerate them po due to vomitting will start with clear liquid diet as she can tolerate and advance diet slowly. plan is discussed with pt and all questions answered.
[2019-06-17 17:27] VITALS: BP 94/52; PULSE 64; RESP 16; TEMP 96.9; BMI 37.6
[2019-06-17] MEDS ORDERED: PROMETHAZINE SUPPOSITORY 25 MG SUPP RECTAL PRN (21:00)
[2019-06-18] MEDS: FAMOTIDINE 20 MG/2 ML VIAL IV SCH ×2 (00:02→09:24)
[2019-06-18] MEDS: LACTATED RINGERS 1,000 ML IV SCH ×5 (00:04→08:15)
[2019-06-18] MEDS: ACETAMINOPHEN TAB 500 MG TAB PO PRN ×3 (01:37→12:33)
[2019-06-18] MEDS ORDERED: LEVOTHYROXINE 88 MCG TAB PO SCH (06:30)
[2019-06-18] MEDS ORDERED: SERTRALINE 50 MG TAB PO SCH (09:00)
--- NOTE | 2019-06-18 09:44 | P.DS ---
Providers Date of admission: 06/17/19 12:03 Expected date of discharge: 06/18/19 Attending physician: Rabia Skinner Primary care physician: Stated None - Discharge Diagnosis(es) (1) 26 weeks gestation of Current Visit: Yes Status: Acute (2) Anemia Current Visit: Yes Status: Acute (3) Hyperemesis Current Visit: Yes Status: Acute Hospital Course: This 28-year-old 2 para 1001 at 26-3/7 weeks presented to labor and delivery from the office with complaints of continued nausea and vomiting. Patient has been seen in triage a few times for nausea and vomiting throughout this are ready. Patient was noted to have a 3 pound weight loss, and electively abnormalities on initial lab work. Patient has been taking Zofran as needed, and Phenergan suppositories at night for continued nausea. Patient in addition was diagnosed with a urinary tract infection earlier in the week and was taking Keflex but was unable to keep it down secondary to her excessive vomiting. Patient was admitted IV fluids were started along with IV antibiotics. Patient did well overnight no vomiting has been noted since she has been admitted. IV Zofran along with Pepcid and Phenergan suppositories were continued. Patient is trying to advance diet currently. Good movement is noted along with reassuring heart tones. She denies contractions or vaginal bleeding. We'll continue to monitor today should she tolerate a bland diet she can go home and follow-up in the office early next week. Patient Condition at Discharge: Good Plan - Discharge Summary New Discharge Prescriptions: No Action Ranitidine HCl [Zantac] 150 mg PO DAILY PRN PRN Reason: Indigestion Ondansetron [Zofran] 4 mg PO Q12HR PRN PRN Reason: Nausea Sertraline HCl [Zoloft] 150 mg PO DAILY Levothyroxine Sodium 88 mcg PO DAILY Cephalexin [Keflex] 500 mg PO Q12HR Promethazine Suppository [Phenergan] 25 mg RECTAL Q12HR Discharge Medication List Levothyroxine Sodium 88 mcg PO DAILY 05/20/19 [History] Ondansetron [Zofran] 4 mg PO Q12HR PRN 05/20/19 [History] Ranitidine HCl [Zantac] 150 mg PO DAILY PRN 05/20/19 [History] Sertraline HCl [Zoloft] 150 mg PO DAILY 05/20/19 [History] Cephalexin [Keflex] 500 mg PO Q12HR 06/17/19 [History] Promethazine Suppository [Phenergan] 25 mg RECTAL Q12HR 06/17/19 [History] Follow up Appointment(s)/Referral(s): Rabia Skinner DO [Doctor of Osteopathic Medicine] - (fri/ ) Patient Instructions/Handouts: Nausea and Vomiting in (ED), Nausea and Vomiting in (GEN) Activity/Diet/Wound Care/Special Instructions: Patient is to continue Zofran every 8 hours scheduled, along with Phenergan suppositories at at bedtime. Patient is encouraged to continue taking Pepcid daily in addition. Glands diet is discussed with patient and his rice applesauce toast and incorporation of bleeding protein such as growth chicken. Patient is to follow-up in the office Friday/Friday for close continued follow- up Discharge Disposition: HOME SELF-CARE
[2019-06-18 11:07] LABS: T4, Free (Free Thyroxine) 0.91 ng/dL (0.78-2.19)
[2019-06-18 20:22] LABS: Hemoglobin A1C 5.1 % (4.0-6.0)
== END 2019-06-18 15:10 | disposition home or self-care (01) ==
LOC: FBPOP 09:35 → 4FBP 12:03
PROVIDERS: ADMIT Obstetrics & Gynecology Obstetrics; ATTEND Obstetrics & Gynecology Obstetrics
DX: O21.2 Late vomiting of pregnancy (principal); Z3A.26 26 weeks gestation of pregnancy; O99.012 Anemia complicating pregnancy, second trimester; D64.9 Anemia, unspecified; O23.42 Unspecified infection of urinary tract in pregnancy, second trimester; O99.282 Endocrine, nutritional and metabolic diseases complicating pregnancy, second trimester; O09.02 Supervision of pregnancy with history of infertility, second trimester; E07.9 Disorder of thyroid, unspecified; O99.512 Diseases of the respiratory system complicating pregnancy, second trimester; G47.30 Sleep apnea, unspecified; Z79.890 Hormone replacement therapy; Z79.899 Other long term (current) drug therapy; Z88.1 Allergy status to other antibiotic agents; Z88.8 Allergy status to other drugs, medicaments and biological substances; Z91.048 Other nonmedicinal substance allergy status; Z87.19 Personal history of other diseases of the digestive system; Z99.89 Dependence on other enabling machines and devices
CPT/HCPCS: 96376; 99214; 96361; 96365; 96375; 84439; 80053; 84443; 85025; 81001; 83036; G0378 ×2; J2405 ×2; J0690 ×2; 96374

== ENCOUNTER 2019-07-07 16:48 | Outpatient (CLI) | payer BC ==
[2019-07-07] MEDS ORDERED: ONDANSETRON 4 MG/2 ML VIAL IM STA (17:13)
[2019-07-07] MEDS ORDERED: LACTATED RINGERS 1,000 ML IV SCH (17:15)
[2019-07-07 18:55] VITALS: BP 113/74; PULSE 70; RESP 16; TEMP 96.3
--- NOTE | 2019-07-15 14:27 | P.MSEPDOC ---
Presenting Problems - Arrival Data Date of Arrival on Unit: 07/07/19 Time of Arrival on Unit: 16:48 Mode of Transport: Ambulatory - Complaint OB-Reason for Admission/Chief Complaint: Hyperemesis Comment: Nausea and vomitting unrelieved by disha Medical History - Information : 2 Para: 1 Term: 1 : 0 Abortions: Spontaneous or Elective: 0 Number of Living Children: 1 - Gestational Age Gestational Age by SHABBIR (wks/days): 29 Weeks and 1 Days Review of Systems - Review of Systems Constitutional: No problems Breast: No problems ENT: No problems Cardiovascular: No problems Respiratory: No problems Gastrointestinal: No problems Genitourinary: No problems Musculoskeletal: No problems Neurological: No problems Skin: No problems Vital Signs - Temperature Temperature: 96.3 F Temperature Source: Temporal Artery Scan - Pulse Right Sitting Brachial Pulse Rate: 70 Pulse Assessment Method: Automatic Cuff - Respirations Respiratory Rate: 16 Oxygen Delivery Method: Room Air O2 Sat by Pulse Oximetry: 100 - Blood Pressure Right Arm Sitting Blood Pressure: 113/74 Blood Pressure Mean: 87 Blood Pressure Source: Automatic Cuff Medical Screen Scoring (Pre) - Cervical Exam Dilation: Exam Deferred Effacement: Exam Deferred Membranes: Intact - Uterine Contractions Frequency: N/A Duration: N/A Intensity: N/A - Maternal Vital Signs Maternal Temperature: N/A Maternal Blood Pressure: N/A Signs of Preeclampsia: N/A Maternal Respirations: N/A - Maternal Trauma Maternal Trauma: N/A - Assessment - Baby A Baseline FHR: 130 Heart Rate - NICHD Category: Category I (Normal) = 0 NST: Reactive Position: N/A Station: N/A - Total Score - Baby A Total Score - Baby A: 0 - Total Score - Baby B Total Score - Baby B: 0 - Total Score - Baby C Total Score - Baby C: 0 - Level of Risk - Baby A Level of Risk - Baby A: Low (0-5) - Level of Risk - Baby B Level of Risk - Baby B: Low (0-5) - Level of Risk - Baby C Level of Risk - Baby C: Low (0-5) Physician Notification (Pre) - Physician Notified Physician Notified Date: 07/07/19 Physician Notified Time: 18:45 Physician/Practitioner Notifed:: Susanne Spoke With: Susanne New Order Received: Yes - Notification Comment Comment: Spk c\Dr. Skinner, advsd pts nausea has improved, after 1L LR bolus and Zofran 4mg IVP, tolerating saltines and ice chips; Order to be d/c home, follow up as scheduled. Disposition - Disposition OB Disposition: Triage, Discharge to home, Written follow up instructions reviewed Discharge Date: 07/07/19 Discharge Time: 18:54 I agree with the RN Medical Screening Exam: Yes Risk & Benefit of care provided described in d/c instruction: Yes Diagnosis: VOMITING OF , UNSPECIFIED
== END 2019-07-07 18:55 | disposition home or self-care (01) ==
LOC: FBPOP 16:48
PROVIDERS: ATTEND Obstetrics & Gynecology Obstetrics
DX: O21.9 Vomiting of pregnancy, unspecified (principal); Z3A.29 29 weeks gestation of pregnancy
CPT/HCPCS: 59025; 99213; 96361; 96365; J2405; 96374; 99214

== ENCOUNTER 2019-07-14 22:41 | Outpatient (CLI) | payer BC ==
[2019-07-14] MEDS ORDERED: ONDANSETRON 4 MG/2 ML VIAL IVP STA (23:15)
[2019-07-14] MEDS: LACTATED RINGERS 1,000 ML IV SCH (23:25)
[2019-07-14 23:49] LABS: Appearance,Urine Cloudy (Clear); Bilirubin,Urine 1+ (Negative); Blood,Urine Negative (Negative); Color,Urine Yellow; Glucose,Urine (UA) Negative (Negative); Ketones,Urine Trace (Negative); Leukocyte Esterase,Urine Large (Negative); Mucus,Urine Few /hpf; Nitrite,Urine Negative (Negative); Protein,Urine 1+ (Negative); RBC,Urine 1 /hpf (0-5); Specific Gravity,Urine 1.028 (1.001-1.035); Squamous Epithelial Cell,Urine 5 /hpf (0-4); WBC,Urine 2 /hpf (0-5)
[2019-07-14 23:54] VITALS: BP 112/74; PULSE 89; RESP 18; TEMP 96.6
[2019-07-15] MEDS: LACTATED RINGERS 1,000 ML IV SCH (00:05)
--- NOTE | 2019-07-15 14:51 | P.MSEPDOC ---
Presenting Problems - Arrival Data Date of Arrival on Unit: 07/14/19 Time of Arrival on Unit: 22:41 Mode of Transport: Wheelchair - Complaint OB-Reason for Admission/Chief Complaint: Acute Nausea/Vomiting Comment: pt presents to triage for hyperemesis, not been able to keep anything down since last night, has a headache rating at 6/10 Medical History - Information : 2 Para: 1 Term: 1 : 0 Abortions: Spontaneous or Elective: 0 Number of Living Children: 1 - Gestational Age Gestational Age by SHABBIR (wks/days): 30 Weeks and 1 Days Review of Systems - Review of Systems Constitutional: No problems Breast: No problems ENT: No problems Cardiovascular: No problems Respiratory: No problems Gastrointestinal: Constipation Genitourinary: No problems Musculoskeletal: No problems Neurological: No problems Skin: No problems Comment: constipation due to zofran per pt Vital Signs - Temperature Temperature: 96.6 F Temperature Source: Temporal Artery Scan - Pulse Right Brachial Pulse Rate: 89 Pulse Assessment Method: Automatic Cuff - Respirations Respiratory Rate: 18 Oxygen Delivery Method: Room Air - Blood Pressure Right Arm Blood Pressure: 112/74 Blood Pressure Mean: 86 Blood Pressure Source: Automatic Cuff Medical Screen Scoring (Pre) - Cervical Exam Dilation: Exam Deferred Effacement: Exam Deferred Membranes: Intact - Uterine Contractions Frequency: N/A Duration: N/A Intensity: N/A - Maternal Vital Signs Maternal Temperature: N/A Signs of Preeclampsia: N/A Maternal Respirations: N/A - Maternal Trauma Maternal Trauma: N/A - Assessment - Baby A Baseline FHR: 145 Heart Rate - NICHD Category: Category I (Normal) = 0 NST: Reactive Position: N/A Station: N/A - Total Score - Baby A Total Score - Baby A: 0 - Total Score - Baby B Total Score - Baby B: 0 - Total Score - Baby C Total Score - Baby C: 0 - Level of Risk - Baby A Level of Risk - Baby A: Low (0-5) - Level of Risk - Baby B Level of Risk - Baby B: Low (0-5) - Level of Risk - Baby C Level of Risk - Baby C: Low (0-5) Physician Notification (Pre) - Physician Notified Physician Notified Date: 07/14/19 Physician Notified Time: 23:12 New Order Received: Yes - Notification Comment Comment: give IVF bolus and obtain ua, may have zofran iv Medical Screen Scoring (Post) - Uterine Contractions Frequency: N/A - Maternal Vital Signs Maternal Temperature: N/A Maternal Blood Pressure: N/A Signs of Preeclampsia: N/A Maternal Respirations: N/A - Maternal Trauma Maternal Trauma: N/A - Total Score Total Score - Baby A: 0 Total Score - Baby B: 0 Total Score - Baby C: 0 - Post Treatment Level of Risk Post Treatment Level of Risk - Baby A: Low (0-5) Post Treatment Level of Risk - Baby B: Low (0-5) Post Treatment Level of Risk - Baby C: Low (0-5) Physician Notification (Post) - Physician Notified Physician Notified Date: 07/15/19 Physician Notified Time: 00:32 Physician/Practitioner Notified:: ya Spoke With: ya New Order Received: Yes - Notification Comment Comment: pt treated with LR fluid bolus, and IV zofran, eating ice chips and soda crackers, ua was sent Disposition - Disposition OB Disposition: Discharge to home, Written follow up instructions reviewed Discharge Date: 07/15/19 Discharge Time: 00:43 I agree with the RN Medical Screening Exam: Yes Risk & Benefit of care provided described in d/c instruction: Yes Diagnosis: VOMITING OF , UNSPECIFIED
== END 2019-07-15 00:43 | disposition home or self-care (01) ==
LOC: FBPOP 22:41
PROVIDERS: ATTEND Obstetrics & Gynecology Obstetrics
DX: O21.9 Vomiting of pregnancy, unspecified (principal); Z3A.30 30 weeks gestation of pregnancy
CPT/HCPCS: 59025; 99214; 96361; 96374; 84112; 81001; J2405

== ENCOUNTER 2019-07-23 10:47 | Outpatient (CLI) | payer BC ==
[2019-07-23] MEDS ORDERED: ONDANSETRON 4 MG/2 ML VIAL IVP PRN (10:59)
[2019-07-23] MEDS ORDERED: LACTATED RINGERS 1,000 ML IV SCH (11:00)
[2019-07-23 11:56] VITALS: BP 112/73; PULSE 93; RESP 18; TEMP 96.6
--- NOTE | 2019-09-09 10:17 | P.MSEPDOC ---
Presenting Problems - Arrival Data Date of Arrival on Unit: 07/23/19 Time of Arrival on Unit: 10:47 Mode of Transport: Ambulatory - Complaint OB-Reason for Admission/Chief Complaint: Hyperemesis Comment: n\v and TEJADA. Medical History - Information : 2 Para: 1 Term: 1 : 0 Abortions: Spontaneous or Elective: 0 Number of Living Children: 1 - Gestational Age Gestational Age by SHABBIR (wks/days): 31 Weeks and 3 Days Review of Systems - Review of Systems Constitutional: No problems Breast: No problems ENT: No problems Cardiovascular: No problems Respiratory: No problems Gastrointestinal: No problems Genitourinary: No problems Musculoskeletal: No problems Neurological: No problems Skin: No problems Vital Signs - Temperature Temperature: 96.6 F Temperature Source: Temporal Artery Scan - Pulse Right Pulse Rate: 93 Pulse Assessment Method: Pulse Oximetry - Respirations Respiratory Rate: 18 Oxygen Delivery Method: Room Air O2 Sat by Pulse Oximetry: 96 - Blood Pressure Right Arm Blood Pressure: 112/73 Blood Pressure Mean: 86 Blood Pressure Source: Automatic Cuff Medical Screen Scoring (Pre) - Cervical Exam Dilation: Exam Deferred Effacement: Exam Deferred Membranes: Intact - Uterine Contractions Frequency: N/A Duration: N/A Intensity: N/A - Maternal Vital Signs Maternal Temperature: N/A Signs of Preeclampsia: Headache = 1, Nausea/Vomiting = 1 Maternal Respirations: N/A - Maternal Trauma Maternal Trauma: N/A - Assessment - Baby A Baseline FHR: 135 Heart Rate - NICHD Category: Category I (Normal) = 0 NST: Reactive Position: N/A Station: N/A - Total Score - Baby A Total Score - Baby A: 2 - Total Score - Baby B Total Score - Baby B: 2 - Total Score - Baby C Total Score - Baby C: 2 - Level of Risk - Baby A Level of Risk - Baby A: Low (0-5) - Level of Risk - Baby B Level of Risk - Baby B: Low (0-5) - Level of Risk - Baby C Level of Risk - Baby C: Low (0-5) Physician Notification (Pre) - Physician Notified Physician Notified Date: 07/23/19 Physician Notified Time: 11:07 New Order Received: Yes (IV hydration/zofran.) Medical Screen Scoring (Post) - Uterine Contractions Frequency: N/A - Maternal Vital Signs Maternal Temperature: N/A Maternal Respirations: N/A - Pain Assessment Pain Scale Used: Numeric (1 - 10) Pain Intensity: 0 Pain Management Goal: 0 - Maternal Trauma Maternal Trauma: N/A - Assessment - Baby A Heart Rate: 120 Heart Rate - NICHD Category: Category I (Normal) = 0 - Total Score Total Score - Baby A: 0 Total Score - Baby B: 0 Total Score - Baby C: 0 - Post Treatment Level of Risk Post Treatment Level of Risk - Baby A: Low (0-5) Post Treatment Level of Risk - Baby B: Low (0-5) Post Treatment Level of Risk - Baby C: Low (0-5) Disposition - Disposition OB Disposition: Discharge to home, Written follow up instructions reviewed Discharge Date: 07/23/19 Discharge Time: 13:29 I agree with the RN Medical Screening Exam: Yes Risk & Benefit of care provided described in d/c instruction: Yes Diagnosis: VOMITING OF , UNSPECIFIED
== END 2019-07-23 13:30 | disposition home or self-care (01) ==
LOC: FBPOP 10:47
PROVIDERS: ATTEND Obstetrics & Gynecology Obstetrics
DX: O21.2 Late vomiting of pregnancy (principal); Z3A.31 31 weeks gestation of pregnancy
CPT/HCPCS: 59025; 99214; 96360; 96361; 96375; J2405

== ENCOUNTER 2019-07-30 13:17 | Observation (INO) | payer BC ==
[2019-07-30 13:54] LABS: Appearance,Urine Cloudy (Clear); Bacteria,Urine Occasional /hpf; Bilirubin,Urine 1+ (Negative); Blood,Urine Negative (Negative); Color,Urine Yellow; Glucose,Urine (UA) Negative (Negative); Ketones,Urine 1+ (Negative); Leukocyte Esterase,Urine Large (Negative); Mucus,Urine Many /hpf; Nitrite,Urine Negative (Negative); Protein,Urine 1+ (Negative); RBC,Urine 3 /hpf (0-5); Specific Gravity,Urine 1.027 (1.001-1.035); Squamous Epithelial Cell,Urine 19 /hpf (0-4); WBC,Urine 74 /hpf (0-5)
[2019-07-30] MEDS ORDERED: ONDANSETRON 4 MG/2 ML VIAL IVP STA (14:03)
[2019-07-30] MEDS ORDERED: DEXTROSE 5%-LACTATED RINGERS 1,000 ML IV ONE (14:15)
[2019-07-30] MEDS: BETAMET ACET-BETAMETH SOD PHOS 6 MG/ML VIAL IM SCH (15:05)
[2019-07-30] MEDS ORDERED: LACTATED RINGERS 1,000 ML IV ONE (15:45)
--- NOTE | 2019-07-30 16:06 | P.HPOB ---
History of Present Illness H&P Date: 07/30/19 Chief Complaint: Nausea and vomiting This is a 28-year-old white female 2 para 1001 left menstrual period in November, 09/21/2019 confirmed by 19 week ultrasound who presents at 32-3/7 weeks' gestation. Patient states this is her ninth or 10th admission with the current for repetitive emesis. She says she has had nothing solid to eat since 5 PM yesterday. She is making urine and tears. Fetus is been very active. She denies vaginal bleeding or fluid leakage. She has occasional Tulio Norman contractions but nothing of significance per her report. ALLERGIES include a and D Ointment which reports a rash. Past medical history significant for hypothyroidism. Social history patient is , she has never been a smoker, she denies alcohol the pain or any drug use. Her 's name is Aníbal and he is at the bedside. She works for [employer] Past surgical history bunions removed of the feet many years ago. On exam this is a very pleasant white female who is 5 foot 2 inches, 204 pounds, blood pressure 112/74, pulse 72, respirations 16, temp 96.2.'s daily, the general physical exam is within normal limits. There is no peripheral edema. Abdomen is soft and nontender. No CVA tenderness. heart rate in the 110 to 120s baseline with overall excellent variability and prolonged accelerations into the 150 to 160s range. However upon monitoring, there are 2 or 3 episodes of heart rate decelerating to the 90s range. For this reason, biophysical profile is performed and score is 8 out of 8. Again, fetus is very active to auscultation and palpation as well as to maternal perception. Current medications Zoloft 150 mg daily, Zofran 4 mg twice daily, and Phenergan suppositories at bedtime. Impression: 32-3/7 weeks intrauterine with potentially concerning heart rate monitoring. Excellent recovery and biophysical profile score of 8 out of 8 is documented with reactive NST at this time. 16 pound weight loss with the due to repetitive episodes of emesis and dehydration. Plan: Patient will be admitted at this time. Betamethasone injection has been given. We will repeat betamethasone tomorrow and do more prolonged monitoring tonight. Advanced diet as tolerated. Residential Appraiser aware of patient's status. Likely discharge home tomorrow. Patient and her aware of and in agreement with plan. Review of Systems Constitutional: Reports as per HPI Past Medical History Past Medical History: Sleep Apnea/CPAP/BIPAP, Thyroid Disorder Additional Past Medical History / Comment(s): infertility, "Microscopic" colitis History of Any Multi-Drug Resistant Organisms: None Reported Past Surgical History: Orthopedic Surgery Additional Past Surgical History / Comment(s): bilateral bunyon surgery, plastic surgery from dog attack Past Anesthesia/Blood Transfusion Reactions: Previous Problems w/ Anesthesia Additional Past Anesthesia/Blood Transfusion Reaction / Comment(s): post anesthesia low heart rate agitation Smoking Status: Never smoker - Past Family History Mother Additional Family Medical History / Comment(s): morbid obesity, has had bariatric sx Medications and Allergies Home Medications Medication Instructions Recorded Confirmed Type Levothyroxine Sodium 75 mcg PO DAILY 05/20/19 07/30/19 History Ondansetron [Zofran] 4 mg PO Q12HR PRN 05/20/19 07/30/19 History Sertraline HCl [Zoloft] 150 mg PO DAILY 05/20/19 07/30/19 History Promethazine Suppository 25 mg RECTAL Q12HR 06/17/19 07/30/19 History [Phenergan] Famotidine [Pepcid] 40 mg PO HS 07/07/19 07/30/19 History Allergies Allergy/AdvReac Type Severity Reaction Status Date / Time dimethicone Allergy Rash/Hives Verified 07/30/19 13:26 [From A and D Emollient] glycerin Allergy Rash/Hives Verified 07/30/19 13:26 [From A and D Emollient] neomycin Allergy Rash/Hives Verified 07/30/19 13:26 stearyl alcohol Allergy Rash/Hives Verified 07/30/19 13:26 [From A and D Emollient] Exam Intake and Output 07/30/19 07/30/19 07/30/19 06:59 14:59 22:59 Other: Weight 92.533 kg See dictation under HPI please Results Abnormal Lab Results - Last 24 Hours (Table) 07/30/19 Range/Units 13:29 Urine Appearance Cloudy H (Clear) Urine Protein 1+ H (Negative) Urine Ketones 1+ H (Negative) Urine Bilirubin 1+ H (Negative) Ur Leukocyte Esterase Large H (Negative) Urine WBC 74 H (0-5) /hpf Ur Squamous Epith Cells 19 H (0-4) /hpf Urine Bacteria Occasional H (None) /hpf Urine Mucus Many H (None) /hpf Assessment and Plan Assessment: 32-3/7 weeks intrauterine , here for emesis and dehydration. heart rate monitoring potentially with area of concern. Biophysical profile 10 out of 10. Plan: Admit patient 23 hour stay. Betamethasone given now and will repeat tomorrow. Continued monitoring through the evening. Likely discharge home tomorrow. Time with Patient: Greater than 30
[2019-07-30 16:18] VITALS: PULSE 71; RESP 16; TEMP 97.3; BMI 37.3
[2019-07-30] MEDS ORDERED: ONDANSETRON 4 MG/2 ML VIAL IVP PRN (16:25)
--- NOTE | 2019-07-30 16:25 | US ---
EXAMINATION TYPE: US OB BPP wo non-stress DATE OF EXAM: 07/30/2019 COMPARISON: NONE CLINICAL HISTORY: non reassuring heart tones. EXAM PERFORMED: Transabdominal (TA) BPP PARAMETERS: PRESENTATION: Vertex HEART RATE: 144 bpm RHYTHM: Normal MARGARET: 11.6 DIAPHRAGM IMAGED: Yes BPP SCORIN. Breathin (1 episode of breathing of 30 second duration in 30 minutes of scanning time) 2. Movement: 2 (at least 3 discrete body movements in 30 minutes) 3. Tone: 2 (1 episode of active flexion/extension of limb) 4. MARGARET: 2 (MARGARET index > 5cm) IMPRESSION: Normal exam. TOTAL SCORE: 8 / 8
[2019-07-30 17:28] VITALS: BP 112/74
[2019-07-30] MEDS ORDERED: PROMETHAZINE SUPPOSITORY 12.5 MG SUPP RECTAL SCH (21:00)
[2019-07-31] MEDS: BETAMET ACET-BETAMETH SOD PHOS 6 MG/ML VIAL IM SCH (10:46)
--- NOTE | 2019-07-31 11:04 | P.DS ---
Providers Date of admission: 07/30/19 15:55 Expected date of discharge: 07/31/19 Attending physician: Zara Russ Primary care physician: Rabia Skinner [facility] Course: This is a 28-year-old white female 2 para 1001 EDC 09/21/2019 32-3/7 weeks' gestation. Patient presented yesterday with a complaint of nausea and vomiting. Fetus is been active throughout the . She denied vaginal bleeding or fluid leakage. Upon IV hydration and monitoring, there were several episodes of heart rate that decelerated into the 90s. Overall variability was excellent. Biophysical profile was performed and received 8 out of 8 score. Betamethasone was given prophylactically. Patient was monitored through the night for continuous monitoring. Please see dictated history and physical for details. Patient did very well through the night. heart rate was reassuring throughout. She received her second dose of betamethasone this morning. Fetus is been active. She feels improved, no further nausea or vomiting. She is judged to be in very good condition for discharge home. She will follow-up with Dr. Skinner in the office this week. She will continue to monitor activity. Dietary recommendations are reviewed. Return with any decreased movement, persistent nausea vomiting, or any difficulties or concerns. Patient Condition at Discharge: Good Plan - Discharge Summary Discharge Rx Participant: No New Discharge Prescriptions: No Action Ondansetron [Zofran] 4 mg PO Q12HR PRN PRN Reason: Nausea Sertraline HCl [Zoloft] 150 mg PO DAILY Levothyroxine Sodium 75 mcg PO DAILY Promethazine Suppository [Phenergan] 25 mg RECTAL Q12HR Famotidine [Pepcid] 40 mg PO HS Discharge Medication List Levothyroxine Sodium 75 mcg PO DAILY 05/20/19 [History] Ondansetron [Zofran] 4 mg PO Q12HR PRN 05/20/19 [History] Sertraline HCl [Zoloft] 150 mg PO DAILY 05/20/19 [History] Promethazine Suppository [Phenergan] 25 mg RECTAL Q12HR 06/17/19 [History] Famotidine [Pepcid] 40 mg PO HS 07/07/19 [History] Follow up Appointment(s)/Referral(s): Rabia Skinner DO [Primary Care Provider] - 2 Weeks Discharge Disposition: HOME SELF-CARE
== END 2019-07-31 11:01 | disposition home or self-care (01) ==
LOC: FBPOP 13:17 → 4FBP 15:55
PROVIDERS: ADMIT Obstetrics & Gynecology; ATTEND Obstetrics & Gynecology
DX: O21.2 Late vomiting of pregnancy (principal); Z3A.32 32 weeks gestation of pregnancy; E86.0 Dehydration; O36.8330 Maternal care for abnormalities of the fetal heart rate or rhythm, third trimester, not applicable or unspecified; O47.03 False labor before 37 completed weeks of gestation, third trimester; R63.4 Abnormal weight loss; G47.30 Sleep apnea, unspecified; E03.9 Hypothyroidism, unspecified; Z99.89 Dependence on other enabling machines and devices; Z79.890 Hormone replacement therapy; Z79.899 Other long term (current) drug therapy; Z88.8 Allergy status to other drugs, medicaments and biological substances; Z91.09 Other allergy status, other than to drugs and biological substances
CPT/HCPCS: 59025; 96376; 99214; 96361; 96372 ×2; 96374; 81001; 76819; G0378 ×2; J0702 ×2; J2405 ×2; 96360; 96375

== ENCOUNTER 2019-08-04 06:39 | Outpatient (CLI) | payer BC ==
[2019-08-04] MEDS ORDERED: ONDANSETRON 4 MG/2 ML VIAL IVP STA (07:20)
[2019-08-04] MEDS ORDERED: FAMOTIDINE 20 MG/2 ML VIAL IV STA (07:21)
[2019-08-04 07:22] LABS: Glucose,Whole Blood 100 mg/dL (75-99)
[2019-08-04] MEDS ORDERED: LACTATED RINGERS 1,000 ML IV ONE (07:30)
[2019-08-04 08:33] VITALS: BP 113/77; PULSE 73; RESP 16; TEMP 96.9
== END 2019-08-04 08:55 | disposition home or self-care (01) ==
LOC: FBPOP 06:39
PROVIDERS: ATTEND Obstetrics & Gynecology Obstetrics
DX: O21.2 Late vomiting of pregnancy (principal); Z3A.33 33 weeks gestation of pregnancy
CPT/HCPCS: 59025; 99214; 96360; 96375; J2405; 96361

== ENCOUNTER 2019-08-06 09:21 | Outpatient (CLI) | payer BC ==
[2019-08-06 09:38] VITALS: BP 109/67; PULSE 88; RESP 17; TEMP 97.4
== END 2019-08-06 10:05 | disposition home or self-care (01) ==
LOC: FBPOP 09:21
PROVIDERS: ATTEND Obstetrics & Gynecology
DX: O21.2 Late vomiting of pregnancy (principal); Z3A.33 33 weeks gestation of pregnancy
CPT/HCPCS: 59025

== ENCOUNTER 2019-08-13 14:56 | Outpatient (CLI) | payer BC ==
[2019-08-13] MEDS ORDERED: ONDANSETRON 4 MG/2 ML VIAL IVP STA (15:11)
[2019-08-13] MEDS ORDERED: LACTATED RINGERS 1,000 ML IV SCH (15:15)
[2019-08-13 17:07] VITALS: BP 109/70; PULSE 67; RESP 16; TEMP 96.6
--- NOTE | 2019-09-09 10:20 | P.MSEPDOC ---
Presenting Problems - Arrival Data Date of Arrival on Unit: 08/13/19 Time of Arrival on Unit: 14:57 Mode of Transport: Ambulatory - Complaint OB-Reason for Admission/Chief Complaint: Hyperemesis Medical History - Information : 2 Para: 1 Term: 1 : 0 Abortions: Spontaneous or Elective: 0 Number of Living Children: 1 - Gestational Age Gestational Age by SHABBIR (wks/days): 34 Weeks and 3 Days Review of Systems - Review of Systems Constitutional: Recent weight loss, Fatigue Breast: No problems ENT: No problems Cardiovascular: No problems Respiratory: No problems Gastrointestinal: No problems Genitourinary: No problems Musculoskeletal: No problems Neurological: No problems Skin: No problems Vital Signs - Temperature Temperature: 96.6 F Temperature Source: Temporal Artery Scan - Pulse Right Brachial Pulse Rate: 67 Pulse Assessment Method: Automatic Cuff - Respirations Respiratory Rate: 16 Oxygen Delivery Method: Room Air O2 Sat by Pulse Oximetry: 99 - Blood Pressure Right Arm Sitting Blood Pressure: 109/70 Blood Pressure Mean: 83 Blood Pressure Source: Automatic Cuff Medical Screen Scoring (Pre) - Cervical Exam Dilation: Exam Deferred Effacement: Exam Deferred Membranes: Intact - Uterine Contractions Frequency: > 5 minutes apart = 1 Duration: N/A Intensity: N/A - Maternal Vital Signs Maternal Temperature: N/A Maternal Blood Pressure: N/A Signs of Preeclampsia: N/A Maternal Respirations: N/A - Maternal Trauma Maternal Trauma: N/A - Assessment - Baby A Baseline FHR: 125 Heart Rate - NICHD Category: Category I (Normal) = 0 NST: Reactive Position: N/A Station: N/A - Total Score - Baby A Total Score - Baby A: 1 - Total Score - Baby B Total Score - Baby B: 1 - Total Score - Baby C Total Score - Baby C: 1 - Level of Risk - Baby A Level of Risk - Baby A: Low (0-5) - Level of Risk - Baby B Level of Risk - Baby B: Low (0-5) - Level of Risk - Baby C Level of Risk - Baby C: Low (0-5) Physician Notification (Pre) - Physician Notified Physician Notified Date: 08/13/19 Physician Notified Time: 16:21 New Order Received: Yes - Notification Comment Comment: pt fluid bolus complete, pt. feeling much better, wants to go eat. Reported fhts. reactive Disposition - Disposition OB Disposition: Triage, Discharge to home, Written follow up instructions reviewed Discharge Date: 08/13/19 Discharge Time: 16:26 I agree with the RN Medical Screening Exam: Yes Risk & Benefit of care provided described in d/c instruction: Yes Diagnosis: VOMITING OF , UNSPECIFIED
== END 2019-08-13 16:30 | disposition home or self-care (01) ==
LOC: FBPOP 14:56
PROVIDERS: ATTEND Obstetrics & Gynecology Obstetrics
DX: O21.9 Vomiting of pregnancy, unspecified (principal); Z3A.34 34 weeks gestation of pregnancy
CPT/HCPCS: 59025; 99214; 96360; J2405; 96375

== ENCOUNTER 2019-08-22 09:56 | Outpatient (CLI) | payer BC ==
[2019-08-22] MEDS ORDERED: ONDANSETRON 4 MG/2 ML VIAL IVP STA (10:22)
[2019-08-22 10:33] LABS: Appearance,Urine Turbid (Clear); Bacteria,Urine Few /hpf; Bilirubin,Urine Negative (Negative); Blood,Urine Negative (Negative); Color,Urine Yellow; Glucose,Urine (UA) Negative (Negative); Ketones,Urine 2+ (Negative); Leukocyte Esterase,Urine Large (Negative); Mucus,Urine Many /hpf; Nitrite,Urine Negative (Negative); Protein,Urine 1+ (Negative); RBC,Urine 2 /hpf (0-5); Specific Gravity,Urine 1.027 (1.001-1.035); Squamous Epithelial Cell,Urine 57 /hpf (0-4); WBC,Urine >182 /hpf (0-5)
[2019-08-22] MEDS ORDERED: DEXTROSE 5%-LACTATED RINGERS 1,000 ML IV SCH (10:45)
[2019-08-22 12:50] VITALS: BP 122/84; PULSE 97; RESP 15; TEMP 97
--- NOTE | 2019-08-30 11:00 | P.MSEPDOC ---
Presenting Problems - Arrival Data Date of Arrival on Unit: 08/22/19 Time of Arrival on Unit: 09:56 Mode of Transport: Ambulatory - Complaint OB-Reason for Admission/Chief Complaint: Hyperemesis Medical History - Information : 2 Para: 1 Term: 1 : 0 Abortions: Spontaneous or Elective: 0 Number of Living Children: 1 - Gestational Age Gestational Age by SHABBIR (wks/days): 35 Weeks and 5 Days Review of Systems - Review of Systems Constitutional: No problems Breast: No problems ENT: No problems Cardiovascular: No problems Respiratory: No problems Gastrointestinal: No problems Genitourinary: No problems Musculoskeletal: No problems Neurological: Dizziness Skin: No problems Vital Signs - Temperature Temperature: 97.0 F Temperature Source: Temporal Artery Scan - Pulse Sitting Brachial Pulse Rate: 97 Pulse Assessment Method: Automatic Cuff - Respirations Respiratory Rate: 15 Oxygen Delivery Method: Room Air O2 Sat by Pulse Oximetry: 98 - Blood Pressure Right Arm Sitting Blood Pressure: 122/84 Blood Pressure Mean: 96 Blood Pressure Source: Automatic Cuff Medical Screen Scoring (Pre) - Cervical Exam Dilation: Exam Deferred Effacement: Exam Deferred Membranes: Intact - Uterine Contractions Frequency: > 5 minutes apart = 1 Duration: N/A Intensity: N/A - Maternal Vital Signs Maternal Temperature: N/A Maternal Blood Pressure: N/A Signs of Preeclampsia: N/A Maternal Respirations: N/A - Maternal Trauma Maternal Trauma: N/A - Assessment - Baby A Baseline FHR: 125 Heart Rate - NICHD Category: Category I (Normal) = 0 NST: Reactive Position: N/A Station: N/A - Total Score - Baby A Total Score - Baby A: 1 - Total Score - Baby B Total Score - Baby B: 1 - Total Score - Baby C Total Score - Baby C: 1 - Level of Risk - Baby A Level of Risk - Baby A: Low (0-5) - Level of Risk - Baby B Level of Risk - Baby B: Low (0-5) - Level of Risk - Baby C Level of Risk - Baby C: Low (0-5) Physician Notification (Pre) - Physician Notified Physician Notified Date: 08/22/19 Physician Notified Time: 10:11 New Order Received: Yes - Notification Comment Comment: PT HERE FOR HYPEREMESIS, GIVEN 1L D5/LR AND 4MG ZOFRAN IVP Disposition - Disposition OB Disposition: Triage, Discharge to home, Written follow up instructions reviewed Discharge Date: 08/22/19 Discharge Time: 11:10 I agree with the RN Medical Screening Exam: Yes Risk & Benefit of care provided described in d/c instruction: Yes Diagnosis: MILD HYPEREMESIS GRAVIDARUM
== END 2019-08-22 11:10 | disposition home or self-care (01) ==
LOC: FBPOP 09:56
PROVIDERS: ATTEND Obstetrics & Gynecology
DX: O21.0 Mild hyperemesis gravidarum (principal); Z3A.35 35 weeks gestation of pregnancy
CPT/HCPCS: 59025; 99214; 96361; 96375; 81001; J2405

== ENCOUNTER 2019-08-25 11:22 | Outpatient (CLI) | payer BC ==
[2019-08-25] MEDS ORDERED: ONDANSETRON 4 MG/2 ML VIAL IM STA (11:53)
[2019-08-25] MEDS ORDERED: LACTATED RINGERS 1,000 ML IV SCH ×2 (12:00)
[2019-08-25 13:39] LABS: Basophils # (A) 0.1 k/uL (0-0.2); Basophils % (A) 1 %; Eosinophils # (A) 0.1 k/uL (0-0.7); Eosinophils % (A) 1 %; HCT 31.7 % (34.0-46.0); HGB 9.9 gm/dL (11.4-16.0); Hypochromasia Slight; Lymphocytes % (A) 13 %; MCH 25.8 pg (25.0-35.0); MCHC 31.1 g/dL (31.0-37.0); MCV 82.9 fL (80.0-100.0); Monocytes # (A) 0.3 k/uL (0-1.0); Monocytes % (A) 3 %; Neutrophils # (A) 6.6 k/uL (1.3-7.7); Neutrophils % (A) 81 %; Platelet Count 247 k/uL (150-450); RBC 3.82 m/uL (3.80-5.40); RDW 15.3 % (11.5-15.5); WBC 8.2 k/uL (3.8-10.6)
[2019-08-25 13:45] LABS: ALT 8 U/L (4-34); AST 21 U/L (14-36); African American GFR (CKD) >90 (>60 ml/min/1.73 sqM); Albumin 3.1 g/dL (3.5-5.0); Alkaline Phosphatase 141 U/L (38-126); Anion Gap 5 mmol/L; Blood Urea Nitrogen 7 mg/dL (7-17); Calcium 8.3 mg/dL (8.4-10.2); Carbon Dioxide 23 mmol/L (22-30); Chloride 109 mmol/L (98-107); Glucose 79 mg/dL (74-99); Non-African American GFR(CKD) >90 (>60 ml/min/1.73 sqM); Sodium 137 mmol/L (137-145); Total Bilirubin 0.5 mg/dL (0.2-1.3); Total Protein 6.1 g/dL (6.3-8.2)
[2019-08-25 14:18] LABS: Appearance,Urine Clear (Clear); Bilirubin,Urine Negative (Negative); Blood,Urine Negative (Negative); Color,Urine Yellow; Glucose,Urine (UA) Negative (Negative); Ketones,Urine Trace (Negative); Leukocyte Esterase,Urine Trace (Negative); Mucus,Urine Moderate /hpf; Nitrite,Urine Negative (Negative); PH, Urine 6.5 (5.0-8.0); Protein,Urine 1+ (Negative); Specific Gravity,Urine 1.026 (1.001-1.035); Squamous Epithelial Cell,Urine <1 /hpf (0-4); Urobilinogen,Urine <2.0 mg/dL (<2.0); WBC,Urine 1 /hpf (0-5)
[2019-08-25 17:05] VITALS: BP 106/72; PULSE 85; RESP 16; TEMP 97.3
--- NOTE | 2019-09-09 11:35 | P.MSEPDOC ---
Presenting Problems - Arrival Data Date of Arrival on Unit: 08/25/19 Time of Arrival on Unit: 11:23 Mode of Transport: Ambulatory - Complaint OB-Reason for Admission/Chief Complaint: Observation/Evaluation Medical History - Information : 2 Para: 1 Term: 1 : 0 Abortions: Spontaneous or Elective: 0 Number of Living Children: 1 - Gestational Age Gestational Age by SHABBIR (wks/days): 36 Weeks and 1 Days Review of Systems - Review of Systems Constitutional: No problems Breast: No problems ENT: No problems Cardiovascular: No problems Respiratory: No problems Gastrointestinal: No problems Genitourinary: No problems Musculoskeletal: No problems Neurological: No problems Skin: No problems Vital Signs - Temperature Temperature: 97.3 F Temperature Source: Temporal Artery Scan - Pulse Right Sitting Pulse Rate: 85 Pulse Assessment Method: Automatic Cuff - Respirations Respiratory Rate: 16 Oxygen Delivery Method: Room Air - Blood Pressure Right Arm Blood Pressure: 106/72 Blood Pressure Mean: 83 Blood Pressure Source: Automatic Cuff Medical Screen Scoring (Pre) - Cervical Exam Dilation: Exam Deferred Effacement: Exam Deferred Membranes: Intact - Uterine Contractions Frequency: N/A Duration: N/A Intensity: N/A - Maternal Vital Signs Maternal Temperature: N/A Maternal Blood Pressure: N/A Signs of Preeclampsia: N/A Maternal Respirations: N/A - Maternal Trauma Maternal Trauma: N/A - Assessment - Baby A Baseline FHR: 145 Heart Rate - NICHD Category: Category I (Normal) = 0 NST: Reactive Position: N/A Station: N/A - Total Score - Baby A Total Score - Baby A: 0 - Total Score - Baby B Total Score - Baby B: 0 - Total Score - Baby C Total Score - Baby C: 0 - Level of Risk - Baby A Level of Risk - Baby A: Low (0-5) - Level of Risk - Baby B Level of Risk - Baby B: Low (0-5) - Level of Risk - Baby C Level of Risk - Baby C: Low (0-5) Physician Notification (Pre) - Physician Notified Physician Notified Date: 08/25/19 Physician Notified Time: 14:25 New Order Received: Yes (D/c home after iv fluids infused) Disposition - Disposition OB Disposition: Discharge to home Discharge Date: 08/25/19 Discharge Time: 15:05 I agree with the RN Medical Screening Exam: Yes Risk & Benefit of care provided described in d/c instruction: Yes Diagnosis: VOMITING OF , UNSPECIFIED
== END 2019-08-25 15:10 | disposition home or self-care (01) ==
LOC: FBPOP 11:22
PROVIDERS: ATTEND Obstetrics & Gynecology Obstetrics
DX: O21.9 Vomiting of pregnancy, unspecified (principal); Z3A.36 36 weeks gestation of pregnancy
CPT/HCPCS: 59025; 99213; 96365; 96375; 80053; 85025; 81001; J2405; 96360; 99214

== ENCOUNTER 2019-09-02 01:55 | Outpatient (CLI) | payer BC ==
[2019-09-02 03:33] VITALS: BP 111/72; PULSE 93; RESP 16; TEMP 97.8
--- NOTE | 2019-09-10 08:00 | P.MSEPDOC ---
Presenting Problems - Arrival Data Date of Arrival on Unit: 09/02/19 Time of Arrival on Unit: 01:55 Mode of Transport: Wheelchair - Complaint OB-Reason for Admission/Chief Complaint: Possible Onset of Labor Medical History - Information : 2 Para: 1 Term: 1 : 0 Abortions: Spontaneous or Elective: 0 Number of Living Children: 1 - Gestational Age Gestational Age by SHABBIR (wks/days): 37 Weeks and 2 Days Review of Systems - Review of Systems Constitutional: No problems Breast: No problems ENT: No problems Cardiovascular: No problems Respiratory: No problems Gastrointestinal: No problems Genitourinary: No problems Musculoskeletal: No problems Neurological: No problems Skin: No problems Vital Signs - Temperature Temperature: 97.8 F Temperature Source: Temporal Artery Scan - Pulse Right Brachial Pulse Rate: 93 Pulse Assessment Method: Automatic Cuff - Respirations Respiratory Rate: 16 Oxygen Delivery Method: Room Air - Blood Pressure Right Arm Blood Pressure: 111/72 Blood Pressure Mean: 85 Blood Pressure Source: Automatic Cuff Medical Screen Scoring (Pre) - Cervical Exam Dilation: 1-3 cm = 1 Membranes: Intact - Uterine Contractions Frequency: > 5 minutes apart = 1 - Maternal Vital Signs Maternal Temperature: N/A Maternal Blood Pressure: N/A Signs of Preeclampsia: N/A Maternal Respirations: N/A - Maternal Trauma Maternal Trauma: N/A - Assessment - Baby A Baseline FHR: 140 Heart Rate - NICHD Category: Category I (Normal) = 0 NST: Reactive Position: N/A Station: N/A - Total Score - Baby A Total Score - Baby A: 2 - Total Score - Baby B Total Score - Baby B: 2 - Total Score - Baby C Total Score - Baby C: 2 - Level of Risk - Baby A Level of Risk - Baby A: Low (0-5) - Level of Risk - Baby B Level of Risk - Baby B: Low (0-5) - Level of Risk - Baby C Level of Risk - Baby C: Low (0-5) Physician Notification (Pre) - Physician Notified Physician Notified Date: 09/02/19 Physician Notified Time: 02:25 New Order Received: Yes - Notification Comment Comment: RN spoke with Dr. Russ. RN reported patients cervical exam of 1.5/50/- 2 and. contractions every three to five minutes. Patient reported contractions since 16:00. Patients vital signs WNL. Reactive NST. RN instructed to recheck patients cervix in one. hour and if patient remains unchanged patient may be discharged. If change occurs,. physician would like a call back. Patient updated on plan of care and is in agreement.After one hour, cervical exam remains unchanged. Patient instructed that she needs pelvic rest, increase oral fluids, and keep follow up appointment with Dr. Skinner. Disposition - Disposition OB Disposition: Physician follow up in office, Discharge to home Discharge Date: 09/02/19 Discharge Time: 03:15 I agree with the RN Medical Screening Exam: Yes Risk & Benefit of care provided described in d/c instruction: Yes Diagnosis: FALSE LABOR AT OR AFTER 37 COMPLETED WEEKS OF GESTATION
== END 2019-09-02 03:15 | disposition home or self-care (01) ==
LOC: FBPOP 01:55
PROVIDERS: ATTEND Obstetrics & Gynecology
DX: O47.1 False labor at or after 37 completed weeks of gestation (principal); Z3A.37 37 weeks gestation of pregnancy
CPT/HCPCS: 59025; 99213

== ENCOUNTER 2019-09-07 06:00 | Inpatient (IN) | payer BC ==
[2019-09-07] MEDS ORDERED: TERBUTALINE 1 MG/ML VIAL SQ PRN (06:08)
[2019-09-07] MEDS ORDERED: CARBOPROST TROMETHAMINE 250 MCG/ML 1 ML AMP IM PRN (06:08)
[2019-09-07] MEDS ORDERED: OXYTOCIN 10 UNIT/ML 1 ML VIAL IM PRN (06:08)
[2019-09-07] MEDS ORDERED: LIDOCAINE 0.5% (PF) 5 MG/ML (50 ML SDV) SQ PRN (06:08)
[2019-09-07] MEDS ORDERED: METHYLERGONOVINE 0.2 MG/ML 1 ML AMP IM PRN (06:08)
[2019-09-07] MEDS ORDERED: OXYTOCIN 30 UNITS/500 ML NS 30 UNIT in SALINE 1 500ML.BAG IV SCH (06:15)
[2019-09-07] MEDS ORDERED: LACTATED RINGERS 1,000 ML IV SCH (06:15)
[2019-09-07] MEDS: LACTATED RINGERS 1,000 ML IV SCH ×2 (06:30→10:38)
[2019-09-07] MEDS ORDERED: AMPICILLIN 2,000 MG in SODIUM CHLORIDE 0.9% 100 ML IVPB STA (06:44)
[2019-09-07 07:03] LABS: Basophils % (A) 0 %; Eosinophils # (A) 0.1 k/uL (0-0.7); Eosinophils % (A) 1 %; HGB 8.9 gm/dL (11.4-16.0); Hypochromasia Slight; Lymphocytes # (A) 1.7 k/uL (1.0-4.8); Lymphocytes % (A) 16 %; MCH 25.5 pg (25.0-35.0); MCHC 31.8 g/dL (31.0-37.0); MCV 80.3 fL (80.0-100.0); Mean Platelet Volume 7.7; Monocytes # (A) 0.4 k/uL (0-1.0); Monocytes % (A) 4 %; Neutrophils # (A) 8.1 k/uL (1.3-7.7); Neutrophils % (A) 78 %; Platelet Count 225 k/uL (150-450); RBC 3.49 m/uL (3.80-5.40); WBC 10.4 k/uL (3.8-10.6)
[2019-09-07] MEDS ORDERED: BUTORPHANOL 1 MG/ML 1 ML VIAL IV PRN (08:41)
--- NOTE | 2019-09-07 09:41 | P.HPOB ---
History of Present Illness H&P Date: 09/07/19 Chief Complaint: IUP at 30-0/7 weeks, advanced cervical dilation This is a pleasant 28-year-old at 38-0/7 weeks that presents to labor and delivery for induction of labor. Patient has been struggling with hyperemesis gravidarum throughout the . She has noted weight loss since the beginning of the , she has been on leave from work since the second trimester. Patient has had multiple triage visits for IV hydration and IV Zofran. Patient has routinely taken by mouth Zofran, and Phenergan suppositories at night. Patient was seen in the office yesterday noted to be /-2 station with complaints of contractions and a triage visit for rule out labor over the weekend. Induction of labor secondary to advanced cervical dilation and hyperemesis symptoms were reviewed patient wished induction. On blood work she has a blood type of O+, rubella immune, RPR nonreactive, B surface engine negative, HIV negative. She does have a history of hypothyroidism which has been stable through the . She did vomit her Glucola and hemoglobin A1c throughout the have been normal. She received T On 07/13 in the flu shot in addition on 07/13. Group beta strep was positive on 08/25/19. She has been followed closely with testing all NSTs and ultrasounds have been normal in nature. Last estimated weight was 38th percentile. Review of Systems Constitutional: Denies chills, Denies fatigue, Denies fever Ears, nose, mouth and throat: Denies headache Cardiovascular: Reports leg edema Respiratory: Denies dyspnea Gastrointestinal: Reports constipation, Reports nausea, Reports vomiting, Denies diarrhea Genitourinary: Reports Past Medical History Past Medical History: Sleep Apnea/CPAP/BIPAP, Thyroid Disorder Additional Past Medical History / Comment(s): infertility, "Microscopic" colitis History of Any Multi-Drug Resistant Organisms: None Reported Past Surgical History: Orthopedic Surgery Additional Past Surgical History / Comment(s): bilateral bunyon surgery, plastic surgery from dog attack Past Anesthesia/Blood Transfusion Reactions: Previous Problems w/ Anesthesia Additional Past Anesthesia/Blood Transfusion Reaction / Comment(s): post a nesthesia low heart rate agitation Past Psychological History: Depression Smoking Status: Never smoker Past Alcohol Use History: Rare Additional Past Alcohol Use History / Comment(s): quit with Past Drug Use History: None Reported - Past Family History Mother Additional Family Medical History / Comment(s): morbid obesity, has had bariatric sx Medications and Allergies Home Medications Medication Instructions Recorded Confirmed Type Levothyroxine Sodium 75 mcg PO DAILY 05/20/19 09/07/19 History Ondansetron [Zofran] 4 mg PO Q12HR PRN 05/20/19 09/07/19 History Sertraline HCl [Zoloft] 150 mg PO DAILY 05/20/19 09/07/19 History Promethazine Suppository 25 mg RECTAL Q12HR 06/17/19 09/07/19 History [Phenergan] Famotidine [Pepcid] 40 mg PO HS 07/07/19 09/07/19 History Allergies Allergy/AdvReac Type Severity Reaction Status Date / Time dimethicone Allergy Rash/Hives Verified 09/02/19 02:00 [From A and D Emollient] glycerin Allergy Rash/Hives Verified 09/02/19 02:00 [From A and D Emollient] neomycin Allergy Rash/Hives Verified 09/02/19 02:00 stearyl alcohol Allergy Rash/Hives Verified 09/02/19 02:00 [From A and D Emollient] Exam Osteopathic Statement: *. No significant issues noted on an osteopathic structural exam other than those noted in the History and Physical/Consult. Vital Signs Temp Pulse Resp BP Pulse Ox 09/07/19 06:06 96.7 F L 96 16 117/82 99 Intake and Output 09/06/19 09/07/19 09/07/19 22:59 06:59 14:59 Other: Weight 93.44 kg Targeted physical exam is performed in this date in general this is a well- nourished well-developed female in no acute distress, breathing is noted to be nonlabored her heart has a regular rate and rhythm, abdomen is noted to be gravid and appropriate for gestational age, heart tones are noted to be reactive, category 1 and she is giselle irregularly. On cervical exam she is 4/50/-2 amniotomy is performed and clear fluid was obtained. Results Result Diagrams: 09/07/19 06:30 Abnormal Lab Results - Last 24 Hours (Table) 09/07/19 Range/Units 06:30 RBC 3.49 L (3.80-5.40) m/uL Hgb 8.9 L (11.4-16.0) gm/dL Hct 28.0 L (34.0-46.0) % Neutrophils # 8.1 H (1.3-7.7) k/uL Assessment and Plan (1) Hyperemesis gravidarum Current Visit: Yes Status: Acute Code(s): O21.0 - MILD HYPEREMESIS GRAVIDARUM SNOMED Code(s): 25545303 (2) Obesity (BMI 35.0-39.9 without comorbidity) Current Visit: No Status: Acute Code(s): E66.9 - OBESITY, UNSPECIFIED SNOMED Code(s): 588526640 (3) Term Narrative/Plan: Given her advanced cervical dilation will plan induction of labor with Pitocin per hospital protocol. Epidural/Stadol is discussed with the patient she will notify us if she desires either. Anticipate spontaneous vaginal delivery later today. Current Visit: No Status: Acute Code(s): Z34.80 - ENCOUNTER FOR SUPRVSN OF NORMAL , UNSP TRIMESTER SNOMED Code(s): 15987427
[2019-09-07] MEDS ORDERED: ePHEDrine SULFATE/0.9% NACL/PF 50 MG/5 ML SYRINGE IV ONE (10:41)
[2019-09-07] MEDS ORDERED: fentaNYL (PF) 50 MCG/ML 5 ML AMP ONE (10:41)
[2019-09-07] MEDS ORDERED: SODIUM CHLORIDE 0.9% 100 ML BAG ONE (10:41)
[2019-09-07] MEDS ORDERED: ROPIVACAINE 5MG/ML 20ML VIAL ONE (10:41)
[2019-09-07] MEDS ORDERED: AMPICILLIN 1,000 MG in SODIUM CHLORIDE 0.9% 50 ML IVPB SCH (11:00)
[2019-09-07] MEDS ORDERED: IBUPROFEN 600 MG TAB PO PRN (11:54)
[2019-09-07] MEDS ORDERED: HYDROcodone/APAP 5-325MG 1 EACH TAB PO PRN (11:54)
[2019-09-07] MEDS ORDERED: diphenhydrAMINE 50 MG/ML 1 ML VIAL IVP PRN ×2 (11:54)
[2019-09-07] MEDS ORDERED: ACETAMINOPHEN TAB 325 MG TAB PO PRN (11:54)
[2019-09-07] MEDS ORDERED: SIMETHICONE 80 MG CHEWABLE PO PRN (11:54)
[2019-09-07] MEDS ORDERED: diphenhydrAMINE 25 MG CAP PO PRN (11:54)
[2019-09-07] MEDS ORDERED: HYDROCORTISONE 2.5% RECTAL CREAM 30 GM TUBE RECTAL PRN (11:54)
[2019-09-07] MEDS ORDERED: ZOLPIDEM 5 MG TAB PO PRN (11:54)
[2019-09-07] MEDS ORDERED: BENZOCAINE/MENTHOL SPRAY 1 GM/SPRAY AEROSOL TOPICAL PRN (11:54)
[2019-09-07] MEDS ORDERED: WITCH HAZEL 1 EACH MED..PAD TOPICAL PRN (11:54)
[2019-09-07] MEDS ORDERED: diphenhydrAMINE ELIXIR 25 MG/10 ML CUP PO PRN (11:54)
[2019-09-07] MEDS ORDERED: diphenhydrAMINE 50 MG CAP PO PRN (11:54)
[2019-09-07] MEDS ORDERED: LANOLIN CREAM 5 GM TUBE TOPICAL PRN (11:54)
[2019-09-07] MEDS ORDERED: OXYTOCIN 20 UNITS/1000 ML NS 1,000 ML IV SCH (12:00)
--- NOTE | 2019-09-07 12:00 | P.PROBDLV ---
Vaginal Delivery Note - . Vaginal Delivery Note: This pleasant 28-year-old 2 para 1001 at 38-0/7 weeks presents to labor and delivery for induction of labor secondary to advanced cervical dilation and hyperemesis gravidarum. Patient was admitted to labor and delivery and Pitocin induction of labor was begun per hospital protocol. Patient was noted to be 470 m once regular contractions were appreciated immune me was performed and clear fluid was obtained. Patient became uncomfortable was noted to be 6 cm and requested epidural placement. Epidural was placed without difficulty by the anesthesia department. She progressed to complete began pushing and had a normal spontaneous vaginal delivery of a viable female at 1135, weight of 6 lbs. 11 oz. with Apgars of 99 at one and 5 minutes respectively. After two- minute delayed the umbilical cord was doubly clamped and cut the placenta was delivered spontaneously intact with a three-vessel cord being noted. The uterus is noted to be firm and below the umbilicus. On inspection the patient's vaginal vault a first-degree vaginal laceration was noted this was repaired in usual fashion with 3-0 Rapide. Rectal exam was performed and normal in nature no abnormality's were appreciated. Estimated blood loss 300 mL, patient and infant tolerated delivery well and are resting complete.
[2019-09-07] MEDS: SENNOSIDES-DOCUSATE SODIUM 1 EACH TAB PO SCH (19:58)
[2019-09-07] MEDS ORDERED: FAMOTIDINE 20 MG TAB PO SCH (21:00)
[2019-09-08 05:28] LABS: Basophils % (A) 0 %; Eosinophils % (A) 0 %; HCT 25.6 % (34.0-46.0); HGB 8.2 gm/dL (11.4-16.0); Hypochromasia Moderate; Lymphocytes # (A) 1.8 k/uL (1.0-4.8); Lymphocytes % (A) 17 %; MCHC 32.3 g/dL (31.0-37.0); MCV 80.4 fL (80.0-100.0); Mean Platelet Volume 8.2; Monocytes # (A) 0.5 k/uL (0-1.0); Monocytes % (A) 4 %; Neutrophils # (A) 8.3 k/uL (1.3-7.7); Neutrophils % (A) 77 %; Platelet Count 222 k/uL (150-450); Poikilocytosis Slight; RBC 3.18 m/uL (3.80-5.40); RDW 14.8 % (11.5-15.5); WBC 10.8 k/uL (3.8-10.6)
--- NOTE | 2019-09-08 05:39 | P.DS ---
Providers Date of admission: 09/07/19 06:02 Expected date of discharge: 09/08/19 Attending physician: Rabia Skinner Primary care physician: Stated None - Discharge Diagnosis(es) (1) Hyperemesis gravidarum Current Visit: Yes Status: Acute (2) Obesity (BMI 35.0-39.9 without comorbidity) Current Visit: No Status: Acute (3) Term Current Visit: No Status: Acute (4) Anemia Current Visit: No Status: Acute (5) Status post vaginal delivery Current Visit: No Status: Acute Hospital Course: This is a pleasant 20-year-old 2 para 1001 that was admitted 8 38-0/7 weeks for advanced cervical dilation and a , acute by hyperemesis gravidarum and noted weight loss. Patient was admitted Pitocin induction of labor was begun per hospital protocol. Patient underwent amniotomy after regular contractions were noted. Patient was noted to have clear fluid upon amniotomy. Patient regressed through labor eventually becoming uncomfortable and requested epidural placement. Epidural was placed by the anesthesia department out difficulty. She quickly progressed to complete began pushing and had a normal spontaneous vaginal delivery of a viable female at 1135 with a weight of 6 lbs. 11 oz., Apgars of 9 and 9 at one and 5 minutes respectively. Patient did sustain a first-degree vaginal laceration which was repaired in the usual fashion with 3-0 repeat. On this day #1 she is in bleeding and voiding without difficulty. She is tolerating a regular diet without nausea or vomiting. She states her lochia is minimal. She is breast-feeding without difficulty. She does wish discharge home at 24 hours. Patient Condition at Discharge: Good Plan - Discharge Summary New Discharge Prescriptions: No Action Ondansetron [Zofran] 4 mg PO Q12HR PRN PRN Reason: Nausea Sertraline HCl [Zoloft] 150 mg PO DAILY Levothyroxine Sodium 75 mcg PO DAILY Promethazine Suppository [Phenergan] 25 mg RECTAL Q12HR Famotidine [Pepcid] 40 mg PO HS Discharge Medication List Levothyroxine Sodium 75 mcg PO DAILY 05/20/19 [History] Ondansetron [Zofran] 4 mg PO Q12HR PRN 05/20/19 [History] Sertraline HCl [Zoloft] 150 mg PO DAILY 05/20/19 [History] Promethazine Suppository [Phenergan] 25 mg RECTAL Q12HR 06/17/19 [History] Famotidine [Pepcid] 40 mg PO HS 07/07/19 [History] Follow up Appointment(s)/Referral(s): Rabia Skinner DO [Doctor of Osteopathic Medicine] - 4 Weeks Patient Instructions/Handouts: Vaginal Delivery (DC), Vaginal Delivery (GEN) Discharge Disposition: HOME SELF-CARE
[2019-09-08] MEDS ORDERED: LEVOTHYROXINE 75 MCG TAB PO SCH (06:30)
[2019-09-08] MEDS ORDERED: SERTRALINE 50 MG TAB PO SCH (09:00)
[2019-09-08] MEDS: SENNOSIDES-DOCUSATE SODIUM 1 EACH TAB PO SCH (09:33)
[2019-09-08 09:35] VITALS: BP 128/73; PULSE 55; RESP 20; TEMP 98.3
== END 2019-09-08 12:55 | disposition home or self-care (01) | DRG 807 ==
LOC: 4FBP 06:02
PROVIDERS: ADMIT Obstetrics & Gynecology Obstetrics; ATTEND Obstetrics & Gynecology Obstetrics
PROC: 10E0XZZ Delivery of Products of Conception, External Approach (ICD-10-PCS; principal; 2019-09-07)
PROC: 0HQ9XZZ Repair Perineum Skin, External Approach (ICD-10-PCS; 2019-09-07)
PROC: 00HU33Z Insertion of Infusion Device into Spinal Canal, Percutaneous Approach (ICD-10-PCS; 2019-09-07)
PROC: 3E0R3BZ Introduction of Anesthetic Agent into Spinal Canal, Percutaneous Approach (ICD-10-PCS; 2019-09-07)
PROC: 10907ZC Drainage of Amniotic Fluid, Therapeutic from Products of Conception, Via Natural or Artificial Opening (ICD-10-PCS; 2019-09-07)
DX: O21.0 Mild hyperemesis gravidarum (principal); Z37.0 Single live birth; E66.9 Obesity, unspecified; O99.344 Other mental disorders complicating childbirth; O70.0 First degree perineal laceration during delivery; O99.02 Anemia complicating childbirth; D64.9 Anemia, unspecified; O99.62 Diseases of the digestive system complicating childbirth; K21.9 Gastro-esophageal reflux disease without esophagitis; G47.30 Sleep apnea, unspecified; O99.89 Other specified diseases and conditions complicating pregnancy, childbirth and the puerperium; O99.214 Obesity complicating childbirth; O99.284 Endocrine, nutritional and metabolic diseases complicating childbirth; E03.9 Hypothyroidism, unspecified; F32.9 Major depressive disorder, single episode, unspecified; Z3A.38 38 weeks gestation of pregnancy; Z79.890 Hormone replacement therapy; Z79.899 Other long term (current) drug therapy; Z88.1 Allergy status to other antibiotic agents; Z88.8 Allergy status to other drugs, medicaments and biological substances
CPT/HCPCS: 85025; 86850; 86900; 86901

== ENCOUNTER → 2020-03-31 | Outpatient (CLI) | payer BC ==
[2020-03-31 12:52] LABS: Basophils % (A) 1 %; Eosinophils # (A) 0.1 k/uL (0-0.7); Eosinophils % (A) 2 %; HCT 34.7 % (34.0-46.0); HGB 11.2 gm/dL (11.4-16.0); Hypochromasia Slight; Lymphocytes # (A) 1.5 k/uL (1.0-4.8); Lymphocytes % (A) 21 %; MCH 28.3 pg (25.0-35.0); MCHC 32.2 g/dL (31.0-37.0); MCV 87.7 fL (80.0-100.0); Mean Platelet Volume 7.6; Monocytes # (A) 0.3 k/uL (0-1.0); Monocytes % (A) 5 %; Neutrophils # (A) 4.9 k/uL (1.3-7.7); Neutrophils % (A) 70 %; Platelet Count 251 k/uL (150-450); RBC 3.96 m/uL (3.80-5.40); WBC 7.1 k/uL (3.8-10.6)
[2020-03-31 13:14] LABS: Partial Thromboplastin Time 24.6 sec (22.0-30.0); Prothrombin Time 10.8 sec (9.0-12.0)
[2020-03-31 19:33] LABS: % Iron Saturation 13.95 (12.00-45.00)
[2020-03-31 20:05] LABS: Ferritin 9.6 ng/mL (10.0-291.0)
== END | disposition home or self-care (01) ==
LOC: LABWHC1 11:11
PROVIDERS: ATTEND Family Medicine
DX: D64.9 Anemia, unspecified (principal); R58 Hemorrhage, not elsewhere classified; E03.9 Hypothyroidism, unspecified
CPT/HCPCS: 36415; 82728; 83090; 83540; 83550; 84439; 84443; 84481; 85025; 85306; 85384; 85610; 85730

== ENCOUNTER 2020-11-06 11:35 | Emergency (ER) | payer BC ==
[2020-11-06 11:51] VITALS: RESP 18
[2020-11-06 12:46] LABS: Appearance,Urine Clear (Clear); Bilirubin,Urine Negative (Negative); Blood,Urine Negative (Negative); Color,Urine Yellow; Glucose,Urine (UA) Negative (Negative); Ketones,Urine Negative (Negative); Leukocyte Esterase,Urine Negative (Negative); Nitrite,Urine Negative (Negative); Protein,Urine Negative (Negative); Specific Gravity,Urine 1.027 (1.001-1.035); Urobilinogen,Urine <2.0 mg/dL (<2.0)
[2020-11-06] MEDS ORDERED: MORPHINE SULFATE 2 MG/ML SYRINGE IVP STA (12:47)
[2020-11-06 13:22] LABS: Basophils % (A) 0 %; Eosinophils # (A) 0.2 k/uL (0-0.7); Eosinophils % (A) 3 %; HCT 38.8 % (34.0-46.0); HGB 13.1 gm/dL (11.4-16.0); Lymphocytes # (A) 1.4 k/uL (1.0-4.8); Lymphocytes % (A) 21 %; MCH 29.9 pg (25.0-35.0); MCHC 33.7 g/dL (31.0-37.0); MCV 88.7 fL (80.0-100.0); Mean Platelet Volume 6.7; Monocytes # (A) 0.3 k/uL (0-1.0); Monocytes % (A) 5 %; Neutrophils # (A) 4.6 k/uL (1.3-7.7); Neutrophils % (A) 69 %; Platelet Count 219 k/uL (150-450); RBC 4.37 m/uL (3.80-5.40); RDW 12.6 % (11.5-15.5); WBC 6.7 k/uL (3.8-10.6)
[2020-11-06 13:49] LABS: ALT 20 U/L (4-34); AST 23 U/L (14-36); African American GFR (CKD) >90 (>60 ml/min/1.73 sqM); Albumin 3.8 g/dL (3.5-5.0); Alkaline Phosphatase 74 U/L (38-126); Anion Gap 7 mmol/L; Blood Urea Nitrogen 11 mg/dL (7-17); Calcium 8.7 mg/dL (8.4-10.2); Carbon Dioxide 28 mmol/L (22-30); Chloride 104 mmol/L (98-107); Glucose 107 mg/dL (74-99); Non-African American GFR(CKD) >90 (>60 ml/min/1.73 sqM); Potassium 3.9 mmol/L (3.5-5.1); Sodium 139 mmol/L (137-145); Total Bilirubin 0.3 mg/dL (0.2-1.3); Total Protein 6.6 g/dL (6.3-8.2)
--- NOTE | 2020-11-06 13:52 | ED ---
Female Urogenital HPI <Alen Camp P - Last Filed: 11/06/20 23:01> - General Source: patient Mode of arrival: ambulatory Limitations: no limitations - History of Present Illness Last Menstrual Period: 10/14/20 <Jodie Doss - Last Filed: 11/07/20 07:21> - General Chief complaint: Urogenital Stated complaint: ovarian cyst Time Seen by Provider: 11/06/20 12:03 - History of Present Illness Initial comments: 30-year-old female with history of ovarian cysts present to the ER today for chief complaint of right lower pelvic x 1 day.Patient states it feels like she's had issues with her ovarian cysts in the past. She states it began yesterday evening is very sharp, he states when it is not sharp it is aching in intensity. She states she has fullness in the lower back he states all these symptoms are typical of her ovarian cysts but it feels very intense. She states the pain as a 9 out of 10. Patient states she has some nausea when the pain is at maximal intensity. She denies vomiting she denies hematuria CVA tenderness fevers dysuria or urgency frequency. Patient denies . She denies vaginal discharge concern for sexual transmitted diseases. She denies right upper quadrant pain. Patient denies any chest pain shortness of breath she denies any leg swelling or additional complaints upon arrival patient appears well nontoxic no acute distress (Jodie Doss) - Related Data Home Medications Medication Instructions Recorded Confirmed Levothyroxine Sodium [Synthroid] 88 mcg PO DAILY 11/06/20 11/06/20 Pantoprazole [Protonix] 40 mg PO DAILY 11/06/20 11/06/20 Sertraline HCl [Zoloft] 100 mg PO DAILY 11/06/20 11/06/20 buPROPion XL [Wellbutrin Xl] 150 mg PO DAILY 11/06/20 11/06/20 Allergies Allergy/AdvReac Type Severity Reaction Status Date / Time dimethicone Allergy Rash/Hives Verified 11/06/20 13:44 [From A and D Emollient] glycerin Allergy Rash/Hives Verified 11/06/20 13:44 [From A and D Emollient] neomycin Allergy Rash/Hives Verified 11/06/20 13:44 stearyl alcohol Allergy Rash/Hives Verified 11/06/20 13:44 [From A and D [facility]] Review of Systems ROS Other: All systems not noted in ROS Statement are negative. <Alen Camp P - Last Filed: 11/06/20 23:01> ROS Other: All systems not noted in ROS Statement are negative. <Jodie Doss - Last Filed: 11/07/20 07:21> ROS Statement: Those systems with pertinent positive or pertinent negative responses have been documented in the HPI. Past Medical History Past Medical History: Sleep Apnea/CPAP/BIPAP, Thyroid Disorder Additional Past Medical History / Comment(s): infertility, "Microscopic" colitis, ovarian cyst History of Any Multi-Drug Resistant Organisms: None Reported Past Surgical History: Orthopedic Surgery Additional Past Surgical History / Comment(s): bilateral bunyon surgery, plastic surgery from dog attack Past Anesthesia/Blood Transfusion Reactions: Previous Problems w/ Anesthesia Additional Past Anesthesia/Blood Transfusion Reaction / Comment(s): post anesthesia low heart rate agitation Past Psychological History: Depression Smoking Status: Former smoker Past Alcohol Use History: Occasional Past Drug Use History: Marijuana - Past Family History Mother Additional Family Medical History / Comment(s): morbid obesity, has had bariatric sx <Jodie Doss - Last Filed: 11/07/20 07:21> General Exam Limitations: no limitations <Jodie Doss - Last Filed: 11/07/20 07:21> - General Exam Comments Initial Comments: General: The patient is awake and alert, in no distress Eye: +3 mm pupils are equal, round and reactive to light, extra-ocular movements are intact. No nystagmus. There is normal conjunctiva bilaterally. No signs of icterus. Ears, nose, mouth and throat: There are moist mucous membranes and no oral lesions. Neck: The neck is supple, there is no tenderness or JVD. Cardiovascular: There is a regular rate and rhythm. No murmur, rub or gallop is appreciated. Respiratory: Lungs are clear to auscultation, respirations are non-labored, breath sounds are equal. No wheezes, stridor, rales, or rhonchi. Gastrointestinal: Soft, non-distended, tender to palpation of the RLQ, abdomen without masses or organomegaly noted. There is no rebound or guarding present. ' : some erythematous cervical lesions (disucssed with patient-told to get PAP done in next 1-2 weeks), scant discharge, no odors. Pt denies adnexla tenderness or cervical motion tenderness on exam. Musculoskeletal: Normal ROM, no tenderness. Strength 5/5. Sensation intact. Pulses equal bilaterally 2+. Neurological: A&O x 3. CN II-XII intact grossly, There are no obvious motor or sensory deficits. Coordination appears grossly intact. Speech is normal. Skin: Skin is warm and dry and no rashes or lesions are noted. Psychiatric: Cooperative, appropriate mood & affect, normal judgment. (Jodie Doss) Course <Jodie Doss - Last Filed: 11/07/20 07:21> Vital Signs 11/06/20 11/06/20 11/06/20 11:49 14:43 16:22 Temperature 98.5 F 98.0 F 98.2 F Pulse Rate 65 60 56 L Respiratory 18 18 18 Rate Blood Pressure 134/66 121/87 129/90 O2 Sat by Pulse 99 99 98 Oximetry - Reevaluation(s) Reevaluation #1: Pt with hx of ovarian cysts presenting for ~16 hours of right lower pelvic pain. sharp feels like previous issues with cysts. more persistent. patient pain improved after morphine. pelvic no adnexal tenderness, scant discharge, no cervical motion tenderness. Labs no leukocytosis, urine unremarkable. no fever. no change in appetite-nor mcburneys point tenderness. US pending to r/o torsion/pelvic process-- case was signed out to Alen Camp for final disposition/care plan. (Jodie Doss) Medical Decision Making - Lab Data Result diagrams: 11/06/20 12:59 11/06/20 12:59 <Alen Camp - Last Filed: 11/06/20 23:01> - Lab Data Result diagrams: 11/06/20 12:59 11/06/20 12:59 <Jodie Doss - Last Filed: 11/07/20 07:21> - Medical Decision Making Care signed out to me at 1430 by Lisa Doss. Briefly this is a 30-year-old patient with right lower quadrant pain starting last night at 10 PM. This feels like a cyst that has burst in the past. Pain is been persistent and constant since that time. No vomiting. No fevers. No diarrhea. Currently rating pain at a 5 out of 10. No abdominal tenderness on my repeat exam. Patient reports slight right-sided tenderness on pelvic exam performed by Jodie. Laboratory evaluation appeared normal. No leukocytosis. Urinalysis does not show evidence of infection. HCG negative. Ultrasound was obtained In which they were unable to obtain venous flow within the right ovary likely due to positioning of the ovary in the pelvis. The normal size of the right ovary argues against ovarian torsion. No pelvic free fluid. There is good arterial flow seen within the right ovary. Case was discussed with Dr. Brown who recom mended contacting patient's SYSTEMS SECURITY CONSULTANT. I did speak directly with Dr. pandya. She knows this patient well as she does have a PCOS picture. Given good arterial flow she recommends outpatient follow-up. She states she can see her tomorrow in the afternoon. Patient is feeling better at this time she is stable for discharge and agreeable to plan of care. (Alen Camp) - Lab Data Lab Results 11/06/20 11/06/20 11/06/20 Range/Units 12:13 12:13 12:59 WBC 6.7 (3.8-10.6) k/uL RBC 4.37 (3.80-5.40) m/uL Hgb 13.1 (11.4-16.0) gm/dL Hct 38.8 (34.0-46.0) % MCV 88.7 (80.0-100.0) fL MCH 29.9 (25.0-35.0) pg MCHC 33.7 (31.0-37.0) g/dL RDW 12.6 (11.5-15.5) % Plt Count 219 (150-450) k/uL MPV 6.7 Neutrophils % 69 % Lymphocytes % 21 % Monocytes % 5 % Eosinophils % 3 % Basophils % 0 % Neutrophils # 4.6 (1.3-7.7) k/uL Lymphocytes # 1.4 (1.0-4.8) k/uL Monocytes # 0.3 (0-1.0) k/uL Eosinophils # 0.2 (0-0.7) k/uL Basophils # 0.0 (0-0.2) k/uL Sodium (137-145) mmol/L Potassium (3.5-5.1) mmol/L Chloride (98-107) mmol/L Carbon Dioxide (22-30) mmol/L Anion Gap mmol/L BUN (7-17) mg/dL Creatinine (0.52-1.04) mg/dL Est GFR (CKD-EPI)AfAm (>60 ml/min/1.73 sqM) Est GFR (CKD-EPI)NonAf (>60 ml/min/1.73 sqM) Glucose (74-99) mg/dL Calcium (8.4-10.2) mg/dL Total Bilirubin (0.2-1.3) mg/dL AST (14-36) U/L ALT (4-34) U/L Alkaline Phosphatase (38-126) U/L Total Protein (6.3-8.2) g/dL Albumin (3.5-5.0) g/dL Urine Color Yellow Urine Appearance Clear (Clear) Urine pH 7.0 (5.0-8.0) Ur Specific [place] 1.027 (1.001-1.035) Urine Protein Negative (Negative) Urine Glucose (UA) Negative (Negative) Urine Ketones Negative (Negative) Urine Blood Negative (Negative) Urine Nitrite Negative (Negative) Urine Bilirubin Negative (Negative) Urine Urobilinogen <2.0 (<2.0) mg/dL Ur Leukocyte Esterase Negative (Negative) Urine HCG, Qual Not Detected (Not Detectd) Trichomonas Ag (Rapid) (Negative) 11/06/20 11/06/20 Range/Units 12:59 14:42 WBC (3.8-10.6) k/uL RBC (3.80-5.40) m/uL Hgb (11.4-16.0) gm/dL Hct (34.0-46.0) % MCV (80.0-100.0) fL MCH (25.0-35.0) pg MCHC (31.0-37.0) g/dL RDW (11.5-15.5) % Plt Count (150-450) k/uL MPV Neutrophils % % Lymphocytes % % Monocytes % % Eosinophils % % Basophils % % Neutrophils # (1.3-7.7) k/uL Lymphocytes # (1.0-4.8) k/uL Monocytes # (0-1.0) k/uL Eosinophils # (0-0.7) k/uL Basophils # (0-0.2) k/uL Sodium 139 (137-145) mmol/L Potassium 3.9 (3.5-5.1) mmol/L Chloride 104 (98-107) mmol/L Carbon Dioxide 28 (22-30) mmol/L Anion Gap 7 mmol/L BUN 11 (7-17) mg/dL Creatinine 0.66 (0.52-1.04) mg/dL Est GFR (CKD-EPI)AfAm >90 (>60 ml/min/1.73 sqM) Est GFR (CKD-EPI)NonAf >90 (>60 ml/min/1.73 sqM) Glucose 107 H (74-99) mg/dL Calcium 8.7 (8.4-10.2) mg/dL Total Bilirubin 0.3 (0.2-1.3) mg/dL AST 23 (14-36) U/L ALT 20 (4-34) U/L Alkaline Phosphatase 74 (38-126) U/L Total Protein 6.6 (6.3-8.2) g/dL Albumin 3.8 (3.5-5.0) g/dL Urine Color Urine Appearance (Clear) Urine pH (5.0-8.0) Ur Specific [place] (1.001-1.035) Urine Protein (Negative) Urine Glucose (UA) (Negative) Urine Ketones (Negative) Urine Blood (Negative) Urine Nitrite (Negative) Urine Bilirubin (Negative) Urine Urobilinogen (<2.0) mg/dL Ur Leukocyte Esterase (Negative) Urine HCG, Qual (Not Detectd) Trichomonas Ag (Rapid) Negative (Negative) Disposition Is patient prescribed a controlled substance at d/c from ED?: No Time of Disposition: 16:03 <Alen Camp P - Last Filed: 11/06/20 23:01> <Jodie Doss - Last Filed: 11/07/20 07:21> Clinical Impression: Pelvic pain Disposition: HOME SELF-CARE Condition: Good Instructions (If sedation given, give patient instructions): Pelvic Pain in Women (ED) Additional Instructions: Please take Motrin and Tylenol for pain. Follow-up with Dr Pandya tomorrow. She would like to see you in the afternoon, call in the am to secure an appointment. Return for any worsening symptoms such as worsening pain, vomiting, or fevers. Referrals: Rafal Goetz MD [Primary Care Provider] - 1-2 days Rabia Pandya DO [Doctor of Osteopathic Medicine] - 1-2 days
--- NOTE | 2020-11-06 14:38 | US ---
EXAMINATION TYPE: US transvaginal plus Dopplers DATE OF EXAM: 11/06/2020 COMPARISON: None CLINICAL HISTORY: 30-year-old female with Right pelvic pain, 2, para 2 TECHNIQUE: Transvaginal ER exam. Color Doppler and spectral waveform analysis of the ovarian arteries and veins. Date of LMP: 10/14/2020 FINDINGS: EXAM MEASUREMENTS: Uterus: 6.9 x 3.8 x 4.3 cm Endometrial Stripe: 0.7 cm Right Ovary: 4.2 x 2.2 x 2.2 cm for a volume of 10.6 mL Left Ovary: 2.1 x 1.7 x 2.3 cm for a volume of 4.3 mL 1. Uterus: Anteverted. The myometrium is slightly heterogeneous 2. Endometrium: wnl 3. Right Ovary: multiple follicles 4. Left Ovary: multiple follicles Spectral, color and waveform doppler imaging shows good arterial and venous flow within the left ov evelyn, good arterial flow seen within the right ovary, unable to obtain venous flow within the right ov evelyn due to deep position within pelvis. 5. Bilateral Adnexa: wnl 6. Posterior cul-de-sac: wnl IMPRESSION: 1. Unable to obtain venous flow within the right ovary likely due to deep positioning of the ovary in the pelvis. The normal size of the right ovary argues against ovarian torsion. Clinical and Doppler ultrasound follow-up recommended if patient's symptoms persist. 2. No pelvic free fluid.
[2020-11-06] MEDS ORDERED: KETOROLAC 15 MG/ML 1 ML VIAL IM STA (16:07)
[2020-11-06] MEDS ORDERED: KETOROLAC 15 MG/ML 1 ML VIAL IVP STA (16:17)
[2020-11-06 16:23] VITALS: BP 129/90; PULSE 56; TEMP 98.2
== END 2020-11-06 16:24 | disposition home or self-care (01) ==
LOC: EC 11:35
DX: R10.2 Pelvic and perineal pain (principal); E07.9 Disorder of thyroid, unspecified; F32.9 Major depressive disorder, single episode, unspecified; F12.90 Cannabis use, unspecified, uncomplicated; Z87.891 Personal history of nicotine dependence
CPT/HCPCS: 36415; 80053; 85025; 81003; 81025; 87808; 87070; 93975; 76830; 99284; 96374; 96375; J2270; J1885; 87491; 87591

== ENCOUNTER → 2021-02-27 | Outpatient (CLI) | payer BC ==
[2021-02-27 22:34] LABS: HCT 39.7 % (37.2-46.3); HGB 12.6 g/dL (12.0-15.0); MCH 28.8 pg (27.0-32.0); MCHC 31.7 g/dL (32.0-37.0); MCV 90.8 fL (80.0-97.0); Mean Platelet Volume 9.7 fL (9.5-12.2); Platelet Count 295 X 10*3/uL (140-440); RBC 4.37 X 10*6/uL (4.10-5.20); RDW 13.2 % (11.5-14.5); WBC 7.06 X 10*3/uL (4.50-10.00)
== END | disposition home or self-care (01) ==
LOC: LABWHC1 16:26
PROVIDERS: ATTEND Obstetrics & Gynecology Obstetrics
DX: D64.9 Anemia, unspecified (principal)
CPT/HCPCS: 36415; 85027

== ENCOUNTER → 2021-03-26 | Outpatient (CLI) | payer BC ==
[2021-03-26 18:58] LABS: Basophils # (A) 0.05 X 10*3/uL (0.00-0.10); Basophils % (A) 0.6 %; Eosinophils # (A) 0.17 X 10*3/uL (0.04-0.35); Eosinophils % (A) 2.1 %; HCT 38.8 % (37.2-46.3); HGB 12.7 g/dL (12.0-15.0); Lymphocytes # (A) 1.59 X 10*3/uL (0.90-5.00); Lymphocytes % (A) 19.8 %; MCH 29.8 pg (27.0-32.0); MCHC 32.7 g/dL (32.0-37.0); MCV 91.1 fL (80.0-97.0); Mean Platelet Volume 9.9 fL (9.5-12.2); Monocytes # (A) 0.51 X 10*3/uL (0.20-1.00); Monocytes % (A) 6.4 %; Neutrophils # (A) 5.68 X 10*3/uL (1.80-7.70); Neutrophils % (A) 70.7 %; Platelet Count 263 X 10*3/uL (140-440); RBC 4.26 X 10*6/uL (4.10-5.20); WBC 8.03 X 10*3/uL (4.50-10.00)
[2021-03-26 19:33] LABS: African American GFR (CKD) 114.7 (60.0-200.0); Anion Gap 6.1 mmol/L (4.00-12.00); Carbon Dioxide 25.9 mmol/L (21.6-31.8); Non-African American GFR(CKD) 98.9 (60.0-200.0); Potassium 4.2 mmol/L (3.5-5.5)
== END | disposition home or self-care (01) ==
LOC: LABWHC1 12:12
PROVIDERS: ATTEND Obstetrics & Gynecology Obstetrics
DX: Z01.812 Encounter for preprocedural laboratory examination (principal); N92.0 Excessive and frequent menstruation with regular cycle
CPT/HCPCS: 36415; 80051; 82565; 82947; 84520; 85025; 87086

== ENCOUNTER 2021-04-02 07:24 | Day surgery (SDC) | payer BC ==
[2021-03-29 10:07] VITALS: BMI 40.2
[~2021-04-02 07:24] MED LIST changes: +DEXAMETHASONE SOD PHOSPHATE 4 MG/ML 1 ML VIAL IV ONE; +HYDROmorphone 0.5 MG/0.5 ML SYRINGE IVP PRN; +LACTATED RINGERS 1,000 ML IV SCH; +LIDOCAINE 1% (10MG/ML) FOR IV START INTRADERMA PRN; +METOCLOPRAMIDE 5 MG/ML 2 ML VIAL IVP PRN; +MIDAZOLAM 2 MG/2 ML VIAL IV PRN; +ONDANSETRON 4 MG/2 ML VIAL IVP ONE; -Pre Op ABX Message 1 EACH MISC MISCELLANE ONE; +SCOPOLAMINE 1.5MG/72HR PATCH TRANSDERM ONE
--- NOTE | 2021-04-02 09:15 | P.HPOB ---
History of Present Illness H&P Date: 04/02/21 Chief Complaint: Menorrhagia, dysmenorrhea, failed medical treatment This is a 30-year-old 2 para 2001 that has been struggling with heavy menstrual bleeding for many months. Patient states her menstrual flow has been worsening over the last 6 months. Menstrual cycles have been irregular and very heavy with clots. Patient does have a history of abnormal bleeding, she has been treated with IUD, NuvaRing and is now OCP without relief of her heavy menstrual bleeding or severe dysmenorrhea. Patient does have a normal pelvic ultrasound. Review of Systems Constitutional: Reports fatigue, Denies fever Ears, nose, mouth and throat: Denies headache Cardiovascular: Denies leg edema Respiratory: Denies dyspnea Gastrointestinal: Denies constipation, Denies diarrhea, Denies nausea, Denies vomiting Genitourinary: Reports abnormal vaginal bleeding, Reports dysmenorrhea, Reports menorrhagia, Denies Past Medical History Past Medical History: Thyroid Disorder Additional Past Medical History / Comment(s): Hx infertility, "Microscopic" colitis, ovarian cyst. Heavy menses w/ severe abd pain. History of Any Multi-Drug Resistant Organisms: None Reported Past Surgical History: Orthopedic Surgery Additional Past Surgical History / Comment(s): bilateral bunion surgery, plastic surgery from dog attack Past Anesthesia/Blood Transfusion Reactions: Previous Problems w/ Anesthesia, Motion Sickness Additional Past Anesthesia/Blood Transfusion Reaction / Comment(s): post anesthesia low heart rate, disoriented w/ agitation - was told she received Valium. Smoking Status: Former smoker - Past Family History Mother Additional Family Medical History / Comment(s): morbid obesity, has had bariatric sx Medications and Allergies Home Medications Medication Instructions Recorded Confirmed Type Levothyroxine Sodium [Synthroid] 88 mcg PO DAILY 11/06/20 04/02/21 History Acetaminophen [Tylenol Extra 500 - 1,000 mg PO DIRECTED PRN 03/29/21 04/02/21 History Strength] Cbd Oil 1 applic PO DIRECTED PRN 03/29/21 04/02/21 History Desvenlafaxine Succinate [Pristiq] 50 mg PO HS 03/29/21 04/02/21 History Ibuprofen [Motrin] 800 mg PO Q8H PRN 03/29/21 04/02/21 History QUEtiapine [SEROquel] 50 mg PO HS 03/29/21 04/02/21 History Allergies Allergy/AdvReac Type Severity Reaction Status Date / Time dimethicone Allergy Rash/Hives Verified 04/02/21 07:59 [From A and D Emollient] glycerin Allergy Rash/Hives Verified 04/02/21 07:59 [From A and D Emollient] neomycin Allergy Rash/Hives Verified 04/02/21 07:59 stearyl alcohol Allergy Rash/Hives Verified 04/02/21 07:59 [From A and D Emollient] Exam Osteopathic Statement: *. No significant issues noted on an osteopathic structural exam other than those noted in the History and Physical/Consult. 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 Assessment and Plan (1) Menorrhagia Current Visit: Yes Status: Acute Code(s): N92.0 - EXCESSIVE AND FREQUENT MENSTRUATION WITH REGULAR CYCLE SNOMED Code(s): 376522180 (2) Dysmenorrhea Current Visit: Yes Status: Acute Code(s): N94.6 - DYSMENORRHEA, UNSPECIFIED SNOMED Code(s): 944493542 Plan: This 30-year-old non patient presents for robotic cyst vaginal hysterectomy with bilateral salpingectomy, diagnostic cystoscopy, possible open. Patient has been struggling with heavy menstrual bleeding, severe dysmenorrhea for many months. Patient has failed medical option. Patient states she is done with childbearing and does wish definitive treatment with hysterectomy. Risks are reviewed with the patient in detail including but not limited to infection, bleeding, damage to bladder, bowel, ureteric injury. Patient states understanding of these risks and wishes to proceed. All questions are answered to patient's satisfaction we will proceed to operating suite.
[2021-04-02] MEDS ORDERED: ROCURONIUM 10 MG/ML (5 ML VIAL) IV ONE (09:36)
[2021-04-02] MEDS ORDERED: NEOSTIGMINE 1 MG/ML 10 ML VIAL ONE (09:36)
[2021-04-02] MEDS ORDERED: fentaNYL (PF) 50 MCG/ML 2 ML AMP ONE (09:36)
[2021-04-02] MEDS ORDERED: LIDOCAINE 1% INJ 10MG/ML (20 ML MDV) ONE (09:36)
[2021-04-02] MEDS ORDERED: KETAMINE 10 MG/ML 20 ML VIAL ONE (09:36)
[2021-04-02] MEDS ORDERED: HYDROmorphone (PF) 1 MG/ML ONE (09:36)
[2021-04-02] MEDS ORDERED: MIDAZOLAM 2 MG/2 ML VIAL ONE (09:36)
[2021-04-02] MEDS ORDERED: SUCCINYLCHOLINE CHLORIDE 100 MG/5 ML SYR IV ONE (09:36)
[2021-04-02] MEDS ORDERED: GLYCOPYRROLATE 0.2 MG/ML 2 ML VIAL ONE (09:36)
[2021-04-02] MEDS ORDERED: KETOROLAC 15 MG/ML 1 ML VIAL ONE (09:36)
[2021-04-02] MEDS ORDERED: PROPOFOL 10 MG/ML 20 ML VIAL IV ONE (09:36)
[2021-04-02] MEDS ORDERED: BUPIVACAINE (PF) 0.25% 30 ML VIAL SQ ONE ×2 (10:19→11:14)
[2021-04-02] MEDS ORDERED: LACTATED RINGERS 1,000 ML IV ONE (10:33)
[2021-04-02] MEDS ORDERED: IBUPROFEN 600 MG TAB PO PRN (11:16)
[2021-04-02] MEDS ORDERED: diphenhydrAMINE 50 MG/ML 1 ML VIAL IVP PRN (11:16)
[2021-04-02] MEDS ORDERED: ONDANSETRON 4 MG/2 ML VIAL IVP PRN (11:16)
[2021-04-02] MEDS ORDERED: Acetaminophen-Codeine 300-30mg TAB PO PRN (11:16)
--- NOTE | 2021-04-02 11:23 | P.OP ---
Date of Procedure: 04/02/21 Preoperative Diagnosis: Menorrhagia, dysmenorrhea, failed medical treatment Postoperative Diagnosis: Same Procedure(s) Performed: Robotic-assisted vaginal hysterectomy with bilateral salpingectomy, diagnostic cystoscopy Anesthesia: CONY Surgeon: Rabia Skinner Semi Driver #1: Zara Russ Estimated Blood Loss (ml): 10 IV fluids (ml): 1,000 Urine output (ml): 500 Pathology: other (Uterus and fallopian tubes) Condition: stable Disposition: PACU Indications for Procedure: 30-year-old with increasing complaints of heavy menstrual bleeding and severe dysmenorrhea. Patient has failed medical treatment and wishes definitive treatment. Patient states she is done with childbearing and wishes definitive hysterectomy. Operative Findings: Globular uterus suspicious for adenomyosis, implant of endometriosis appreciated on the patient's left ovary, otherwise ovaries appeared grossly normal. Description of Procedure: Patient was taken back to the operating suite where general anesthesia was obtained without difficulty by the anesthesia department. She was then prepped and draped in normal sterile fashion in the dorsal lithotomy position. A Spicer catheter was then placed under sterile technique. Weighted speculum was placed in the posterior vaginal vault the anterior lip of the cervix is visualized and grasped with a single-tooth tenaculum. The endocervical canal was then serially dilated and a V care uterine made pillar was advanced. The balloon was then insufflated with approximate 5 mL of air and placed snugly against the cervix a ll instruments were removed from the patient's vaginal vault. Attention was then turned the patient's abdomen where approximately 2 finger breaths above the umbilicus a small skin incision is made through this incision the various needles placed. Once very stenosed deemed to be in the proper position with a drop of CO2 pressure with insufflation of CO2 gas CO2 insufflation was allowed to occur. At this time the incision was extended to 8 mm and an 8 mm trocar and sleeve with the laparoscope in place is placed through the skin incision and toward the pneumoperitoneum. The above-noted on except visualized. At this point the additional port sites are placed these are placed 10 cm lateral and 3 cm inferior to midline port. These were all placed under direct visualization. In the left upper quadrant a 12 mm trocar and sleeve is placed under direct visualization. At this time the da Kalyani robot is docked in the usual fashion the operative arms are placed. The right operative arm the monopolar scissors, the left operative arm the bipolar forceps. Attention then turned to the patient's left fallopian tube which was grasped the mesosalpinx is coagulated and transected. This continued toward the uterine ovarian ligament. The uterine ovarian ligament was quite distally approximately divided. This continued through the broad and toward the round which was coagulated distally a nd proximally divided. The vesicouterine peritoneum was identified the bladder flap was then created using sharp and blunt dissection. At this time the descending branch the uterine artery was visualized coagulated and transected, hemostasis was appreciated. Attention was then turned to the right fallopian tube which was grasped elevated the mesosalpinx was coagulated and transected. The utero-ovarian ligament was visualized regular distally and proximally divided. This continued toward through the broad and toward the round which was coagulated and transected, hemostasis was appreciated. The bladder flap from the right was then created using sharp and blunt dissection. The ascending branch of the uterine artery from the right was then visualized coagulated and transected, hemostasis was appreciated throughout. Ray-Chad was then placed into the abdomen and the bladder was then bluntly dissected away from the operating field. Ray-Chad was then removed. At this time the only remaining attachment was a vaginal attachment therefore colpotomy incision was made in a circumferential fashion the uterus was then delivered through the vaginal opening. The pelvis was then copiously irrigated. The vaginal cuff was closed with multiple 0 Vicryl [id number] sutures. Hemostasis was appreciated. FloSeal was placed along the cuff. At this time all instruments were removed from the patient's abdomen and the da Kalyani robot was undocked. Attention was then turned the patient's Spicer catheter which was removed without difficulty and a cystoscope was performed. The cystoscope was placed through the urethra toward the bladder bladder bubble was appreciated both ureteral orifices were noted be spilling clear yellow urine. The cystoscope was removed. At this time attention was then turned the patient's abdomen where the skin incisions were closed with 4-0 Vicryl in a subcuticular fashion. Steri-Strips and sterile dressings were applied. All counts were noted to be correct 2 at the end of the procedure. Patient did tolerate procedure well and was taken the recovery room awake in stable condition.
[2021-04-02] MEDS ORDERED: ACETAMINOPHEN IV (For NPO) 1,000 MG in EMPTY BAG 1 BAG IVPB ONE (11:45)
[2021-04-02] MEDS ORDERED: IBUPROFEN IV 800 MG in SODIUM CHLORIDE 0.9% 250 ML IV ONE (11:45)
[2021-04-02] MEDS: Acetaminophen-Codeine 300-30mg TAB PO PRN (18:55)
[2021-04-02] MEDS: SENNOSIDES-DOCUSATE SODIUM 1 EACH TAB PO SCH (19:41)
[2021-04-03 07:35] LABS: Basophils % (A) 0 %; Eosinophils % (A) 0 %; HGB 12.9 gm/dL (11.4-16.0); Lymphocytes # (A) 1.7 k/uL (1.0-4.8); Lymphocytes % (A) 14 %; MCH 29.1 pg (25.0-35.0); MCHC 31.6 g/dL (31.0-37.0); MCV 92.2 fL (80.0-100.0); Mean Platelet Volume 7.3; Monocytes # (A) 0.5 k/uL (0-1.0); Monocytes % (A) 5 %; Neutrophils # (A) 9.3 k/uL (1.3-7.7); Neutrophils % (A) 80 %; Platelet Count 303 k/uL (150-450); RBC 4.45 m/uL (3.80-5.40); RDW 12.9 % (11.5-15.5); WBC 11.8 k/uL (3.8-10.6)
[2021-04-03] MEDS: SENNOSIDES-DOCUSATE SODIUM 1 EACH TAB PO SCH (07:51)
[2021-04-03] MEDS: Acetaminophen-Codeine 300-30mg TAB PO PRN (07:51)
[2021-04-03 08:08] VITALS: BP 122/76; PULSE 76; RESP 16; TEMP 98.2
--- NOTE | 2021-04-03 08:39 | P.DS ---
Providers Date of admission: 04/02/2021 Expected date of discharge: 04/03/21 Attending physician: Rabia Skinner Primary care physician: Rafal Goetz - Discharge Diagnosis(es) (1) Menorrhagia Current Visit: Yes Status: Acute (2) Dysmenorrhea Current Visit: Yes Status: Acute (3) S/P laparoscopic hysterectomy Current Visit: Yes Status: Acute Hospital Course: This is a 30-year-old that presented to the hospital yesterday for scheduled robotic cyst vaginal hysterectomy with bilateral salpingectomy, diagnostic cystoscopy. Patient had been struggling with heavy menstrual bleeding and severe dysmenorrhea. Patient has failed all outpatient medical treatment including IUD, nuva ring and OCPs. Patient did elected definitive treatment as she is done with childbearing. Patient Condition at Discharge: Good Plan - Discharge Summary Discharge Rx Participant: No New Discharge Prescriptions: No Action Levothyroxine Sodium [Synthroid] 88 mcg PO DAILY Ibuprofen [Motrin] 800 mg PO Q8H PRN PRN Reason: Pain Cbd Oil 1 applic PO DIRECTED PRN PRN Reason: Pain QUEtiapine [SEROquel] 50 mg PO HS Desvenlafaxine Succinate [Pristiq] 50 mg PO HS Acetaminophen [Tylenol Extra Strength] 500 - 1,000 mg PO DIRECTED PRN PRN Reason: Pain Discharge Medication List Levothyroxine Sodium [Synthroid] 88 mcg PO DAILY 11/06/20 [History] Acetaminophen [Tylenol Extra Strength] 500 - 1,000 mg PO DIRECTED PRN 03/29/21 [History] Cbd Oil 1 applic PO DIRECTED PRN 03/29/21 [History] Desvenlafaxine Succinate [Pristiq] 50 mg PO HS 03/29/21 [History] Ibuprofen [Motrin] 800 mg PO Q8H PRN 03/29/21 [History] QUEtiapine [SEROquel] 50 mg PO HS 03/29/21 [History] Follow up Appointment(s)/Referral(s): Rabia Skinner DO [Doctor of Osteopathic Medicine] - 2 Weeks Patient Instructions/Handouts: *Surgery [facility] - Scopalamine Patch Instructions, Laparoscopic Hysterectomy (DC), Laparoscopic Hysterectomy (GEN) Activity/Diet/Wound Care/Special Instructions: Patient can expect spotting to menstrual-like bleeding postoperatively. No tub baths, intercourse, swimming until 6-8 weeks postoperatively. No intercourse until 810 weeks postoperatively. Discharge Disposition: HOME SELF-CARE
[2021-04-03] MEDS ORDERED: ACETAMINOPHEN TAB 325 MG TAB PO PRN (11:17)
== END 2021-04-03 09:15 | disposition home or self-care (01) ==
LOC: OR 07:24 → 4FBP 11:32 → OR 04-03 09:15
PROVIDERS: ATTEND Obstetrics & Gynecology Obstetrics
DX: N92.0 Excessive and frequent menstruation with regular cycle (principal); N94.6 Dysmenorrhea, unspecified; E07.9 Disorder of thyroid, unspecified; K52.839 Microscopic colitis, unspecified; N97.9 Female infertility, unspecified; Z98.890 Other specified postprocedural states; Z87.891 Personal history of nicotine dependence; Z79.890 Hormone replacement therapy; Z79.899 Other long term (current) drug therapy; Z88.8 Allergy status to other drugs, medicaments and biological substances
CPT/HCPCS: 58550; S2900; 81025; 85025; 86850; 86900; 86901; 88307

== ENCOUNTER → 2021-11-05 | Outpatient (CLI) | payer BC ==
--- NOTE | 2021-11-05 16:52 | CT ---
EXAMINATION TYPE: CT abdomen pelvis w con DATE OF EXAM: 11/05/2021 COMPARISON: None HISTORY: RT side abdomen pain. Hx hysterectomy STAT HOLD AND CALL CT DLP: 995.10 mGycm Automated exposure control for dose reduction was used. CONTRAST: Performed with IV Contrast, patient injected with 100 mL of Isovue 300. Images obtained from the diaphragm to the floor the pelvis with IV contrast and oral contrast. Lung bases are clear of consolidation. There is no pleural effusion. Heart size is normal. There is n o pericardial effusion. Liver spleen stomach pancreas appear intact. Bile ducts are not dilated. There is no adrenal mass. Kidneys show satisfactory contrast opacification. There is no hydronephrosi s. Ureters are not dilated. There is no retroperitoneal adenopathy. Bladder distends smoothly. There is no inguinal hernia. Uterus is absent. There is no evidence of pelvic mass. There is a 2 cm cyst on the left ovary. No evidence of thickened appendix. The terminal ileum appears normal. Appendix not d efinitely seen. The lumbar vertebra have normal alignment. There is no compression fracture. Posterior elements are i ntact. The bony pelvis is intact. Hip joints appear normal. IMPRESSION: No acute abnormality of the abdomen and pelvis. Appendix not definitely seen. No sign of appendicitis .
== END | disposition home or self-care (01) ==
LOC: RADCTMAIN 14:20
PROVIDERS: ATTEND Family Medicine
DX: R10.9 Unspecified abdominal pain (principal); Z90.710 Acquired absence of both cervix and uterus
CPT/HCPCS: 74177; Q9967

== ENCOUNTER 2022-02-21 16:30 | Emergency (ER) | payer BC ==
[2022-02-21 18:06] VITALS: RESP 18
[2022-02-21] MEDS ORDERED: ACETAMINOPHEN TAB 500 MG TAB PO STA (22:23)
[2022-02-21] MEDS ORDERED: BEBTELOVIMAB (EUA) 175 MG/2 ML VIAL IV ONE (22:30)
--- NOTE | 2022-02-21 22:35 | ED ---
Recheck HPI - General Chief Complaint: Recheck/Abnormal Lab/Rx Stated Complaint: SOB,Cough,Fever Time Seen by Provider: 02/21/22 22:12 Source: patient, RN notes reviewed Mode of arrival: ambulatory Limitations: no limitations - History of Present Illness Initial Comments: Patient here complaining of a headache, body aches, dry cough, runny nose, patient tested positive for COVID-19 onto home test yesterday and was tested at her doctor's office this morning. Sent in for monoclonal antibody. Subjective fever and chills, no changes in vision or hearing, no sore throat or difficulty with speech, no neck pain, no chest pain or shortness of breath, no abdominal pain, no nausea or vomiting, no changes in urination or bowel movem ents, no numbness or tingling, no extremity pain, no skin rashes or lesions. - Related Data Home Medications Medication Instructions Recorded Confirmed Levothyroxine Sodium [Synthroid] 88 mcg PO DAILY 11/06/20 04/02/21 Acetaminophen [Tylenol Extra 500 - 1,000 mg PO DIRECTED PRN 03/29/21 04/02/21 Strength] Cbd Oil 1 applic PO DIRECTED PRN 03/29/21 04/02/21 Desvenlafaxine Succinate [Pristiq] 50 mg PO HS 03/29/21 04/02/21 Ibuprofen [Motrin] 800 mg PO Q8H PRN 03/29/21 04/02/21 QUEtiapine [SEROquel] 50 mg PO HS 03/29/21 04/02/21 Allergies Allergy/AdvReac Type Severity Reaction Status Date / Time dimethicone Allergy Rash/Hives Verified 02/21/22 18:06 [From A and D Emollient] glycerin Allergy Rash/Hives Verified 02/21/22 18:06 [From A and D Emollient] neomycin Allergy Rash/Hives Verified 02/21/22 18:06 stearyl alcohol Allergy Rash/Hives Verified 02/21/22 18:06 [From A and D Emollient] Review of Systems ROS Statement: Those systems with pertinent positive or pertinent negative responses have been documented in the HPI. ROS Other: All systems not noted in ROS Statement are negative. Past Medical History Past Medical History: Sleep Apnea/CPAP/BIPAP, Thyroid Disorder Additional Past Medical History / Comment(s): infertility, "Microscopic" colitis, ovarian cyst History of Any Multi-Drug Resistant Organisms: None Reported Past Surgical History: Orthopedic Surgery Additional Past Surgical History / Comment(s): bilateral bunyon surgery, plastic surgery from dog attack Past Anesthesia/Blood Transfusion Reactions: Previous Problems w/ Anesthesia Additional Past Anesthesia/Blood Transfusion Reaction / Comment(s): post anesthesia low heart rate agitation Past Psychological History: Depression Smoking Status: Never smoker - Past Family History Mother Additional Family Medical History / Comment(s): morbid obesity, has had bariatric sx General Exam - General Exam Comments Initial Comments: Mildly ill-appearing 31-year-old female who does not appear to be toxic. Well hydrated. Limitations: no limitations General appearance: alert, in no apparent distress Head exam: Present: atraumatic, normocephalic, normal inspection Eye exam: Present: normal appearance, PERRL, EOMI. Absent: scleral icterus, conjunctival injection, periorbital swelling ENT exam: Present: normal exam, normal oropharynx, mucous membranes moist, normal external ear exam. Absent: mucous membranes dry Neck exam: Present: normal inspection, full ROM. Absent: tenderness, meningismus, lymphadenopathy Respiratory exam: Present: normal lung sounds bilaterally. Absent: respiratory distress, wheezes, rales, rhonchi, stridor, chest wall tenderness, accessory muscle use, prolonged expiratory Cardiovascular Exam: Present: regular rate, normal rhythm, normal heart sounds. Absent: systolic murmur, diastolic murmur, rubs, gallop, clicks GI/Abdominal exam: Present: soft. Absent: distended, tenderness, guarding, rebound, rigid Extremities exam: Present: normal inspection, full ROM, normal capillary refill. Absent: tenderness, pedal edema, joint swelling, calf tenderness Back exam: Present: normal inspection Neurological exam: Present: alert, oriented X3, CN II-XII intact Psychiatric exam: Present: normal affect, normal mood Skin exam: Present: warm, dry, intact, normal color. Absent: rash Course Vital Signs 02/21/22 18:01 Temperature 98.8 F Pulse Rate 69 Respiratory 18 Rate Blood Pressure 141/101 O2 Sat by Pulse 100 Oximetry Medical Decision Making - Medical Decision Making Patient meets criteria for monoclonal antibody based on BMI. We'll order this. Conservative therapy otherwise. Discussed quarantine measures in detail. Patient was told to return to the ER for any signs or symptoms worsen. Told to return immediately if any other problems arise. All questions answered. Treatment plan discussed. Patient in agreement Every effort has been made to ensure accuracy of this dictation. However, due to the limitations of electronic medical records and dictation devices, errors in charting still occur. Supervising physician, Dr. Patel - Radiology Data Radiology results: report reviewed, image reviewed Disposition Clinical Impression: COVID-19 Disposition: HOME SELF-CARE Condition: Stable Instructions (If sedation given, give patient instructions): Coronavirus Disease 2019 (COVID-19) Additional Instructions: SELF QUARANTINE DISCHARGE: As you are at risk for symptoms due to coronavirus, please stay home and stay away from others as much as possible. Please maintain social distance of 6 feet if possible. You should not return to work until at least 3 days (72 hours) have passed since recovery of symptoms. This defined as resolution of fever without the use of fever reducing medicines and improvement in respiratory symptoms (e.g,, cough, shortness of breath) Isolation can end at least 5 days after symptom onset and after fever ends for 24 hours (without the use of fever-reducing medication) and symptoms are improving, if these people can continue to properly wear a well-fitted mask around others for 5 more days after the 5-day isolation period. If you're still having symptoms at the end of 5 day period, isolate for an additional 5 days. More information about what to do if you are sick can be found on the CDC website at https://www.cdc.gov/coronavirus/2019-ncov/nl-ndy-fvh-sick/byxzz-svpi-ewym.html Expect the symptoms to last for 7-14 days from onset. Use acetaminophen (Tylenol) as needed for discomfort. You can take a maximum of 1 gram every 6 hours for discomfort, with your total dose in 24 hours not exceeding 4 grams. Be sure to maintain hydration. Drink continuous water and/or items high in vitamin C, such as orange juice and/or lemonade. Unless you have high blood pressure, you may consider Sudafed (which is [id number]) for nasal congestion. I would suggest that a short acting Sudafed rather than the 24 hour Sudafed. For a cough you may take Mucinex or Robitussin. Also consider the use of Vicks Vapor Rub or your chest when you sleep. Use a humidifier that is cleaned frequently, in the bedroom at night. For Nausea /Vomiting/Diarrhea associated with your Illness: o Small frequent sips of room temperature liquids. o Diet: [place] Foods - If you are still experiencing discomfort and/or nausea please slowly advancing your diet using the BRAT Diet = bananas, rice, apples/apple sauce, toast. o With diarrhea avoid any dairy for 48 hours after symptoms resolved. o Continue with activity as tolerated. If your symptoms do get worse and you believe that the upper respiratory infection has developed into something else, such as pneumonia or severe dehydration, please return to the emergency department or follow-up with your primary care. But expect to be symptomatic for the days as indicated above Is patient prescribed a controlled substance at d/c from ED?: No Referrals: Rafal Goetz MD [Primary Care Provider] - 02/28/22 Time of Disposition: 23:53
--- NOTE | 2022-02-21 22:44 | XR ---
EXAMINATION TYPE: XR chest 2V DATE OF EXAM: 02/21/2022 COMPARISON: NONE HISTORY: Short of breath TECHNIQUE: 2 views FINDINGS: Heart and mediastinum are normal. Lungs are clear. Diaphragm is normal. Bony thorax appears normal. IMPRESSION: Normal chest.
[2022-02-22 00:31] VITALS: BP 112/84; PULSE 79; TEMP 98
== END 2022-02-22 00:30 | disposition home or self-care (01) ==
LOC: EC 16:30
DX: U07.1 COVID-19 (principal); E07.9 Disorder of thyroid, unspecified; Z79.890 Hormone replacement therapy; Z88.8 Allergy status to other drugs, medicaments and biological substances; Z88.1 Allergy status to other antibiotic agents
CPT/HCPCS: 71046; 99285; Q0222; 99284

== ENCOUNTER → 2022-07-15 | Outpatient (CLI) | payer BC ==
[2022-07-16 00:23] LABS: Urine Alcohol Negative (Negative); Urine Barbiturate Negative (Negative); Urine Cocaine Negative (Negative); Urine Methadone Negative (Negative); Urine Opiates Negative (Negative); Urine Phencyclidine Negative (Negative)
== END | disposition home or self-care (01) ==
LOC: LABWHC1 14:34
PROVIDERS: ATTEND Psychiatry & Neurology Psychiatry
DX: F33.1 Major depressive disorder, recurrent, moderate (principal)
CPT/HCPCS: 80306

== ENCOUNTER → 2024-02-07 | Outpatient (CLI) | payer BC ==
[2024-02-07 13:04] LABS: HCT 40.9 % (37.2-46.3); HGB 13.3 g/dL (12.0-15.0); MCHC 32.5 g/dL (32.0-37.0); MCV 92.3 FL (80.0-97.0); Mean Platelet Volume 9.2 FL (9.5-12.2); NRBC Per 100 WBC 0 X 10*3/uL (0.00-0.01); Platelet Count 240 X 10*3/uL (140-440); RBC 4.43 X 10*6/uL (4.10-5.20); RDW 12.5 % (11.5-14.5); WBC 6.48 X 10*3/uL (4.50-10.00)
[2024-02-07 13:05] LABS: Basophils # (A) 0.04 X 10*3/uL (0.00-0.10); Basophils % (A) 0.6 %; Eosinophils % (A) 3.1 %; Lymphocytes # (A) 1.29 X 10*3/uL (0.90-5.00); Lymphocytes % (A) 19.9 %; Monocytes # (A) 0.39 X 10*3/uL (0.20-1.00); Neutrophils # (A) 4.54 X 10*3/uL (1.80-7.70); Neutrophils % (A) 70.1 %
[2024-02-07 13:31] LABS: Chol/HDL Ratio 5.53 Ratio; LDL Cholesterol,Calculated 94.1 mg/dL (0.0-131.0); T4, Free (Free Thyroxine) 1.04 ng/dL (0.80-1.80)
[2024-02-07 15:19] LABS: ALT 39 U/L (8-44); AST 25 U/L (13-35); Albumin 4.3 g/dL (3.8-4.9); Albumin/Globulin Ratio 1.79 Ratio (1.60-3.17); Alkaline Phosphatase 93 U/L (41-126); Blood Urea Nitrogen 13.2 mg/dL (9.0-27.0); Calcium 8.9 mg/dL (8.7-10.3); Carbon Dioxide 22.6 mmol/L (21.6-31.8); Chloride 107 mmol/L (96-109); Globulin 2.4 g/dL (1.6-3.3); Glucose 116 mg/dL (70-110); Potassium 4.3 mmol/L (3.5-5.5); Sodium 141 mmol/L (135-145); Total Bilirubin 0.2 mg/dL (0.3-1.2); Total Protein 6.7 g/dL (6.2-8.2)
== END | disposition home or self-care (01) ==
LOC: LABWHC1 09:48
PROVIDERS: ATTEND Family Medicine
DX: Z00.00 Encounter for general adult medical examination without abnormal findings (principal); E03.9 Hypothyroidism, unspecified; E55.9 Vitamin D deficiency, unspecified
CPT/HCPCS: 36415; 80053; 80061; 82306; 83036; 84439; 84443; 84481; 85025

== ENCOUNTER → 2024-02-24 | Outpatient (CLI) | payer BC ==
--- NOTE | 2024-02-25 10:16 | US ---
EXAMINATION TYPE: US thyroid st tissue head/neck DATE OF EXAM: 02/24/2024 COMPARISON: NONE CLINICAL INDICATION: Female, 33 years old with history of E03.9 HYPOTHYROIDISM, UNSPECIFIED; hypothyr oidism GLAND SIZE: Right Lobe: 3.8x1.2x1.3 cm Overall Parenchyma: homogeneous Left Lobe: 3.2x0.8x0.9 cm Overall Parenchyma: homogeneous Isthmus Thickness: 0.3 cm NODULES RIGHT: # of nodules measured on right: 0 LEFT: # of nodules measured on left: 0 ISTHMUS: # of nodules measured in the isthmus: 0 Bilateral neck scanned, no evidence of lymphadenopathy. IMPRESSION: No suspicious thyroid nodules
== END | disposition home or self-care (01) ==
LOC: RADUSWWP 16:29
PROVIDERS: ATTEND Family Medicine
DX: E03.9 Hypothyroidism, unspecified (principal)
CPT/HCPCS: 76536